=== PATIENT | male | born 1960 | race Caucasian/White ===

== ENCOUNTER 2016-12-07 22:29 | Emergency (ER) | payer SELFPAY ==
[~2016-12-07 22:29] MED LIST: LIPI20TA PO; PLAV75TA29 PO
[2016-12-07 22:31] VITALS: BP 139/82; PULSE 80; RESP 16; TEMP 97.6; O2SAT 96
[2016-12-08 04:45] VITALS: BP 121/81; PULSE 71; RESP 18; O2SAT 98
[2016-12-08 05:05] VITALS: O2SAT 99
--- NOTE | 2016-12-08 05:11 | PD ---
HPI Chief Complaint: GI Complaint Time Seen by Provider: 04:42 Travel History International Travel<30 days: No Contact w/Intl Traveler<30days: No Traveled to known affect area: No History of Present Illness HPI The patient is a 56 year old male who presents to the [facility] emergency department with a history of reportedly feeling tired all of the time recently and last week developing explosive diarrhea. The patient reports that the diarrhea briefly resolved and then recurred a few days ago. He reports that he is having dark liquidy stools 2-3 times per day. He denies having any nausea or vomiting. He reports that he has left sided abdominal discomfort associated with this. He reports that it is an aching sensation. The patient denies drinking any alcohol. He reports that he quit drinking 50 days ago. The patient denies any known recent fevers, however he has had chills. He denies any new cough, congestion, neck pain, chest pain, shortness of breath, urinary symptoms, or neurologic symptoms. PFS Past Medical History Narrative Medical The patient's past medical history is significant for alcohol abuse in the past , history of COPD, history of CVA, history of depression, anxiety disorder, hypertension, tobacco abuse. Asthma: Yes Autoimmune Disease: No Blood Disorders: No Anxiety: Yes Depression: Yes Heart Rhythm Problems: No Cancer: No Cardiovascular Problems: No High Cholesterol: No Chemotherapy: No Chest Pain: No Congestive Heart Failure: No COPD: Yes Cerebrovascular Accident: Yes Diabetes: No Diminished Hearing: No Endocrine: No Gastrointestinal Disorders: Yes GERD: Yes Genitourinary: No Hypertension: No Immune Disorder: No Inguinal Hernia: Yes Implanted Vascular Access Dvce: No Musculoskeletal: No Neurologic: No Psychiatric: No Reproductive: No Respiratory: Yes Immunizations Current: Yes Myocardial Infarction: No Radiation Therapy: No Renal Failure: No Schizophrenia: No Sleep Apnea: No Thyroid Disease: No Past Surgical History Narrative Surgical The patient's past surgical history is significant for a carpal tunnel release, history of a hernia repair, history of cardiac surgery. Abdominal Surgery: Yes (R HERNIA 30 YEARS AGO) AICD: No Arteriovenous Shunt: No Insulin Pump: No Joint Replacement: No Neurologic Surgery: Yes (carpal tunnel surgery, early ) Pacemaker: No Social History Alcohol Use: No Tobacco Use: Yes (2 ppd) Substance Use: No Allergies-Medications (Allergen,Severity, Reaction): Coded Allergies: Penicillin (Verified Allergy, Severe, UNKNOWN CHILDHOOD, 12/07/16) Reported Meds & Prescriptions Reported Meds & Active Scripts Active Lipitor (Atorvastatin Calcium) 20 Mg Tab 20 Mg PO HS Plavix (Clopidogrel Bisulfate) 75 Mg Tab 75 Mg PO DAILY Review of Systems General / Constitutional: No: Fever Eyes: No: Visual changes HENT: No: Headaches Cardiovascular: No: Chest Pain or Discomfort Respiratory: No: Shortness of Breath Gastrointestinal: Positive: Diarrhea, Abdominal Pain, Changes in Bowel Habits, No: Nausea, Vomiting, Hematemesis, Hematochezia, Constipation, Indigestion, Loss of Appetite Genitourinary: No: Dysuria Musculoskeletal: No: Pain Skin: No Rash Neurologic: Positive: Weakness (generalized weakness), No: Focal Abnormalities , Change in Mentation, Sensory Disturbance Psychiatric: No: Depression Endocrine: No: Polydipsia Hematologic/Lymphatic: No: Easy Bruising Physical Exam Narrative General: The patient is a well-developed well-nourished male in no acute distress. Head and Neck exam: Head is normocephalic atraumatic. Eyes: People are equal round and reactive to light. Nose: Midline septum with pink mucous membranes Mouth: Dentition unremarkable. Moist mucus membranes. Posterior oropharynx is not erythematous. No tonsillar hypertrophy. Uvula midline. Airway patent. Neck: No palpable lymphadenopathy. No nuchal rigidity. No thyromegaly. Cardiovascular: Regular rate and rhythm without murmurs, gallops, or rubs. Lungs: Clear to auscultation bilaterally. No wheezes, rhonchi, or rales. Abdomen: Soft, with tenderness on palpation in the left upper and left lower quadrant of the abdomen, no other tenderness on palpation elicited on the right side or suprapubic area. No tenderness over the midepigastric area. No guarding, rebound, or rigidity. Negative [place] sign. No tenderness on palpation of McBurney's point. Normal bowel sounds are audible. Extremities: No clubbing, cyanosis, or edema. 2+ pulses in all 4 extremities. No calf tenderness on palpation. Back: No spinous process tenderness to palpation. No costovertebral angle tenderness to palpation. Neurologic Exam: Grossly nonfocal. Data Data Last Documented VS Vital Signs Date Time Temp Pulse Resp B/P Pulse Ox O2 Delivery O2 Flow Rate FiO2 1/25/17 06:07 68 18 110/76 97 Room Air 12/07/16 22:31 97.6 Orders Electrocardiogram (12/08/16 05:01) Complete Blood Count With Diff (12/08/16 05:01) Comprehensive Metabolic Panel (12/08/16 05:01) Prothrombin Time / Inr (Pt) (12/08/16 05:01) Act Partial Throm Time (Ptt) (12/08/16 05:01) Lipase (12/08/16 05:01) Urinalysis - C+S If Indicated (12/08/16 05:01) Magnesium (Mg) (12/08/16 05:01) C Diff Toxin Pcr (12/08/16 05:01) Ct Abd/Pel W Iv Contrast(Rout) (12/08/16 05:01) Iv Access Insert/Monitor (12/08/16 05:01) Ecg Monitoring (12/08/16 05:01) Oximetry (12/08/16 05:01) Stool Wbc (Leukocytes) (12/08/16 05:01) Enteric Path (Stool) (12/08/16 05:01) Sodium Chlor 0.9% 1000 Ml Inj (Ns 1000 M (12/08/16 05:15) Iohexol 350 Inj (Omnipaque 350 Inj) (12/08/16 07:11) Labs Laboratory Tests Test 12/08/16 05:15 White Blood Count 5.4 TH/MM3 Red Blood Count 4.18 MIL/MM3 Hemoglobin 13.5 GM/DL Hematocrit 39.2 % Mean Corpuscular Volume 93.9 FL Mean Corpuscular Hemoglobin 32.4 PG Mean Corpuscular Hemoglobin 34.5 % Concent Red Cell Distribution Width 12.4 % Platelet Count 219 TH/MM3 Mean Platelet Volume 8.0 FL Neutrophils (%) (Auto) 40.3 % Lymphocytes (%) (Auto) 39.6 % Monocytes (%) (Auto) 14.1 % Eosinophils (%) (Auto) 5.0 % Basophils (%) (Auto) 1.0 % Neutrophils # (Auto) 2.2 TH/MM3 Lymphocytes # (Auto) 2.2 TH/MM3 Monocytes # (Auto) 0.8 TH/MM3 Eosinophils # (Auto) 0.3 TH/MM3 Basophils # (Auto) 0.1 TH/MM3 CBC Comment DIFF FINAL Differential Comment Prothrombin Time 10.7 SEC Prothromb Time International 1.0 RATIO Ratio Activated Partial 29.0 SEC Thromboplast Time Sodium Level 141 MEQ/L Potassium Level 3.8 MEQ/L Chloride Level 106 MEQ/L Carbon Dioxide Level 24.8 MEQ/L Anion Gap 10 MEQ/L Blood Urea Nitrogen 6 MG/DL Creatinine 0.68 MG/DL Estimat Glomerular Filtration 121 ML/MIN Rate Random Glucose 85 MG/DL Calcium Level 8.5 MG/DL Magnesium Level 2.5 MG/DL Total Bilirubin 0.9 MG/DL Aspartate Amino Transf 11 U/L (AST/SGOT) Alanine Aminotransferase 17 U/L (ALT/SGPT) Alkaline Phosphatase 50 U/L Total Protein 7.0 GM/DL Albumin 3.6 GM/DL Lipase 113 U/L MDM Medical Decision Making Medical Screen Exam Complete: Yes Emergency Medical Condition: Yes Medical Record Reviewed: Yes Differential Diagnosis GI bleed, versus diverticulitis, versus colitis, versus gastroenteritis Narrative Course During the course of the patients emergency department visit, the patients history, examination, and differential diagnosis were reviewed with the patient. The patient had IV access obtained and blood work sent for analysis. The patient was placed on a cardiac/vascular sonographer with oximetry and blood pressure monitoring. An EKG was done on arrival. The patient's EKG shows a sinus rhythm heart rate of 70, no QRS widening. No ST segment elevation, T waves inverted in V1. A CT scan of the abdomen and pelvis has been ordered. The patient was provided normal saline 1 L IV fluid bolus. The patients laboratory studies were reviewed and remarkable for a CBC that is unremarkable except for a monocytosis of 14.1, CMP is unremarkable, PT PTT within normal limits. Radiology studies were reviewed and remarkable for a CT scan of the abdomen and pelvis that shows a parenchymal density abutting the lateral pleural and the left lower lobe that is nonspecific, some non-distention versus some wall thickening within the descending colon, no perforation or abscess, no diverticulitis. Fluid filled small bowel loops in the lower abdomen without obstruction, left renal cysts, borderline wall thickening within the right aspect of the urinary bladder. Multiple small lymph nodes throughout the retroperitoneum but none of which appear pathologically enlarged. The patient appears to have accommodation of mesenteric lymphadenitis and a possible mild colitis with the mild wall thickening versus nondistention of the descending colon. This is the side of the patient's discomfort, therefore the patient will be treated with antibiotic. The patient was given a prescription for Cipro and Flagyl. The patient was given a copy of the CT scan findings that were incidentally mentioned. He is instructed to follow-up with his primary care physician for L reexamination in the next 3 days. The patient is resting comfortably and feels better, is alert and in no distress. The patients results and examination findings were discussed with the patient. The repeat examination is unremarkable and benign. The history, exam, diagnostic testing, and current condition do not suggest any significant pathology to warrant further testing, continued ED treatment, admission, or surgical evaluation at this point. The vital signs have been stable. The patient does not have uncontrollable pain, intractable vomiting, or other significant symptoms. The patient's condition is stable and appropriate for discharge. The patient will pursue further outpatient evaluation with a primary care physician or other designated or consulting physician as indicated in the discharge instructions. The patient expressed understanding and was agreeable with this plan. Diagnosis Primary Impression: Abdominal pain Qualified Code: R10.9 - Abdominal pain, unspecified location Additional Impressions: Diarrhea Qualified Code: R19.7 - Diarrhea, unspecified type Colitis Mesenteric adenitis Referrals: [facility] 3 days [facility] Patient Assistance Program Patient Instructions: Colitis (ED), General Instructions Med/Other Pt SpecificInfo: Prescription(s) given Scripts Metronidazole (Flagyl)500 Mg [id number] Mg PO TID 7 Days Ref 0 Prov:Love Vazquez MD 12/08/16 Ciprofloxacin (Cipro)500 Mg [id number] Mg PO BID 7 Days Ref 0 Prov:Love Vazquez MD 12/08/16 Disposition: DISCHARGE HOME Condition: Stable Love Vazquez MD Dec 08, 2016 05:11
[2016-12-08] MEDS ORDERED: SODIUM CHLOR 0.9% 1000 ML INJ 1,000 ML IV ONE (05:15)
[2016-12-08 05:31] LABS: AUTOMATED NEUTROPHIL # 2.2 TH/MM3 (1.8-7.7); BASOPHIL # 0.1 TH/MM3 (0-0.2); EOSINOPHIL # 0.3 TH/MM3 (0-0.4); HEMATOCRIT 39.2 % (39.0-51.0); HEMO FLAGS DIFF FINAL; LYMPH % 39.6 % (9.0-44.0); LYMPHOCYTE # 2.2 TH/MM3 (1.0-4.8); MEAN CELL VOLUME 93.9 FL (80.0-100.0); MEAN CORPUSCULAR HEMOGLOBIN 32.4 PG (27.0-34.0); MEAN CORPUSCULAR HGB CONC 34.5 % (32.0-36.0); MONO % 14.1 % (0.0-8.0); NEUT % 40.3 % (16.0-70.0); PLATELET COUNT 219 TH/MM3 (150-450); RED BLOOD COUNT 4.18 MIL/MM3 (4.50-5.90); RED CELL DISTRIBUTION WIDTH 12.4 % (11.6-17.2); WHITE BLOOD COUNT 5.4 TH/MM3 (4.0-11.0)
[2016-12-08 05:37] LABS: PROTHROMBIN TIME - PATIENT 10.7 SEC (9.8-11.6)
[2016-12-08 05:58] LABS: ANION GAP 10 MEQ/L (5-15); AST (GOT) 11 U/L (15-37); BICARBONATE 24.8 MEQ/L (21.0-32.0); BLOOD UREA NITROGEN 6 MG/DL (7-18); CHLORIDE 106 MEQ/L (98-107); GLOMERULAR FILTRATION RATE 121 ML/MIN (>89); MAGNESIUM 2.5 MG/DL (1.5-2.5); POTASSIUM 3.8 MEQ/L (3.5-5.1); SODIUM (NA) 141 MEQ/L (136-145)
[2016-12-08 06:01] LABS: ALKALINE PHOSPHATASE 50 U/L (45-117); ALT (GPT) 17 U/L (12-78); TOTAL BILIRUBIN ADULT 0.9 MG/DL (0.2-1.0)
[2016-12-08 06:07] VITALS: BP 110/76; PULSE 68; RESP 18; O2SAT 97
[2016-12-08] MEDS ORDERED: IOHEXOL 350 MG/ML 10 ML VIAL (for RAD DIAG) IV ONE (07:11)
--- NOTE | 2016-12-08 07:28 | RADRPT ---
EXAM DATE/TIME: 12/08/2016 06:58 [facility] COMPARISON: No previous studies available for comparison. INDICATIONS : Abdomen pain with diarrhea, evaluate for diverticulitis. IV CONTRAST: 96 cc Omnipaque 350 (iohexol) IV ORAL CONTRAST: No oral contrast ingested. RADIATION DOSE: 4.99 CTDIvol (mGy) MEDICAL HISTORY : Cerebrovascular disease. Chronic obstructive pulmonary disease. SURGICAL HISTORY : Inguinal hernia repair. ENCOUNTER: Initial ACUITY: 2 days PAIN SCALE: 3/10 LOCATION: abdomen TECHNIQUE: Volumetric scanning of the abdomen and pelvis was performed. Using automated exposure control and ad justment of the mA and/or kV according to patient size, radiation dose was kept as low as reasonably achievable to obtain optimal diagnostic quality images. FINDINGS: LOWER LUNGS: Parenchymal density abutting the lateral pleura in the left lower lobe LIVER: Homogeneous density without lesion. There is no dilation of the biliary tree. No calcified gallston es. SPLEEN: Normal size without lesion. PANCREAS: Within normal limits. KIDNEYS: Normal in size and shape. There is no mass, stone or hydronephrosis. ADRENAL GLANDS: Within normal limits. VASCULAR: There is no aortic aneurysm. BOWEL/MESENTERY: No diverticulitis. Nondistention versus wall thickening within the descending colon. No perforation. No paracolic fluid collections. There are some fluid-filled small bowel loops without obstruction in the lower abdomen.. ABDOMINAL WALL: Within normal limits. RETROPERITONEUM: There are multiple small lymph nodes seen. BLADDER: Borderline right-sided wall thickening. The wall measures between 3 and 4 mm. No evidence of mass. REPRODUCTIVE: Within normal limits. INGUINAL: There is no lymphadenopathy or hernia. MUSCULOSKELETAL: Within normal limits for patient age. CONCLUSION: 1. Parenchymal density abutting the lateral pleural and the left lower lobe is nonspecific. 2. Nondistention versus some wall thickening within the descending colon. No perforation or abscess. No diverticulitis. 3. Fluid filled small bowel loops in the lower abdomen without obstruction. 4. Left renal cyst. 5. Borderline wall thickening within the right aspect of the urinary bladder. 6. Multiple small lymph nodes throughout the retroperitoneum but none of which appear pathologically enlarged. Kelton Pryor MD on December 08, 2016 at 7:21 Board Certified Radiologist. This report was verified electronically.
[2016-12-08] MEDS ORDERED: METR-1 PO (07:57)
[2016-12-08] MEDS ORDERED: CIPR-9 PO (07:57)
--- NOTE | 2016-12-08 08:10 | EKG ---
Date Performed: 12/08/2016 Time Performed: 04:45:45 PTAGE: 56 years EKG: Sinus rhythm NORMAL ECG NO SIGNIFICANT CHANGE FROM PRIOR ELECTROCARDIOGRAM. PREVIOUS TRACING : 10/17/2016 22.20 DOCTOR: John Monte Interpretating Date/Time 12/08/2016 08:08:31
[2016-12-08 08:32] VITALS: BP 132/80
== END 2016-12-08 08:35 | disposition home or self-care (01) ==
LOC: NEPE 22:29
DX: I88.0 Nonspecific mesenteric lymphadenitis (principal); K52.9 Noninfective gastroenteritis and colitis, unspecified; R10.9 Unspecified abdominal pain; I10 Essential (primary) hypertension; F17.200 Nicotine dependence, unspecified, uncomplicated; Z87.09 Personal history of other diseases of the respiratory system; Z86.73 Personal history of transient ischemic attack (TIA), and cerebral infarction without residual deficits; Z86.59 Personal history of other mental and behavioral disorders; Z87.19 Personal history of other diseases of the digestive system
CPT/HCPCS: 74177; 80053; 83690; 83735; 85025; 85610; 85730; 93005; 99284; J7030; Q9967

== ENCOUNTER 2016-12-13 10:37 | Emergency (ER) | payer SELFPAY ==
[~2016-12-13] VITALS: Ht 185.4 cm; Wt 66.0 kg
[~2016-12-13 10:37] MED LIST changes: +CIPR-9 PO; +METR-1 PO
[2016-12-13 10:39] VITALS: BP 111/70; PULSE 89; RESP 17; TEMP 98.1; O2SAT 96
--- NOTE | 2016-12-13 11:29 | PD ---
HPI Chief Complaint: GI Complaint Time Seen by Provider: 11:29 Travel History International Travel<30 days: No Contact w/Intl Traveler<30days: No Traveled to known affect area: No History of Present Illness HPI 56-year-old male presents to emergency department for evaluation of persistent diarrhea. Patient states that his diarrhea is likely with with brown specks in it. He was seen and evaluated by Dr. Vazquez on the of this month. Patient was started on Cipro and Flagyl due to nonspecific lymphadenopathy of the retroperitoneum/mesenteric adenitis. Patient states he does have some epigastric pain. He has had no fever or chills. He has been mildly nauseous and decreased appetite but no vomiting. No cough or chest congestion. No chest pain or tightness. No difficulty breathing. No other symptoms to report. PFSH Past Medical History Asthma: Yes Autoimmune Disease: No Blood Disorders: No Anxiety: Yes Depression: Yes Heart Rhythm Problems: No Cancer: No Cardiovascular Problems: No High Cholesterol: No Chemotherapy: No Chest Pain: No Congestive Heart Failure: No COPD: Yes Cerebrovascular Accident: Yes Diabetes: No Diminished Hearing: No Endocrine: No Gastrointestinal Disorders: Yes GERD: Yes Genitourinary: No Hypertension: No Immune Disorder: No Inguinal Hernia: Yes Implanted Vascular Access Dvce: No Musculoskeletal: No Neurologic: No Psychiatric: No Reproductive: No Respiratory: Yes Immunizations Current: Yes Myocardial Infarction: No Radiation Therapy: No Renal Failure: No Schizophrenia: No Sleep Apnea: No Thyroid Disease: No Past Surgical History Abdominal Surgery: Yes (R HERNIA 30 YEARS AGO) AICD: No Arteriovenous Shunt: No Insulin Pump: No Joint Replacement: No Neurologic Surgery: Yes (carpal tunnel surgery, early ) Pacemaker: No Social History Alcohol Use: No Tobacco Use: Yes (2 ppd) Substance Use: No Allergies-Medications (Allergen,Severity, Reaction): Coded Allergies: Penicillin (Verified Allergy, Severe, UNKNOWN CHILDHOOD, 12/13/16) Reported Meds & Prescriptions Reported Meds & Active Scripts Active Probiotic (Lactobacillus Acidophilus) 1 Cap Cap 2 Cap PO TIDAC Imodium A-D (Loperamide HCl) 2 Mg Cap 2 Mg PO Q6H PRN Flagyl (Metronidazole) 500 Mg Tab 500 Mg PO TID 7 Days Cipro (Ciprofloxacin HCl) 500 Mg Tab 500 Mg PO BID 7 Days Lipitor (Atorvastatin Calcium) 20 Mg Tab 20 Mg PO HS Plavix (Clopidogrel Bisulfate) 75 Mg Tab 75 Mg PO DAILY Review of Systems Except as stated in HPI: all other systems reviewed are Neg Physical Exam Narrative GENERAL: Well-nourished male patient, ambulatory no acute distress SKIN: Warm and dry. HEAD: Atraumatic. Normocephalic. EYES: Pupils equal and round. No scleral icterus. No injection or drainage. ENT: No nasal bleeding or discharge. Mucous membranes pink and moist. NECK: Trachea midline. No JVD. CARDIOVASCULAR: Regular rate and rhythm. No murmur appreciated. RESPIRATORY: No accessory muscle use. Diminished to auscultation. Breath sounds equal bilaterally. GASTROINTESTINAL: Abdomen soft, nondistended. Epigastric tenderness to palpation. No guarding. No rebound tenderness.. MUSCULOSKELETAL: No obvious deformities. No clubbing. No cyanosis. No edema. NEUROLOGICAL: Awake and alert. No obvious cranial nerve deficits. Motor grossly within normal limits. Normal speech. Data Data Last Documented VS Vital Signs Date Time Temp Pulse Resp B/P Pulse Ox O2 Delivery O2 Flow Rate FiO2 12/13/16 13:51 87 15 148/78 100 12/13/16 12:10 Room Air 12/13/16 10:39 98.1 Orders Complete Blood Count With Diff (12/13/16 11:18) Comprehensive Metabolic Panel (12/13/16 11:18) Prothrombin Time / Inr (Pt) (12/13/16 11:18) Act Partial Throm Time (Ptt) (12/13/16 11:18) Urinalysis - C+S If Indicated (12/13/16 11:18) Abdomen, Flat & Upright (12/13/16 ) Electrocardiogram (12/13/16 11:18) C Diff Toxin Pcr (12/13/16 12:49) Stool Ova And Parasite Screen (12/13/16 13:17) Enteric Path (Stool) (12/13/16 13:17) Labs Laboratory Tests Test 12/13/16 11:41 White Blood Count 4.7 TH/MM3 Red Blood Count 4.36 MIL/MM3 Hemoglobin 14.2 GM/DL Hematocrit 40.7 % Mean Corpuscular Volume 93.4 FL Mean Corpuscular Hemoglobin 32.5 PG Mean Corpuscular Hemoglobin 34.8 % Concent Red Cell Distribution Width 12.3 % Platelet Count 242 TH/MM3 Mean Platelet Volume 7.6 FL Neutrophils (%) (Auto) 41.2 % Lymphocytes (%) (Auto) 38.8 % Monocytes (%) (Auto) 14.4 % Eosinophils (%) (Auto) 4.6 % Basophils (%) (Auto) 1.0 % Neutrophils # (Auto) 1.9 TH/MM3 Lymphocytes # (Auto) 1.8 TH/MM3 Monocytes # (Auto) 0.7 TH/MM3 Eosinophils # (Auto) 0.2 TH/MM3 Basophils # (Auto) 0.0 TH/MM3 CBC Comment DIFF FINAL Differential Comment Prothrombin Time 11.4 SEC Prothromb Time International 1.0 RATIO Ratio Activated Partial 28.9 SEC Thromboplast Time Urine Color DARK-YELLOW Urine Turbidity CLEAR Urine pH 6.0 Urine Specific [place] 1.026 Urine Protein TRACE mg/dL Urine Glucose (UA) NEG mg/dL Urine Ketones NEG mg/dL Urine Occult Blood NEG Urine Nitrite NEG Urine Bilirubin NEG Urine Urobilinogen 2.0 MG/DL Urine Leukocyte Esterase SMALL Urine RBC 1 /hpf Urine WBC 2 /hpf Urine Squamous Epithelial <1 /hpf Cells Urine Hyaline Casts 4 /lpf Urine Mucus MOD /lpf Microscopic Urinalysis Comment CULT NOT INDICATED Sodium Level 139 MEQ/L Potassium Level 4.3 MEQ/L Chloride Level 105 MEQ/L Carbon Dioxide Level 27.4 MEQ/L Anion Gap 7 MEQ/L Blood Urea Nitrogen 6 MG/DL Creatinine 0.83 MG/DL Estimat Glomerular Filtration 96 ML/MIN Rate Random Glucose 108 MG/DL Calcium Level 8.7 MG/DL Total Bilirubin 0.6 MG/DL Aspartate Amino Transf 22 U/L (AST/SGOT) Alanine Aminotransferase 25 U/L (ALT/SGPT) Alkaline Phosphatase 48 U/L Total Protein 7.1 GM/DL Albumin 3.7 GM/DL [facility] Medical Decision Making Medical Screen Exam Complete: Yes Emergency Medical Condition: Yes Medical Record Reviewed: Yes Differential Diagnosis Ingestion versus gastritis versus diverticulitis versus colitis versus neoplasm Narrative Course 56-year-old male presents to emergency department for evaluation of persistent diarrhea. Patient appears without distress. Work up was initiated and triaged for reevaluation and no indication of worsening infection. Once a medical bed becomes available, patient will be transferred and care seen by that provider. Scripts Lactobacillus Acidophilus (Probiotic)1 Cap Cap2 Cap PO TIDAC #180 CAP Ref 0 Prov:Janna Dejesus MD 12/13/16 Loperamide (Imodium A-D)2 Mg Cap2 Mg PO Q6H PRN (DIARRHEA) #30 CAP Ref 0 Prov:Janna Dejesus MD 12/13/16 Belkis Dimas Dec 13, 2016 11:29
[2016-12-13 11:55] LABS: AUTOMATED NEUTROPHIL # 1.9 TH/MM3 (1.8-7.7); EOSINOPHIL # 0.2 TH/MM3 (0-0.4); EOSINOPHIL % 4.6 % (0.0-4.0); HEMATOCRIT 40.7 % (39.0-51.0); HEMO FLAGS DIFF FINAL; LYMPH % 38.8 % (9.0-44.0); LYMPHOCYTE # 1.8 TH/MM3 (1.0-4.8); MEAN CELL VOLUME 93.4 FL (80.0-100.0); MEAN CORPUSCULAR HEMOGLOBIN 32.5 PG (27.0-34.0); MEAN CORPUSCULAR HGB CONC 34.8 % (32.0-36.0); MONO % 14.4 % (0.0-8.0); NEUT % 41.2 % (16.0-70.0); PLATELET COUNT 242 TH/MM3 (150-450); RED BLOOD COUNT 4.36 MIL/MM3 (4.50-5.90); RED CELL DISTRIBUTION WIDTH 12.3 % (11.6-17.2); WHITE BLOOD COUNT 4.7 TH/MM3 (4.0-11.0)
[2016-12-13 11:56] LABS: BLOOD, URINE NEG (NEG); GLUCOSE,URINE NEG (NEG); HYALINE CAST, URINE 4 /lpf (RARE); KETONE, URINE NEG (NEG); MUCUS URINE MOD /lpf (OCC); NITRITE,URINE NEG (NEG); SQUAMOUS EPITHELIAL CELL URINE <1 /hpf (0-5); URINE COLOR DARK-YELLOW (YELLW/STRAW)
[2016-12-13 11:57] LABS: COMMENT (UR) CULT NOT INDICATED; CULTURE IF INDICATED CULT NOT INDICATED
[2016-12-13 12:05] LABS: APTT (PATIENT) 28.9 SEC (24.3-30.1); PROTHROMBIN TIME - PATIENT 11.4 SEC (9.8-11.6)
[2016-12-13 12:10] VITALS: BP 110/65; PULSE 70; RESP 16; O2SAT 95
[2016-12-13 12:10] LABS: ANION GAP 7 MEQ/L (5-15); AST (GOT) 22 U/L (15-37); BICARBONATE 27.4 MEQ/L (21.0-32.0); BLOOD UREA NITROGEN 6 MG/DL (7-18); CHLORIDE 105 MEQ/L (98-107); GLOMERULAR FILTRATION RATE 96 ML/MIN (>89); POTASSIUM 4.3 MEQ/L (3.5-5.1); SODIUM (NA) 139 MEQ/L (136-145)
[2016-12-13 12:13] LABS: ALKALINE PHOSPHATASE 48 U/L (45-117); ALT (GPT) 25 U/L (12-78); TOTAL BILIRUBIN ADULT 0.6 MG/DL (0.2-1.0)
--- NOTE | 2016-12-13 12:44 | RADRPT ---
EXAM DATE/TIME: 12/13/2016 12:27 [facility] COMPARISON: CT ABDOMEN & PELVIS W CONTRAST, December 08, 2016, 6:58. INDICATIONS : Abdominal pain. MEDICAL HISTORY : None. SURGICAL HISTORY : None. ENCOUNTER: Initial ACUITY: 1 day PAIN SCORE: 6/10 LOCATION: Bilateral abdomen FINDINGS: Supine and upright views of the abdomen were performed. The abdominal bowel gas pattern is normal. No air fluid levels are seen. 1 mm calcification is seen overlying the right kidney, in the liver o n CT from 12/08/16. The visualized lower lungs are clear. No evidence of free intraperitoneal gas. The osseous structures are unremarkable. CONCLUSION: Negative for acute process. Greg Pope MD FACR on December 13, 2016 at 12:41 Board Certified Radiologist. This report was verified electronically.
[2016-12-13] MEDS ORDERED: LACTCAP8 PO (13:16)
[2016-12-13] MEDS ORDERED: LOPE7.5C PO (13:16)
--- NOTE | 2016-12-13 13:17 | PD ---
Data Data Last Documented VS Vital Signs Date Time Temp Pulse Resp B/P Pulse Ox O2 Delivery O2 Flow Rate FiO2 12/13/16 12:10 70 16 110/65 95 Room Air 12/13/16 10:39 98.1 Orders Complete Blood Count With Diff (12/13/16 11:18) Comprehensive Metabolic Panel (12/13/16 11:18) Prothrombin Time / Inr (Pt) (12/13/16 11:18) Act Partial Throm Time (Ptt) (12/13/16 11:18) Urinalysis - C+S If Indicated (12/13/16 11:18) Abdomen, Flat & Upright (12/13/16 ) Electrocardiogram (12/13/16 11:18) C Diff Toxin Pcr (12/13/16 12:49) Labs Laboratory Tests Test 12/13/16 11:41 White Blood Count 4.7 TH/MM3 Red Blood Count 4.36 MIL/MM3 Hemoglobin 14.2 GM/DL Hematocrit 40.7 % Mean Corpuscular Volume 93.4 FL Mean Corpuscular Hemoglobin 32.5 PG Mean Corpuscular Hemoglobin 34.8 % Concent Red Cell Distribution Width 12.3 % Platelet Count 242 TH/MM3 Mean Platelet Volume 7.6 FL Neutrophils (%) (Auto) 41.2 % Lymphocytes (%) (Auto) 38.8 % Monocytes (%) (Auto) 14.4 % Eosinophils (%) (Auto) 4.6 % Basophils (%) (Auto) 1.0 % Neutrophils # (Auto) 1.9 TH/MM3 Lymphocytes # (Auto) 1.8 TH/MM3 Monocytes # (Auto) 0.7 TH/MM3 Eosinophils # (Auto) 0.2 TH/MM3 Basophils # (Auto) 0.0 TH/MM3 CBC Comment DIFF FINAL Differential Comment Prothrombin Time 11.4 SEC Prothromb Time International 1.0 RATIO Ratio Activated Partial 28.9 SEC Thromboplast Time Urine Color DARK-YELLOW Urine Turbidity CLEAR Urine pH 6.0 Urine Specific [place] 1.026 Urine Protein TRACE mg/dL Urine Glucose (UA) NEG mg/dL Urine Ketones NEG mg/dL Urine Occult Blood NEG Urine Nitrite NEG Urine Bilirubin NEG Urine Urobilinogen 2.0 MG/DL Urine Leukocyte Esterase SMALL Urine RBC 1 /hpf Urine WBC 2 /hpf Urine Squamous Epithelial <1 /hpf Cells Urine Hyaline Casts 4 /lpf Urine Mucus MOD /lpf Microscopic Urinalysis Comment CULT NOT INDICATED Sodium Level 139 MEQ/L Potassium Level 4.3 MEQ/L Chloride Level 105 MEQ/L Carbon Dioxide Level 27.4 MEQ/L Anion Gap 7 MEQ/L Blood Urea Nitrogen 6 MG/DL Creatinine 0.83 MG/DL Estimat Glomerular Filtration 96 ML/MIN Rate Random Glucose 108 MG/DL Calcium Level 8.7 MG/DL Total Bilirubin 0.6 MG/DL Aspartate Amino Transf 22 U/L (AST/SGOT) Alanine Aminotransferase 25 U/L (ALT/SGPT) Alkaline Phosphatase 48 U/L Total Protein 7.1 GM/DL Albumin 3.7 GM/DL MDM Supervised Visit with SHEEBA: Yes Narrative Course I, Dr. Dejesus, have reviewed the advance practice practioner's documentation and am in agreement, met with the patient face to face, made the diagnosis, and the medical decision making was done by me. *My assessment and Findings: 56-year-old male here with complaint of persistent diarrhea over the course of the last several weeks. Seen here recently with negative workup, imaging and treated empirically with Cipro and Flagyl due to lymphadenopathy in the retroperitoneum and mesenteric adenitis. His symptoms have persisted. His exam is unremarkable without any reproducible tenderness. Hemoccult negative per nurse practitioner exam. Differential includes mesenteric adenitis, chronic diarrhea, infectious diarrhea. Abdominal examination is benign making peritoneal pathology unlikely. Laboratory workup, x-ray were negative. We will try to obtain stool sample for C. difficile, enteric pathogen. We'll discharge to home with Imodium and stool bulk and agents while waiting all patient GI follow-up. Diagnosis Primary Impression: Diarrhea Qualified Code: R19.7 - Diarrhea, unspecified type Referrals: Luis F Kohli MD call for appointment Assembly Adjuster call for appointment Additional Instruction: Imodium as prescribed. Med/Other Pt SpecificInfo: Prescription(s) given Scripts Lactobacillus Acidophilus (Probiotic)1 Cap Cap2 Cap PO TIDAC #180 CAP Ref 0 Prov:Janna Dejesus MD 12/13/16 Loperamide (Imodium A-D)2 Mg Cap2 Mg PO Q6H PRN (DIARRHEA) #30 CAP Ref 0 Prov:Janna Dejesus MD 12/13/16 Disposition: DISCHARGE HOME Condition: Stable Janna Dejesus MD Dec 13, 2016 13:16
--- NOTE | 2016-12-13 13:34 | PD ---
HPI Chief Complaint: GI Complaint Time Seen by Provider: 13:05 Travel History International Travel<30 days: No Contact w/Intl Traveler<30days: No Traveled to known affect area: No History of Present Illness HPI 56-year-old male presents to the emergency department reevaluation of diarrhea. Patient states he has had diarrhea for 10 days. He was seen previously in the emergency Department was treated empirically with Flagyl and Cipro due to lymphadenopathy in the retroperitoneum and mesenteric adenitis. Patient states diarrhea has persisted. Reports 2 episodes of diarrhea today. He does state that the stools are "coffee-ground". He denies any fevers or chills. No abdominal pain. Patient has not tried anything [id number] including Imodium or fiber agent. He has not followed up outpatient. He denies any new complaints. PFSH Past Medical History Asthma: Yes Autoimmune Disease: No Blood Disorders: No Anxiety: Yes Depression: Yes Heart Rhythm Problems: No Cancer: No Cardiovascular Problems: No High Cholesterol: No Chemotherapy: No Chest Pain: No Congestive Heart Failure: No COPD: Yes Cerebrovascular Accident: Yes Diabetes: No Diminished Hearing: No Endocrine: No Gastrointestinal Disorders: Yes GERD: Yes Genitourinary: No Hypertension: No Immune Disorder: No Inguinal Hernia: Yes Implanted Vascular Access Dvce: No Musculoskeletal: No Neurologic: No Psychiatric: No Reproductive: No Respiratory: Yes Immunizations Current: Yes Myocardial Infarction: No Radiation Therapy: No Renal Failure: No Schizophrenia: No Sleep Apnea: No Thyroid Disease: No Past Surgical History Abdominal Surgery: Yes (R HERNIA 30 YEARS AGO) AICD: No Arteriovenous Shunt: No Insulin Pump: No Joint Replacement: No Neurologic Surgery: Yes (carpal tunnel surgery, early ) Pacemaker: No Social History Alcohol Use: No Tobacco Use: Yes (2 ppd) Substance Use: No Allergies-Medications (Allergen,Severity, Reaction): Coded Allergies: Penicillin (Verified Allergy, Severe, UNKNOWN CHILDHOOD, 12/13/16) Reported Meds & Prescriptions Reported Meds & Active Scripts Active Probiotic (Lactobacillus Acidophilus) 1 Cap Cap 2 Cap PO TIDAC Imodium A-D (Loperamide HCl) 2 Mg Cap 2 Mg PO Q6H PRN Flagyl (Metronidazole) 500 Mg Tab 500 Mg PO TID 7 Days Cipro (Ciprofloxacin HCl) 500 Mg Tab 500 Mg PO BID 7 Days Lipitor (Atorvastatin Calcium) 20 Mg Tab 20 Mg PO HS Plavix (Clopidogrel Bisulfate) 75 Mg Tab 75 Mg PO DAILY Review of Systems Except as stated in HPI: all other systems reviewed are Neg Physical Exam Narrative GENERAL: Well-developed well-nourished male patient, ambulatory. Afebrile. SKIN: Warm and dry. HEAD: Normocephalic. Atraumatic. EYES: No scleral icterus. No injection or drainage. NECK: Supple, trachea midline. No JVD or lymphadenopathy. CARDIOVASCULAR: Regular rate and rhythm without murmurs, gallops, or rubs. RESPIRATORY: Breath sounds equal bilaterally. No accessory muscle use. Lungs sounds are clear to auscultation. GASTROINTESTINAL: Abdomen soft, non-tender, nondistended. No abdominal pain to palpation. MUSCULOSKELETAL: No cyanosis, or edema. BACK: Nontender without obvious deformity. No CVA tenderness. RECTAL EXAM: No masses or tenderness, stool is brown. Hemoccult is negative. Exam was done with nurse at bedside. Data Data Last Documented VS Vital Signs Date Time Temp Pulse Resp B/P Pulse Ox O2 Delivery O2 Flow Rate FiO2 12/13/16 12:10 70 16 110/65 95 Room Air 12/13/16 10:39 98.1 Orders Complete Blood Count With Diff (12/13/16 11:18) Comprehensive Metabolic Panel (12/13/16 11:18) Prothrombin Time / Inr (Pt) (12/13/16 11:18) Act Partial Throm Time (Ptt) (12/13/16 11:18) Urinalysis - C+S If Indicated (12/13/16 11:18) Abdomen, Flat & Upright (12/13/16 ) Electrocardiogram (12/13/16 11:18) C Diff Toxin Pcr (12/13/16 12:49) Stool Ova And Parasite Screen (12/13/16 13:17) Enteric Path (Stool) (12/13/16 13:17) Labs Laboratory Tests Test 12/13/16 11:41 White Blood Count 4.7 TH/MM3 Red Blood Count 4.36 MIL/MM3 Hemoglobin 14.2 GM/DL Hematocrit 40.7 % Mean Corpuscular Volume 93.4 FL Mean Corpuscular Hemoglobin 32.5 PG Mean Corpuscular Hemoglobin 34.8 % Concent Red Cell Distribution Width 12.3 % Platelet Count 242 TH/MM3 Mean Platelet Volume 7.6 FL Neutrophils (%) (Auto) 41.2 % Lymphocytes (%) (Auto) 38.8 % Monocytes (%) (Auto) 14.4 % Eosinophils (%) (Auto) 4.6 % Basophils (%) (Auto) 1.0 % Neutrophils # (Auto) 1.9 TH/MM3 Lymphocytes # (Auto) 1.8 TH/MM3 Monocytes # (Auto) 0.7 TH/MM3 Eosinophils # (Auto) 0.2 TH/MM3 Basophils # (Auto) 0.0 TH/MM3 CBC Comment DIFF FINAL Differential Comment Prothrombin Time 11.4 SEC Prothromb Time International 1.0 RATIO Ratio Activated Partial 28.9 SEC Thromboplast Time Urine Color DARK-YELLOW Urine Turbidity CLEAR Urine pH 6.0 Urine Specific [place] 1.026 Urine Protein TRACE mg/dL Urine Glucose (UA) NEG mg/dL Urine Ketones NEG mg/dL Urine Occult Blood NEG Urine Nitrite NEG Urine Bilirubin NEG Urine Urobilinogen 2.0 MG/DL Urine Leukocyte Esterase SMALL Urine RBC 1 /hpf Urine WBC 2 /hpf Urine Squamous Epithelial <1 /hpf Cells Urine Hyaline Casts 4 /lpf Urine Mucus MOD /lpf Microscopic Urinalysis Comment CULT NOT INDICATED Sodium Level 139 MEQ/L Potassium Level 4.3 MEQ/L Chloride Level 105 MEQ/L Carbon Dioxide Level 27.4 MEQ/L Anion Gap 7 MEQ/L Blood Urea Nitrogen 6 MG/DL Creatinine 0.83 MG/DL Estimat Glomerular Filtration 96 ML/MIN Rate Random Glucose 108 MG/DL Calcium Level 8.7 MG/DL Total Bilirubin 0.6 MG/DL Aspartate Amino Transf 22 U/L (AST/SGOT) Alanine Aminotransferase 25 U/L (ALT/SGPT) Alkaline Phosphatase 48 U/L Total Protein 7.1 GM/DL Albumin 3.7 GM/DL [facility] Medical Decision Making Medical Screen Exam Complete: Yes Emergency Medical Condition: Yes Medical Record Reviewed: Yes Differential Diagnosis Chronic diarrhea versus C. difficile versus colitis versus mesenteric adenitis Narrative Course 56-year-old male presents back to the emergency department for evaluation of diarrhea for 10 days. Patient had workup recently in the emergency department and was discharged prescription for Cipro and Flagyl. Patient has no abdominal pain to palpation and appears well. CBC shows no acute abnormalities. CMP shows no acute abnormalities. Coags are negative. Urine is negative for acute infection. C. difficile is pending. Patient is discharged with a prescription for Imodium and probiotic. He is instructed to follow-up with chancellor. Return for any acute worsening of symptoms. Diagnosis Primary Impression: Diarrhea Qualified Code: R19.7 - Diarrhea, unspecified type Referrals: Luis F Kohli MD call for appointment Digital Tech call for appointment Patient Instructions: Acute Diarrhea (ED), General Instructions Additional Instructions: Imodium as prescribed. Follow up with GI. Med/Other Pt SpecificInfo: Prescription(s) given Scripts Lactobacillus Acidophilus (Probiotic)1 Cap Cap2 Cap PO TIDAC #180 CAP Ref 0 Prov:Janna Dejesus MD 12/13/16 Loperamide (Imodium A-D)2 Mg Cap2 Mg PO Q6H PRN (DIARRHEA) #30 CAP Ref 0 Prov:Janna Dejesus MD 12/13/16 Disposition: 01 DISCHARGE HOME Condition: Stable Deisy King Dec 13, 2016 13:34
[2016-12-13 13:51] VITALS: BP 148/78
[2016-12-13 15:10] LABS: C. DIFF EPI 027 PRESUMPTIVE NEGATIVE (NEGATIVE); C. DIFF TOXIN PCR NEGATIVE (NEGATIVE)
== END 2016-12-13 14:00 | disposition home or self-care (01) ==
LOC: NEPA 10:37
DX: R19.7 Diarrhea, unspecified (principal); R10.13 Epigastric pain; J44.9 Chronic obstructive pulmonary disease, unspecified; J45.909 Unspecified asthma, uncomplicated; F17.200 Nicotine dependence, unspecified, uncomplicated
CPT/HCPCS: 74020; 80053; 81001; 85025; 85610; 85730; 87493; 99284

== ENCOUNTER 2017-01-13 18:49 | Emergency (ER) | payer OTHER ==
[~2017-01-13] VITALS: Ht 180.3 cm; Wt 75.0 kg
[~2017-01-13 18:49] MED LIST changes: +LACTCAP8 PO; +LOPE7.5C PO
[2017-01-13 19:08] VITALS: BP 116/99; PULSE 92; RESP 18; TEMP 97.1
[2017-01-13 19:35] LABS: AUTOMATED NEUTROPHIL # 1.4 TH/MM3 (1.8-7.7); BASOPHIL % 0.9 % (0.0-2.0); EOSINOPHIL # 0.2 TH/MM3 (0-0.4); EOSINOPHIL % 3.3 % (0.0-4.0); HEMATOCRIT 43.7 % (39.0-51.0); HEMO FLAGS DIFF FINAL; LYMPH % 60.1 % (9.0-44.0); LYMPHOCYTE # 3.2 TH/MM3 (1.0-4.8); MEAN CELL VOLUME 94.4 FL (80.0-100.0); MEAN CORPUSCULAR HEMOGLOBIN 32.7 PG (27.0-34.0); MEAN CORPUSCULAR HGB CONC 34.6 % (32.0-36.0); MONO % 9.9 % (0.0-8.0); NEUT % 25.8 % (16.0-70.0); PLATELET COUNT 221 TH/MM3 (150-450); RED BLOOD COUNT 4.63 MIL/MM3 (4.50-5.90); RED CELL DISTRIBUTION WIDTH 15.4 % (11.6-17.2); WHITE BLOOD COUNT 5.3 TH/MM3 (4.0-11.0)
[2017-01-13 19:44] LABS: AMPHETAMINE, URINE NEG (NEG); BARBITURATES, URINE NEG (NEG); COCAINE, URINE NEG (NEG)
[2017-01-13 20:01] LABS: ANION GAP 6 MEQ/L (5-15)
[2017-01-13 20:04] LABS: ALKALINE PHOSPHATASE 58 U/L (45-117); ALT (GPT) 20 U/L (12-78); AST (GOT) 21 U/L (15-37); BLOOD UREA NITROGEN 3 MG/DL (7-18); CHLORIDE 105 MEQ/L (98-107); GLOMERULAR FILTRATION RATE 99 ML/MIN (>89); POTASSIUM 3.8 MEQ/L (3.5-5.1); SODIUM (NA) 141 MEQ/L (136-145); TOTAL BILIRUBIN ADULT 0.6 MG/DL (0.2-1.0)
[2017-01-13 20:16] VITALS: BP 136/91; PULSE 88; RESP 18; O2SAT 99
[2017-01-13] MEDS ORDERED: LORazepam 2 MG/ML VIAL IV PUSH PRN ×4 (20:45)
[2017-01-13] MEDS ORDERED: LORazepam 1 MG TAB PO PRN (20:45)
[2017-01-13] MEDS ORDERED: ACETAMINOPHEN 325 MG TAB PO PRN (20:45)
[2017-01-13] MEDS ORDERED: FLUMAZENIL 0.5 MG/5 ML VIAL IV PUSH PRN (20:45)
[2017-01-13] MEDS ORDERED: ONDANSETRON ODT 4 MG TAB PO PRN (20:45)
[2017-01-13] MEDS ORDERED: LORazepam 2 MG TAB PO PRN (20:45)
--- NOTE | 2017-01-13 21:18 | PD ---
HPI Chief Complaint: Psychiatric Symptoms Time Seen by Provider: 21:13 Travel History International Travel<30 days: No Contact w/Intl Traveler<30days: No Traveled to known affect area: No History of Present Illness HPI 56-year-old male that presents to the ED for evaluation of psych. Patient was Jaime acted by police after apparently he missed a sinus tenderness. Per patient he was to hurt himself to end his life secondary to depression. Per patient this is secondary to his son having committed suicide at age 13. Per patient is a 20-year-old depression. He takes no medications for this. Unclear as to if he follows up with anybody for this. Per patient he has no insurance and he cannot follow with anybody. He denies any medical complaints any other than some diarrhea that he's had for the past 2 months. Patient actually was workup for it about a month ago with no problems. Per patient history of congestive diarrhea. Per patient his depression is severe. Per patient he has no plan but is working on one. Patient denies any alcohol or substance abuse but does appear to be very intoxicated on exam. PFSH Past Medical History Asthma: Yes Autoimmune Disease: No Blood Disorders: No Anxiety: No Depression: Yes Heart Rhythm Problems: No Cancer: No Cardiovascular Problems: No High Cholesterol: No Chemotherapy: No Chest Pain: No Congestive Heart Failure: No COPD: Yes Cerebrovascular Accident: Yes (PT REPORTS "6 STROKES") Diabetes: No Patient Takes Glucophage: No Diminished Hearing: No Endocrine: No Gastrointestinal Disorders: Yes GERD: Yes Genitourinary: No Hypertension: No Immune Disorder: No Inguinal Hernia: Yes Implanted Vascular Access Dvce: No Musculoskeletal: No Neurologic: No Psychiatric: No Reproductive: No Respiratory: Yes Immunizations Current: Yes Myocardial Infarction: No Radiation Therapy: No Renal Failure: No Schizophrenia: No Seizures: No Sleep Apnea: No Thyroid Disease: No ?: Not Past Surgical History Abdominal Surgery: Yes (R HERNIA 30 YEARS AGO) AICD: No Arteriovenous Shunt: No Insulin Pump: No Joint Replacement: No Neurologic Surgery: Yes (carpal tunnel surgery, early ) Pacemaker: No Social History Alcohol Use: No Tobacco Use: Yes (2 ppd) Substance Use: No Allergies-Medications (Allergen,Severity, Reaction): Coded Allergies: Penicillin (Verified Allergy, Severe, UNKNOWN CHILDHOOD, 01/13/17) Reported Meds & Prescriptions Reported Meds & Active Scripts Active Probiotic (Lactobacillus Acidophilus) 1 Cap Cap 2 Cap PO TIDAC Imodium A-D (Loperamide HCl) 2 Mg Cap 2 Mg PO Q6H PRN Flagyl (Metronidazole) 500 Mg Tab 500 Mg PO TID 7 Days Cipro (Ciprofloxacin HCl) 500 Mg Tab 500 Mg PO BID 7 Days Lipitor (Atorvastatin Calcium) 20 Mg Tab 20 Mg PO HS Plavix (Clopidogrel Bisulfate) 75 Mg Tab 75 Mg PO DAILY Review of Systems ROS Limitations: Intoxication General / Constitutional: No: Fever, Chills, Weight Gain, Weight Loss, Other Eyes: No: Diploplia, Blurred Vision, Photophobia, Drainage, Redness, Foreign Body Sensation, Pain, Tearing, Blind Spots, Visual changes, Blindness, Other HENT: No: Headaches, Vertigo, Lightheadedness, Sore Throat, Rhinitis, Rhinorrhea, Congestion, Nosebleed, Neck Stiffness, Neck Pain, Masses, Gingival Bleeding, Dental Difficulties, Ear Discharge, Earache, Other Cardiovascular: No: Chest Pain or Discomfort, Palpitations, Irregular Rhythm, Tachycardia, Diaphoresis, Syncope, Dyspnea on exertion, Varicosities, Edema, Cyanosis, Varicosities, Phlebitis, Claudication, Other Respiratory: No: Cough, Shortness of Breath, Wheezing, Sneezing, Orthopnea, Hemoptysis, Stridor, Night Sweats, Pleuritic Pain, Other Gastrointestinal: Positive: Diarrhea, No: Nausea, Vomiting, Abdominal Pain, Hematemesis, Hematochezia, Constipation, Changes in Bowel Habits, Indigestion, Dysphagia, Loss of Appetite, Other Genitourinary: No: Urgency, Frequency, Dysuria, Nocturia, Hematuria, Decreased Urinary Output, Oliguria, Hesitancy, Dribbling, Incontinence, Pelvic Pain, Flank Pain, Dyspareunia, Discharge, Dysmenorrhea, Menorrhagia, Metorrhagia, Vaginal Bleeding, Other Musculoskeletal: No: Myalgias, Arthralgias, Limited ROM, Weakness, Cramping, Edema, Pain, Atrophy, Other Skin: No Rash, No Itching, No Dryness, No Lumps, No Hives, No Change in Pigmentation, No Change in nails, No Alopecia, No Lesions, No Breast Lumps, No Breast Tenderness, No Breast Swelling, No Other Neurologic: No: Weakness, Dizziness, Syncope, Focal Abnormalities, Coordination Problem, Tremor, Ataxia, Headache, Change in Mentation, Slurred Speech, Paresthesia, Incontinence, Seizures, Sensory Disturbance, Other Psychiatric: No: Anxiety, Depression, Suicidal Ideations, Disorder of Thought, Mood Disorder, Substance Abuse, Homicidal Ideation, Other Endocrine: No: Heat Intolerance, Cold Intolerance, Polyuria, Polydipsia, Other Hematologic/Lymphatic: No: Easy Bruising, Lymph Node Enlargement, Other Physical Exam Exam Limitations: Intoxication Narrative GENERAL: SKIN: Warm and dry. HEAD: Atraumatic. Normocephalic. EYES: Pupils equal and round. No scleral icterus. No injection or drainage. ENT: No nasal bleeding or discharge. Mucous membranes pink and moist. Tongue is midline. No uvula deviation. NECK: Trachea midline. No JVD. CARDIOVASCULAR: Regular rate and rhythm. No murmurs, S3, S4. RESPIRATORY: No accessory muscle use. Clear to auscultation. Breath sounds equal bilaterally. GASTROINTESTINAL: Abdomen soft, non-tender, nondistended. Hepatic and splenic margins not palpable. MUSCULOSKELETAL: Extremities without clubbing, cyanosis, or edema. No obvious deformities. NEUROLOGICAL: Awake and alert. No obvious cranial nerve deficits. Motor grossly within normal limits. Five out of 5 muscle strength in the arms and legs. Normal speech. PSYCHIATRIC: Intoxicated mood and affect; insight and judgment questionable. Data Data Last Documented VS Vital Signs Date Time Temp Pulse Resp B/P Pulse Ox O2 Delivery O2 Flow Rate FiO2 01/13/17 20:16 88 18 136/91 99 Room Air 01/13/17 19:08 97.1 Orders Complete Blood Count With Diff (01/13/17 19:10) Comprehensive Metabolic Panel (01/13/17 19:10) Psych Screen (01/13/17 19:10) Drug Screen, Random Urine (01/13/17 19:10) Alcohol (Ethanol) (01/13/17 19:10) Alcohol Withdrawal Asmt-Ciwa ONCE (01/13/17 20:35) Ondansetron Odt (Zofran Odt) (01/13/17 20:45) Acetaminophen (Tylenol) (01/13/17 20:45) Flumazenil Inj (Romazicon Inj) (01/13/17 20:45) Lorazepam (Ativan) (01/13/17 20:45) Lorazepam Inj (Ativan Inj) (3/2/17 20:45) Lorazepam (Ativan) (01/13/17 20:45) Lorazepam Inj (Ativan Inj) (01/13/17 20:45) Lorazepam Inj (Ativan Inj) (01/13/17 20:45) Lorazepam Inj (Ativan Inj) (01/13/17 20:45) Labs Laboratory Tests Test 01/13/17 19:17 White Blood Count 5.3 TH/MM3 Red Blood Count 4.63 MIL/MM3 Hemoglobin 15.1 GM/DL Hematocrit 43.7 % Mean Corpuscular Volume 94.4 FL Mean Corpuscular Hemoglobin 32.7 PG Mean Corpuscular Hemoglobin 34.6 % Concent Red Cell Distribution Width 15.4 % Platelet Count 221 TH/MM3 Mean Platelet Volume 8.2 FL Neutrophils (%) (Auto) 25.8 % Lymphocytes (%) (Auto) 60.1 % Monocytes (%) (Auto) 9.9 % Eosinophils (%) (Auto) 3.3 % Basophils (%) (Auto) 0.9 % Neutrophils # (Auto) 1.4 TH/MM3 Lymphocytes # (Auto) 3.2 TH/MM3 Monocytes # (Auto) 0.5 TH/MM3 Eosinophils # (Auto) 0.2 TH/MM3 Basophils # (Auto) 0.0 TH/MM3 CBC Comment DIFF FINAL Differential Comment Sodium Level 141 MEQ/L Potassium Level 3.8 MEQ/L Chloride Level 105 MEQ/L Carbon Dioxide Level 30.0 MEQ/L Anion Gap 6 MEQ/L Blood Urea Nitrogen 3 MG/DL Creatinine 0.81 MG/DL Estimat Glomerular Filtration 99 ML/MIN Rate Random Glucose 83 MG/DL Calcium Level 8.4 MG/DL Total Bilirubin 0.6 MG/DL Aspartate Amino Transf 21 U/L (AST/SGOT) Alanine Aminotransferase 20 U/L (ALT/SGPT) Alkaline Phosphatase 58 U/L Total Protein 8.0 GM/DL Albumin 4.1 GM/DL Urine Opiates Screen NEG Urine Barbiturates Screen NEG Urine Amphetamines Screen NEG Urine Benzodiazepines Screen NEG Urine Cocaine Screen NEG Urine Cannabinoids Screen NEG Ethyl Alcohol Level 292 MG/DL MDM Medical Decision Making Medical Screen Exam Complete: Yes Emergency Medical Condition: Yes Medical Record Reviewed: Yes Interpretation(s) CBC & BMP Diagram 01/13/17 19:17 Alcohol in the 292s LFTs within normal limits. Tox screen otherwise negative. Differential Diagnosis Depression versus suicidal ideation versus anxiety versus adjustment disorder versus mood disorder versus bipolar disorder versus schizophrenia versus paranoid disorder versus psychosis versus substance abuse versus alcohol abuse versus alcohol induced psychosis versus homicidality addition versus cutting versus personality disorder Narrative Course 56-year-old male that presents to the ED for evaluation of psych. Patient was properly sedated this withhis CT scan consistent with appears to be psychiatric illness. Patient complains of only diarrhea. Patient actually was seen here just a month ago and was given antibiotics per patient he is not better. At this time I'll recommend ordering some stool studies to see this patient has a parasite causing his symptoms. Labs will be ordered. Patient was medically cleared. Okay to be seen by psych. Mental health screening was discussed with the patient. 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
[2017-01-13 22:15] VITALS: BP 98/55; PULSE 87; RESP 20; O2SAT 97
[2017-01-14] MEDS ORDERED: PLAV75TA29 PO (00:41)
== END 2017-01-14 01:56 ==
LOC: NEPJ 18:49
DX: F10.129 Alcohol abuse with intoxication, unspecified (principal); F33.1 Major depressive disorder, recurrent, moderate; Y90.8 Blood alcohol level of 240 mg/100 ml or more
CPT/HCPCS: 80053; 80307; 80320; 85025; 87015; 99285

== ENCOUNTER 2017-02-22 12:37 | Emergency (ER) | payer SELFPAY ==
[~2017-02-22 12:37] MED LIST changes: -CIPR-9 PO; -LACTCAP8 PO; -LOPE7.5C PO; -METR-1 PO
[2017-02-22 12:40] VITALS: BP 137/80; PULSE 80; RESP 20; TEMP 98.3; O2SAT 95
[2017-02-22] MEDS ORDERED: SODIUM CHLORIDE 0.9% FLUSH 10 ML FLUSH IVF PRN (12:45)
[2017-02-22 13:19] LABS: AUTOMATED NEUTROPHIL # 1.9 TH/MM3 (1.8-7.7); BASOPHIL # 0.1 TH/MM3 (0-0.2); BASOPHIL % 1.7 % (0.0-2.0); EOSINOPHIL # 0.5 TH/MM3 (0-0.4); EOSINOPHIL % 7.4 % (0.0-4.0); HEMATOCRIT 45.8 % (39.0-51.0); HEMO FLAGS DIFF FINAL; LYMPH % 48.7 % (9.0-44.0); MEAN CORPUSCULAR HEMOGLOBIN 33.4 PG (27.0-34.0); MEAN CORPUSCULAR HGB CONC 34.4 % (32.0-36.0); MONO % 10.4 % (0.0-8.0); NEUT % 31.8 % (16.0-70.0); PLATELET COUNT 169 TH/MM3 (150-450); RED BLOOD COUNT 4.72 MIL/MM3 (4.50-5.90); RED CELL DISTRIBUTION WIDTH 16.2 % (11.6-17.2); WHITE BLOOD COUNT 6.1 TH/MM3 (4.0-11.0)
--- NOTE | 2017-02-22 13:25 | PD ---
HPI Chief Complaint: Alcohol/Drug Intoxication Time Seen by Provider: 12:43 Travel History International Travel<30 days: No Contact w/Intl Traveler<30days: No Traveled to known affect area: No History of Present Illness HPI Patient is a 56-year-old male who presents the emergency department with intoxication. Patient reportedly homeless and sleeping in a tent in the [facility]. A friend went to check on him and stated that he was less responsive than normal. Called EMS. When EMS arrived patient stated that he couldn't walk and wouldn't get out of the tent. He was removed from the tent per EMS and then was able ambulate independently for stretcher. Smells heavily of alcohol. Patient states that he has a history of previous CVA with left-sided deficit. Patient does not have any new deficit but is concerned that he may be having a stroke because he feels weak, generally. PFSH Past Medical History Asthma: Yes Autoimmune Disease: No Blood Disorders: No Anxiety: No Depression: Yes Heart Rhythm Problems: No Cancer: Yes (ORAL ) Cardiovascular Problems: No High Cholesterol: No Chemotherapy: No Chest Pain: No Congestive Heart Failure: No COPD: Yes Cerebrovascular Accident: Yes (PT REPORTS "6 STROKES") Diabetes: No Diminished Hearing: No Endocrine: No Gastrointestinal Disorders: Yes GERD: Yes Genitourinary: No Hypertension: No Immune Disorder: No Inguinal Hernia: Yes Implanted Vascular Access Dvce: No Musculoskeletal: No Neurologic: No Psychiatric: No Reproductive: No Respiratory: Yes Immunizations Current: Yes Myocardial Infarction: No Radiation Therapy: No Renal Failure: No Schizophrenia: No Seizures: No Sleep Apnea: No Thyroid Disease: No Tetanus Vaccination: > 5 Years Influenza Vaccination: No Past Surgical History Abdominal Surgery: Yes (R HERNIA 30 YEARS AGO) AICD: No Arteriovenous Shunt: No Insulin Pump: No Joint Replacement: No Neurologic Surgery: Yes (carpal tunnel surgery, early ) Oral Surgery: Yes (ALL TEETH REMOVED) Pacemaker: No Other Surgery: Yes (HERNIA REPAIR) Social History Alcohol Use: Yes (3-4 16OZ BEERS DAILY) Tobacco Use: Yes (2 ppd) Substance Use: Yes (ALCOHOL ABUSE) Allergies-Medications (Allergen,Severity, Reaction): Coded Allergies: Penicillin (Verified Allergy, Severe, UNKNOWN CHILDHOOD, 02/22/17) Reported Meds & Prescriptions Reported Meds & Active Scripts Active Lipitor (Atorvastatin Calcium) 20 Mg Tab 20 Mg PO HS Plavix (Clopidogrel Bisulfate) 75 Mg Tab 75 Mg PO DAILY Review of Systems ROS Limitations: Poor Historian Except as stated in HPI: all other systems reviewed are Neg Physical Exam Exam Limitations: Poor Historian Narrative GENERAL: Well-appearing male in no acute distress SKIN: Focused skin assessment warm/dry. HEAD: Atraumatic. Normocephalic. EYES: Pupils equal and round. No scleral icterus. No injection or drainage. ENT: No nasal bleeding or discharge. Mucous membranes pink and moist. NECK: Supple CARDIOVASCULAR: Regular rate and rhythm. No murmur appreciated. RESPIRATORY: No accessory muscle use. Clear to auscultation. Breath sounds equal bilaterally. GASTROINTESTINAL: Abdomen soft, non-tender, nondistended. MUSCULOSKELETAL: No obvious deformities. No edema. NEUROLOGICAL: Awake and alert. No obvious cranial nerve deficits. Left upper extremity and left lower extremity weakness compared to right, baseline per patient. No new focal deficit. Normal speech. PSYCHIATRIC: Appropriate mood and affect; insight and judgment normal. Data Data Last Documented VS Vital Signs Date Time Temp Pulse Resp B/P Pulse Ox O2 Delivery O2 Flow Rate FiO2 02/22/17 12:40 98.3 80 20 137/80 95 Orders Electrocardiogram (02/22/17 12:43) Complete Blood Count With Diff (02/22/17 12:43) Basic Metabolic Panel (Bmp) (02/22/17 12:43) Ct Brain W/O Iv Contrast(Rout) (02/22/17 12:43) Ecg Monitoring (02/22/17 12:43) Iv Access Insert/Monitor (02/22/17 12:43) Oximetry (02/22/17 12:43) Sodium Chloride 0.9% Flush (Ns Flush) (02/22/17 12:45) Alcohol (Ethanol) (02/22/17 12:43) Labs Laboratory Tests Test 02/22/17 12:48 White Blood Count 6.1 TH/MM3 Red Blood Count 4.72 MIL/MM3 Hemoglobin 15.8 GM/DL Hematocrit 45.8 % Mean Corpuscular Volume 97.0 FL Mean Corpuscular Hemoglobin 33.4 PG Mean Corpuscular Hemoglobin 34.4 % Concent Red Cell Distribution Width 16.2 % Platelet Count 169 TH/MM3 Mean Platelet Volume 8.1 FL Neutrophils (%) (Auto) 31.8 % Lymphocytes (%) (Auto) 48.7 % Monocytes (%) (Auto) 10.4 % Eosinophils (%) (Auto) 7.4 % Basophils (%) (Auto) 1.7 % Neutrophils # (Auto) 1.9 TH/MM3 Lymphocytes # (Auto) 3.0 TH/MM3 Monocytes # (Auto) 0.6 TH/MM3 Eosinophils # (Auto) 0.5 TH/MM3 Basophils # (Auto) 0.1 TH/MM3 CBC Comment DIFF FINAL Differential Comment Sodium Level 141 MEQ/L Potassium Level 4.1 MEQ/L Chloride Level 105 MEQ/L Carbon Dioxide Level 27.7 MEQ/L Anion Gap 8 MEQ/L Blood Urea Nitrogen 3 MG/DL Creatinine 0.66 MG/DL Estimat Glomerular Filtration 125 ML/MIN Rate Random Glucose 91 MG/DL Calcium Level 8.4 MG/DL Ethyl Alcohol Level 343 MG/DL MDM Medical Decision Making Medical Screen Exam Complete: Yes Emergency Medical Condition: Yes Medical Record Reviewed: Yes Differential Diagnosis 56-year-old homeless alcoholic male with previous history of CVA here with generalized weakness, malaise. Differential includes dehydration, electrolyte abnormality, symptomatic anemia, alcohol intoxication. Patient does not have any acute deficit, at baseline deficit per patient, but because he is a poor historian Will obtain head CT to evaluate for any new ischemic changes. Narrative Course Patient placed on monitor, IV established and blood obtained. Twelve-lead EKG shows sinus rhythm without notable ST or T-wave abnormalities and normal intervals. CBC, BMP, blood alcohol level notable for blood alcohol level 343. CT of the brain showed no acute abnormalities. Patient reassured and encouraged us stop drinking alcohol heavily and discharged home Diagnosis Primary Impression: Alcohol intoxication Qualified Code: F10.120 - Alcohol intoxication, uncomplicated Additional Impression: Generalized weakness Referrals: [facility] for appointment Additional Instructions: Seek outpatient management for your alcoholism Med/Other Pt SpecificInfo: No Change to Meds Disposition: 01 DISCHARGE HOME Condition: Stable Janna Dejesus MD Feb 22, 2017 13:25
[2017-02-22 13:43] LABS: BICARBONATE 27.7 MEQ/L (21.0-32.0); POTASSIUM 4.1 MEQ/L (3.5-5.1)
--- NOTE | 2017-02-22 13:52 | RADRPT ---
EXAM DATE/TIME: 02/22/2017 13:23 [facility] COMPARISON: No previous studies available for comparison. INDICATIONS : Found unresponsive today with left arm weakness; possible ETOH. RADIATION DOSE: 56.35 CTDIvol (mGy) MEDICAL HISTORY : Cerebrovascular disease. Carcinoma, oral cavity. SURGICAL HISTORY : None. ENCOUNTER: Initial ACUITY: 1 day PAIN SCALE: 4/10 LOCATION: cranial TECHNIQUE: Multiple contiguous axial images were obtained of the head. Using automated exposure control and adj ustment of the mA and/or kV according to patient size, radiation dose was kept as low as reasonably a chievable to obtain optimal diagnostic quality images. FINDINGS: Remote right MCA infarct with encephalomalacia noted. No signs of acute infarct, hemorrhage, or mass. No fractures are seen. CONCLUSION: No acute disease. Arnav Crabtree MD on February 22, 2017 at 13:49 Board Certified Radiologist. This report was verified electronically.
--- NOTE | 2017-02-23 11:58 | EKG ---
Date Performed: 02/22/2017 Time Performed: 12:50:31 PTAGE: 56 years EKG: Sinus rhythm NORMAL ECG PREVIOUS TRACING : 12/08/2016 04.45 DOCTOR: Goran Cheatham Interpretating Date/Time 02/23/2017 11:53:30
== END 2017-02-22 16:56 | disposition home or self-care (01) ==
LOC: NEPC 12:37 → NEDAMB 16:56
DX: F10.120 Alcohol abuse with intoxication, uncomplicated (principal); R53.1 Weakness; J45.909 Unspecified asthma, uncomplicated; F17.210 Nicotine dependence, cigarettes, uncomplicated; Z59.0 Homelessness
CPT/HCPCS: 70450; 80048; 80307; 85025; 93005

== ENCOUNTER 2017-04-07 16:52 | Emergency (ER) | payer SELFPAY ==
[2017-04-07 16:54] VITALS: BP 128/83; PULSE 106; RESP 20; TEMP 98.7; O2SAT 94
[2017-04-07 18:51] LABS: AUTOMATED NEUTROPHIL # 1.7 TH/MM3 (1.8-7.7); BASOPHIL # 0.1 TH/MM3 (0-0.2); BASOPHIL % 1.1 % (0.0-2.0); EOSINOPHIL # 0.2 TH/MM3 (0-0.4); EOSINOPHIL % 3.7 % (0.0-4.0); HEMATOCRIT 41.8 % (39.0-51.0); HEMO FLAGS DIFF FINAL; LYMPH % 54.7 % (9.0-44.0); MEAN CELL VOLUME 96.1 FL (80.0-100.0); MEAN CORPUSCULAR HEMOGLOBIN 32.2 PG (27.0-34.0); MEAN CORPUSCULAR HGB CONC 33.5 % (32.0-36.0); MONO % 10.5 % (0.0-8.0); PLATELET COUNT 142 TH/MM3 (150-450); RED BLOOD COUNT 4.34 MIL/MM3 (4.50-5.90); RED CELL DISTRIBUTION WIDTH 15.5 % (11.6-17.2); WHITE BLOOD COUNT 5.5 TH/MM3 (4.0-11.0)
[2017-04-07 19:16] LABS: ANION GAP 8 MEQ/L (5-15)
[2017-04-07 19:21] LABS: ALKALINE PHOSPHATASE 61 U/L (45-117); ALT (GPT) 56 U/L (12-78); AST (GOT) 75 U/L (15-37); BICARBONATE 26.4 MEQ/L (21.0-32.0); BLOOD UREA NITROGEN 4 MG/DL (7-18); CHLORIDE 106 MEQ/L (98-107); GLOMERULAR FILTRATION RATE 132 ML/MIN (>89); POTASSIUM 4.1 MEQ/L (3.5-5.1); SODIUM (NA) 140 MEQ/L (136-145); TOTAL BILIRUBIN ADULT 1.1 MG/DL (0.2-1.0)
[2017-04-07 19:24] LABS: BLOOD, URINE NEG (NEG); COMMENT (UR) CULT NOT INDICATED; CULTURE IF INDICATED CULT NOT INDICATED; GLUCOSE,URINE NEG (NEG); KETONE, URINE NEG (NEG); NITRITE,URINE NEG (NEG); PH, URINE 5.5 (5.0-8.5); SQUAMOUS EPITHELIAL CELL URINE <1 /hpf (0-5); URINE COLOR YELLOW (YELLW/STRAW)
[2017-04-07 19:57] VITALS: BP 99/65; PULSE 75; RESP 19; O2SAT 95
--- NOTE | 2017-04-07 22:41 | PD ---
HPI Chief Complaint: Psychiatric Symptoms Time Seen by Provider: 22:31 Travel History International Travel<30 days: No Contact w/Intl Traveler<30days: No Traveled to known affect area: No History of Present Illness HPI Patient's 56-year-old male sent into the emergency department for evaluation of suicidal ideations and depression. Patient reports taking 4-8 beers daily, he denies any previous suicide attempts. He states he has been depressed for the last several days, he denies any new life stressors. He reports that he is homeless and this does not bother him. He currently smokes daily tobacco but denies any illicit drug use. PFSH Past Medical History Asthma: Yes Autoimmune Disease: No Blood Disorders: No Anxiety: No Depression: Yes Heart Rhythm Problems: No Cancer: Yes (ORAL ) Cardiovascular Problems: No High Cholesterol: No Chemotherapy: No Chest Pain: No Congestive Heart Failure: No COPD: Yes Cerebrovascular Accident: Yes (PT REPORTS "6 STROKES") Diabetes: No Diminished Hearing: No Endocrine: No Gastrointestinal Disorders: Yes GERD: Yes Genitourinary: No Hypertension: No Immune Disorder: No Inguinal Hernia: Yes Implanted Vascular Access Dvce: No Musculoskeletal: No Neurologic: No Psychiatric: No Reproductive: No Respiratory: Yes Immunizations Current: Yes Myocardial Infarction: No Radiation Therapy: No Renal Failure: No Schizophrenia: No Seizures: No Sleep Apnea: No Thyroid Disease: No Past Surgical History Abdominal Surgery: Yes (R HERNIA 30 YEARS AGO) AICD: No Arteriovenous Shunt: No Insulin Pump: No Joint Replacement: No Neurologic Surgery: Yes (carpal tunnel surgery, early ) Oral Surgery: Yes (ALL TEETH REMOVED) Pacemaker: No Other Surgery: Yes (HERNIA REPAIR) Social History Alcohol Use: Yes (3-4 16OZ BEERS DAILY) Tobacco Use: Yes (2 ppd) Substance Use: Yes (ALCOHOL ABUSE) Allergies-Medications (Allergen,Severity, Reaction): Coded Allergies: Penicillin (Verified Allergy, Severe, UNKNOWN CHILDHOOD, 02/22/17) Reported Meds & Prescriptions Reported Meds & Active Scripts Active Lipitor (Atorvastatin Calcium) 20 Mg Tab 20 Mg PO HS Plavix (Clopidogrel Bisulfate) 75 Mg Tab 75 Mg PO DAILY Review of Systems ROS Limitations: Intoxication Except as stated in HPI: all other systems reviewed are Neg Psychiatric: Positive: Depression, Suicidal Ideations Physical Exam Narrative GENERAL: Thin, well-developed, alert male. Initially observed sleeping in no acute distress. Patient is easily arousable. SKIN: Focused skin assessment warm/dry. HEAD: Atraumatic. Normocephalic. EYES: Pupils equal and round. No scleral icterus. No injection or drainage. ENT: No nasal bleeding or discharge. Mucous membranes pink and moist. NECK: Trachea midline. No JVD. CARDIOVASCULAR: Regular rate and rhythm. No murmur appreciated. RESPIRATORY: No accessory muscle use. Clear to auscultation. Breath sounds equal bilaterally. GASTROINTESTINAL: Abdomen soft, non-tender, nondistended. Hepatic and splenic margins not palpable. MUSCULOSKELETAL: No obvious deformities. No clubbing. No cyanosis. No edema. NEUROLOGICAL: Awake and alert. No obvious cranial nerve deficits. Motor grossly within normal limits. Normal speech. PSYCHIATRIC: Appropriate mood and affect; insight and judgment normal. Data Data Last Documented VS Vital Signs Date Time Temp Pulse Resp B/P Pulse Ox O2 Delivery O2 Flow Rate FiO2 04/07/17 19:57 75 19 99/65 95 Room Air 04/07/17 16:54 98.7 Orders Complete Blood Count With Diff (04/07/17 18:32) Comprehensive Metabolic Panel (04/07/17 18:32) Psych Screen (04/07/17 18:32) Alcohol (Ethanol) (04/07/17 18:32) Urinalysis - C+S If Indicated (04/07/17 18:56) Labs Laboratory Tests Test 04/07/17 04/07/17 18:40 18:50 White Blood Count 5.5 TH/MM3 Red Blood Count 4.34 MIL/MM3 Hemoglobin 14.0 GM/DL Hematocrit 41.8 % Mean Corpuscular Volume 96.1 FL Mean Corpuscular Hemoglobin 32.2 PG Mean Corpuscular Hemoglobin 33.5 % Concent Red Cell Distribution Width 15.5 % Platelet Count 142 TH/MM3 Mean Platelet Volume 7.9 FL Neutrophils (%) (Auto) 30.0 % Lymphocytes (%) (Auto) 54.7 % Monocytes (%) (Auto) 10.5 % Eosinophils (%) (Auto) 3.7 % Basophils (%) (Auto) 1.1 % Neutrophils # (Auto) 1.7 TH/MM3 Lymphocytes # (Auto) 3.0 TH/MM3 Monocytes # (Auto) 0.6 TH/MM3 Eosinophils # (Auto) 0.2 TH/MM3 Basophils # (Auto) 0.1 TH/MM3 CBC Comment DIFF FINAL Differential Comment Sodium Level 140 MEQ/L Potassium Level 4.1 MEQ/L Chloride Level 106 MEQ/L Carbon Dioxide Level 26.4 MEQ/L Anion Gap 8 MEQ/L Blood Urea Nitrogen 4 MG/DL Creatinine 0.63 MG/DL Estimat Glomerular Filtration 132 ML/MIN Rate Random Glucose 70 MG/DL Calcium Level 8.1 MG/DL Total Bilirubin 1.1 MG/DL Aspartate Amino Transf 75 U/L (AST/SGOT) Alanine Aminotransferase 56 U/L (ALT/SGPT) Alkaline Phosphatase 61 U/L Total Protein 6.9 GM/DL Albumin 3.6 GM/DL Ethyl Alcohol Level 300 MG/DL Urine Color YELLOW Urine Turbidity CLEAR Urine pH 5.5 Urine Specific Brick 1.005 Urine Protein NEG mg/dL Urine Glucose (UA) NEG mg/dL Urine Ketones NEG mg/dL Urine Occult Blood NEG Urine Nitrite NEG Urine Bilirubin NEG Urine Urobilinogen 2.0 MG/DL Urine Leukocyte Esterase NEG Urine WBC 1 /hpf Urine Squamous Epithelial <1 /hpf Cells Microscopic Urinalysis Comment CULT NOT INDICATED MDM Medical Decision Making Medical Screen Exam Complete: Yes Emergency Medical Condition: Yes Interpretation(s) Laboratory Tests Test 04/07/17 04/07/17 18:40 18:50 White Blood Count 5.5 TH/MM3 Red Blood Count 4.34 MIL/MM3 Hemoglobin 14.0 GM/DL Hematocrit 41.8 % Mean Corpuscular Volume 96.1 FL Mean Corpuscular Hemoglobin 32.2 PG Mean Corpuscular Hemoglobin 33.5 % Concent Red Cell Distribution Width 15.5 % Platelet Count 142 TH/MM3 Mean Platelet Volume 7.9 FL Neutrophils (%) (Auto) 30.0 % Lymphocytes (%) (Auto) 54.7 % Monocytes (%) (Auto) 10.5 % Eosinophils (%) (Auto) 3.7 % Basophils (%) (Auto) 1.1 % Neutrophils # (Auto) 1.7 TH/MM3 Lymphocytes # (Auto) 3.0 TH/MM3 Monocytes # (Auto) 0.6 TH/MM3 Eosinophils # (Auto) 0.2 TH/MM3 Basophils # (Auto) 0.1 TH/MM3 CBC Comment DIFF FINAL Differential Comment Sodium Level 140 MEQ/L Potassium Level 4.1 MEQ/L Chloride Level 106 MEQ/L Carbon Dioxide Level 26.4 MEQ/L Anion Gap 8 MEQ/L Blood Urea Nitrogen 4 MG/DL Creatinine 0.63 MG/DL Estimat Glomerular Filtration 132 ML/MIN Rate Random Glucose 70 MG/DL Calcium Level 8.1 MG/DL Total Bilirubin 1.1 MG/DL Aspartate Amino Transf 75 U/L (AST/SGOT) Alanine Aminotransferase 56 U/L (ALT/SGPT) Alkaline Phosphatase 61 U/L Total Protein 6.9 GM/DL Albumin 3.6 GM/DL Ethyl Alcohol Level 300 MG/DL Urine Color YELLOW Urine Turbidity CLEAR Urine pH 5.5 Urine Specific Brick 1.005 Urine Protein NEG mg/dL Urine Glucose (UA) NEG mg/dL Urine Ketones NEG mg/dL Urine Occult Blood NEG Urine Nitrite NEG Urine Bilirubin NEG Urine Urobilinogen 2.0 MG/DL Urine Leukocyte Esterase NEG Urine WBC 1 /hpf Urine Squamous Epithelial <1 /hpf Cells Microscopic Urinalysis Comment CULT NOT INDICATED Vital Signs Date Time Temp Pulse Resp B/P Pulse Ox O2 Delivery O2 Flow Rate FiO2 04/07/17 19:57 75 19 99/65 95 Room Air 04/07/17 16:54 98.7 106 20 128/83 94 Room Air Differential Diagnosis Depression versus suicidal ideations versus intoxication versus mood disorder versus other Narrative Course Patient is a 56-year-old male presenting voluntarily to the emergency department due to depression and suicidal ideations. Labs ordered and pending. Patient evaluated in the psychiatric unit. He is cooperative, answering questions appropriately. Patient is resting comfortably in no acute distress. His vital signs are stable. CBC is unremarkable Chemistries unremarkable Alcohol level is 300 Urinalysis is unremarkable Patient is medically cleared for psychiatric evaluation at this time. Process was discussed with patient. Diagnosis Primary Impression: Medical clearance for psychiatric admission Additional Impressions: Alcohol intoxication Qualified Code: F10.920 - Alcohol intoxication, uncomplicated Depression Qualified Code: F32.9 - Depression, unspecified depression type Condition: Stable Yoanna Burnham April 07, 2017 22:41
[2017-04-07 22:42] VITALS: BP 103/65; PULSE 74; RESP 18; O2SAT 97
[2017-04-08 02:20] VITALS: BP 106/68; PULSE 68; RESP 18; O2SAT 99
[2017-04-08 06:16] VITALS: BP_SYST 106; BP_SYST 116; BP_DIAS 52; BP_DIAS 62; PULSE 68; PULSE 81; RESP 18; TEMP 98.4; O2SAT 98; O2SAT 99
[2017-04-08] MEDS ORDERED: VENTAER INH (06:28)
[2017-04-08 13:44] VITALS: BP 122/68; TEMP 98
== END 2017-04-08 13:47 ==
LOC: NEPJ 16:52
DX: Z02.89 Encounter for other administrative examinations (principal); F10.920 Alcohol use, unspecified with intoxication, uncomplicated; F32.9 Major depressive disorder, single episode, unspecified; R45.851 Suicidal ideations; F17.200 Nicotine dependence, unspecified, uncomplicated; Z59.0 Homelessness; Z87.09 Personal history of other diseases of the respiratory system; Z86.59 Personal history of other mental and behavioral disorders; Z86.79 Personal history of other diseases of the circulatory system; Z87.19 Personal history of other diseases of the digestive system
CPT/HCPCS: 80053; 80307; 81001; 85025; 99285

== ENCOUNTER 2017-07-18 20:37 | Emergency (ER) | payer OTHER ==
[~2017-07-18] VITALS: Ht 185.4 cm; Wt 64.0 kg
[~2017-07-18 20:37] MED LIST changes: +VENTAER INH
[2017-07-18 20:46] VITALS: BP 130/78; PULSE 87; RESP 16; TEMP 98.1; O2SAT 95
[2017-07-18] MEDS ORDERED: TRAZ1TAB45 PO (20:48)
[2017-07-18 21:36] LABS: AUTOMATED NEUTROPHIL # 4.3 TH/MM3 (1.8-7.7); BASOPHIL # 0.1 TH/MM3 (0-0.2); BASOPHIL % 1.2 % (0.0-2.0); EOSINOPHIL # 0.1 TH/MM3 (0-0.4); EOSINOPHIL % 1.5 % (0.0-4.0); HEMATOCRIT 42.7 % (39.0-51.0); HEMO FLAGS DIFF FINAL; LYMPHOCYTE # 2.9 TH/MM3 (1.0-4.8); MEAN CELL VOLUME 98.4 FL (80.0-100.0); MEAN CORPUSCULAR HEMOGLOBIN 34.3 PG (27.0-34.0); MEAN CORPUSCULAR HGB CONC 34.8 % (32.0-36.0); MONO % 12.6 % (0.0-8.0); NEUT % 50.7 % (16.0-70.0); PLATELET COUNT 282 TH/MM3 (150-450); RED BLOOD COUNT 4.34 MIL/MM3 (4.50-5.90); RED CELL DISTRIBUTION WIDTH 14.7 % (11.6-17.2); WHITE BLOOD COUNT 8.4 TH/MM3 (4.0-11.0)
--- NOTE | 2017-07-18 21:49 | PD ---
HPI Chief Complaint: Psychiatric Symptoms Time Seen by Provider: 21:03 Travel History International Travel<30 days: No Contact w/Intl Traveler<30days: No Traveled to known affect area: No History of Present Illness HPI This is a 56 year old male who has a history of homelessness and alcoholism who presents to the emergency department with alcohol intoxication and suicidal ideation. The patient reports that he has thought about putting a gun to his head. His symptoms are constant, moderate severity. He reports that he has a history of depression and has been out of his psychiatric medications for one week. He is supposed to be on trazodone and neurontin. PFSH Past Medical History Asthma: Yes Autoimmune Disease: No Blood Disorders: No Anxiety: No Depression: Yes Heart Rhythm Problems: No Cancer: Yes (ORAL ) Cardiovascular Problems: No High Cholesterol: No Chemotherapy: No Chest Pain: No Congestive Heart Failure: No COPD: Yes Cerebrovascular Accident: Yes (PT REPORTS "6 STROKES") Diabetes: No Diminished Hearing: No Endocrine: No Gastrointestinal Disorders: Yes GERD: Yes Genitourinary: No Hypertension: No Immune Disorder: No Inguinal Hernia: Yes Implanted Vascular Access Dvce: No Musculoskeletal: No Neurologic: No Psychiatric: No Reproductive: No Respiratory: Yes Immunizations Current: Yes Myocardial Infarction: No Radiation Therapy: No Renal Failure: No Schizophrenia: No Seizures: No Sleep Apnea: No Thyroid Disease: No ?: Not Past Surgical History Abdominal Surgery: Yes (R HERNIA 30 YEARS AGO) AICD: No Arteriovenous Shunt: No Insulin Pump: No Joint Replacement: No Neurologic Surgery: Yes (carpal tunnel surgery, early ) Oral Surgery: Yes (ALL TEETH REMOVED) Pacemaker: No Other Surgery: Yes (HERNIA REPAIR) Social History Alcohol Use: Yes (Daily) Tobacco Use: Yes (1 - 2 PPD) Substance Use: Yes (Hx. polysubstance abuse) Allergies-Medications (Allergen,Severity, Reaction): Coded Allergies: penicillin G (Verified Allergy, Severe, UNKNOWN CHILDHOOD, 07/18/17) Reported Meds & Prescriptions Reported Meds & Active Scripts Active Lipitor (Atorvastatin Calcium) 20 Mg Tab 20 Mg PO HS Plavix (Clopidogrel Bisulfate) 75 Mg Tab 75 Mg PO DAILY Reported Trazodone (Trazodone HCl) 150 Mg Tablet 150 Mg PO HS Ventolin Hfa 18 GM Inh (Albuterol Sulfate) 90 Mcg/Act Aer 1 Puff INH Q4H PRN Review of Systems Except as stated in HPI: all other systems reviewed are Neg Physical Exam Narrative GENERAL:Disheveled, smells of alcohol SKIN: Focused skin assessment warm and dry. HEAD: Atraumatic. Normocephalic. EYES: Pupils equal and round. No injection or drainage. ENT: Moist mucous membranes NECK: Trachea midline. CARDIOVASCULAR: Regular rate and rhythm. No murmur appreciated. RESPIRATORY: Diffuse wheezing, no accessory muscle use or increased work of breathing GASTROINTESTINAL: Abdomen soft, non-tender, nondistended. MUSCULOSKELETAL: No obvious deformities. NEUROLOGICAL: Awake and alert. No obvious cranial nerve deficits. Moving all extremities. PSYCHIATRIC: Appropriate mood and affect; insight and judgment normal. Data Data Last Documented VS Vital Signs Date Time Temp Pulse Resp B/P (MAP) Pulse Ox O2 Delivery O2 Flow Rate FiO2 07/18/17 20:46 98.1 87 16 130/78 (95) 95 Orders Orders Complete Blood Count With Diff (07/18/17 21:03) Comprehensive Metabolic Panel (07/18/17 21:03) Alcohol (Ethanol) (07/18/17 21:03) Drug Screen, Random Urine (07/18/17 21:03) Ct Brain W/O Iv Contrast(Rout) (07/18/17 ) Psych Screen (07/18/17 23:51) Labs Laboratory Tests Test 07/18/17 20:45 07/18/17 21:15 Urine Opiates Screen NEG Urine Barbiturates Screen NEG Urine Amphetamines Screen NEG Urine Benzodiazepines Screen NEG Urine Cocaine Screen NEG Urine Cannabinoids Screen NEG White Blood Count 8.4 TH/MM3 Red Blood Count 4.34 MIL/MM3 Hemoglobin 14.9 GM/DL Hematocrit 42.7 % Mean Corpuscular Volume 98.4 FL Mean Corpuscular Hemoglobin 34.3 PG Mean Corpuscular Hemoglobin Concent 34.8 % Red Cell Distribution Width 14.7 % Platelet Count 282 TH/MM3 Mean Platelet Volume 7.5 FL Neutrophils (%) (Auto) 50.7 % Lymphocytes (%) (Auto) 34.0 % Monocytes (%) (Auto) 12.6 % Eosinophils (%) (Auto) 1.5 % Basophils (%) (Auto) 1.2 % Neutrophils # (Auto) 4.3 TH/MM3 Lymphocytes # (Auto) 2.9 TH/MM3 Monocytes # (Auto) 1.1 TH/MM3 Eosinophils # (Auto) 0.1 TH/MM3 Basophils # (Auto) 0.1 TH/MM3 CBC Comment DIFF FINAL Differential Comment Blood Urea Nitrogen 8 MG/DL Creatinine 0.49 MG/DL Random Glucose 83 MG/DL Total Protein 7.5 GM/DL Albumin 3.4 GM/DL Calcium Level 8.7 MG/DL Alkaline Phosphatase 70 U/L Aspartate Amino Transf (AST/SGOT) 12 U/L Alanine Aminotransferase (ALT/SGPT) 16 U/L Total Bilirubin 0.6 MG/DL Sodium Level 139 MEQ/L Potassium Level 3.5 MEQ/L Chloride Level 104 MEQ/L Carbon Dioxide Level 24.3 MEQ/L Anion Gap 11 MEQ/L Estimat Glomerular Filtration Rate 176 ML/MIN Ethyl Alcohol Level 186 MG/DL [facility] Medical Decision Making Medical Screen Exam Complete: Yes Emergency Medical Condition: Yes Interpretation(s) afebrile, no tachycardia, normotensive No leukocytosis Electrolytes are reassuring Alcohol is 186 Last [address] 07/18/17 0000 Signed Impressions: Service Date/Time: Tuesday, July 18, 2017 23:29 - CONCLUSION: 1. Stable old right MCA territory infarct. 2. No acute intracranial abnormality. Timur Cummins MD Differential Diagnosis Alcohol intoxication, alcohol-induced mood disorder, depression, bipolar disorder Narrative Course This is a 56-year-old male who presents to the emergency department with alcohol intoxication reporting depression and suicidal ideation. He says he's been hospitalized multiple times in the past for depression. On exam he appears intoxicated. He also reported a head injury and is on Plavix. His CT of the head was reassuring. Labs are all unremarkable. Patient will be medically cleared for psychiatric evaluation. Elise Forde MD Jul 18, 2017 21:49
[2017-07-18 21:51] LABS: ANION GAP 11 MEQ/L (5-15); AST (GOT) 12 U/L (15-37); BICARBONATE 24.3 MEQ/L (21.0-32.0); BLOOD UREA NITROGEN 8 MG/DL (7-18); CHLORIDE 104 MEQ/L (98-107); GLOMERULAR FILTRATION RATE 176 ML/MIN (>89); POTASSIUM 3.5 MEQ/L (3.5-5.1); SODIUM (NA) 139 MEQ/L (136-145)
[2017-07-18 21:52] LABS: ALT (GPT) 16 U/L (12-78)
[2017-07-18 21:54] LABS: ALKALINE PHOSPHATASE 70 U/L (45-117); TOTAL BILIRUBIN ADULT 0.6 MG/DL (0.2-1.0)
[2017-07-18 22:08] LABS: ALCOHOL 186 MG/DL (0-5)
--- NOTE | 2017-07-19 00:30 | RADRPT ---
EXAM DATE/TIME: 07/18/2017 23:29 [facility] COMPARISON: CT BRAIN W/O CONTRAST, February 22, 2017, 13:23. INDICATIONS : Cephalgia. RADIATION DOSE: 49.48 CTDIvol (mGy) MEDICAL HISTORY : Carcinoma, oral cavity. SURGICAL HISTORY : None. ENCOUNTER: Initial ACUITY: 1 day PAIN SCALE: 5/10 LOCATION: cranial TECHNIQUE: Multiple contiguous axial images were obtained of the head. Using automated exposure control and adj ustment of the mA and/or kV according to patient size, radiation dose was kept as low as reasonably a chievable to obtain optimal diagnostic quality images. DICOM format image data is available electro nically for review and comparison. FINDINGS: CEREBRUM: Stable mild and subtle malacia defect in the right parietotemporal mid convexities. Mild diffuse cere bral atrophy. The ventricles are normal for degree of atrophy.. No evidence of midline shift, mass l esion, hemorrhage or acute infarction. No extra-axial fluid collections are seen. POSTERIOR FOSSA: The cerebellum and brainstem are intact. The 4th ventricle is midline. The cerebellopontine angle i s unremarkable. EXTRACRANIAL: The visualized portion of the orbits is intact. SKULL: The calvaria is intact. No evidence of skull fracture. CONCLUSION: 1. Stable old right MCA territory infarct. 2. No acute intracranial abnormality. Timur Cummins MD on July 19, 2017 at 0:27 Board Certified Radiologist. This report was verified electronically.
[2017-07-19 05:00] VITALS: BP 134/70; PULSE 87; RESP 14; O2SAT 96
--- NOTE | 2017-07-19 12:38 | PD ---
History of Present Illness Chief Complaint: Psychiatric Symptoms Time Seen by Provider: 12:30 Travel History International Travel<30 Days: No Contact w/Intl Traveler<30days: No Known affected area: No Legal Status Legal Status: Jaime Act Jaime Act Signed By: Nathan Tijerina Jaime Act Comment: 2016 @ 2022 History of Present Illness: 56-year-old male who is known to the psychiatric staff here in the emergency department, presents under a Jaime act for suicidal ideation while consuming alcohol. Patient is a multiyear alcoholic and has had frequent suicidal representations in the past. At the present time, the patient denies suicidal or homicidal ideation, plan or intent. He wants to go to [facility] for detox and rehabilitation. He recognizes his main problem is alcoholism. He has no psychotic symptoms. His cognition is intact he is deemed to be competent to make decisions on his own behalf. PFSH Past Medical History Asthma: Yes Autoimmune Disease: No Blood Disorders: No Anxiety: No Depression: Yes Heart Rhythm Problems: No Cancer: Yes (ORAL ) Cardiovascular Problems: No High Cholesterol: No Chemotherapy: No Chest Pain: No Congestive Heart Failure: No COPD: Yes Cerebrovascular Accident: Yes (PT REPORTS "6 STROKES") Diabetes: No Diminished Hearing: No Endocrine: No Gastrointestinal Disorders: Yes GERD: Yes Genitourinary: No Hypertension: No Immune Disorder: No Inguinal Hernia: Yes Implanted Vascular Access Dvce: No Musculoskeletal: No Neurologic: No Psychiatric: No Reproductive: No Respiratory: Yes Immunizations Current: Yes Myocardial Infarction: No Radiation Therapy: No Renal Failure: No Schizophrenia: No Seizures: No Sleep Apnea: No Thyroid Disease: No ?: Not Past Surgical History Abdominal Surgery: Yes (R HERNIA 30 YEARS AGO) AICD: No Arteriovenous Shunt: No Insulin Pump: No Joint Replacement: No Neurologic Surgery: Yes (carpal tunnel surgery, early ) Oral Surgery: Yes (ALL TEETH REMOVED) Pacemaker: No Other Surgery: Yes (HERNIA REPAIR) Psychiatric History Psychiatric History Hx Psychiatric Treatment: HX ALCOHOL ABUSE HX DEPRESSION WITH SUICIDAL IDEATIONS. History of Inpatient Treatment: Yes Guns or firearms in home: No Social History Hx Alcohol Use: Yes (Daily) Hx Tobacco Use: Yes (1 - 2 PPD) Hx Substance Use: Yes (Hx. polysubstance abuse) Substance Use Type: Alcohol Other Substances Used: 3-4 16OZ BEERS DAILY Hx of Substance Use Treatment: Yes Allergies-Medications (Allergen,Severity, Reaction): Coded Allergies: penicillin G (Verified Allergy, Severe, UNKNOWN CHILDHOOD, 07/18/17) Reported Meds & Prescriptions Reported Meds & Active Scripts Active Lipitor (Atorvastatin Calcium) 20 Mg Tab 20 Mg PO HS Plavix (Clopidogrel Bisulfate) 75 Mg Tab 75 Mg PO DAILY Reported Trazodone (Trazodone HCl) 150 Mg Tablet 150 Mg PO HS Ventolin Hfa 18 GM Inh (Albuterol Sulfate) 90 Mcg/Act Aer 1 Puff INH Q4H PRN Review of Systems Except as stated in HPI: all other systems reviewed are Neg Exam Alert: Yes F[place]: Place, Date, Situation Mood: Calm Affect: Appropriate Speech: Clear, Logical Eye Contact: Normal Memory Intact: Immediate, Recent, Remote Insight/Judgement Adequate MDM Medical Decision Making Medical Record Reviewed: Yes Assessment/Plan Patient interviewed at bedside and case discussed with nurseTrini. Patient's medical record was reviewed. Patient has a long history of alcohol abuse and this continues to be is paramount issue. As this facility is not license for detox and rehabilitation and the patient wants to go to [facility], he does not qualify for Jaime act. He also does not qualify for inpatient psychiatric hospitalization. He is being referred to [facility] for further treatment. Orders Orders Complete Blood Count With Diff (07/18/17 21:03) Comprehensive Metabolic Panel (07/18/17 21:03) Alcohol (Ethanol) (07/18/17 21:03) Drug Screen, Random Urine (07/18/17 21:03) Ct Brain W/O Iv Contrast(Rout) (07/18/17 ) Psych Screen (07/18/17 23:51) Results Vital Signs Date Time Temp Pulse Resp B/P (MAP) Pulse Ox O2 Delivery O2 Flow Rate FiO2 07/19/17 05:00 87 14 134/70 (91) 96 Room Air 07/18/17 20:46 98.1 87 16 130/78 (95) 95 Laboratory Tests Test 07/18/17 20:45 07/18/17 21:15 Urine Opiates Screen NEG Urine Barbiturates Screen NEG Urine Amphetamines Screen NEG Urine Benzodiazepines Screen NEG Urine Cocaine Screen NEG Urine Cannabinoids Screen NEG White Blood Count 8.4 Red Blood Count 4.34 Hemoglobin 14.9 Hematocrit 42.7 Mean Corpuscular Volume 98.4 Mean Corpuscular Hemoglobin 34.3 Mean Corpuscular Hemoglobin Concent 34.8 Red Cell Distribution Width 14.7 Platelet Count 282 Mean Platelet Volume 7.5 Neutrophils (%) (Auto) 50.7 Lymphocytes (%) (Auto) 34.0 Monocytes (%) (Auto) 12.6 Eosinophils (%) (Auto) 1.5 Basophils (%) (Auto) 1.2 Neutrophils # (Auto) 4.3 Lymphocytes # (Auto) 2.9 Monocytes # (Auto) 1.1 Eosinophils # (Auto) 0.1 Basophils # (Auto) 0.1 CBC Comment DIFF FINAL Differential Comment Blood Urea Nitrogen 8 Creatinine 0.49 Random Glucose 83 Total Protein 7.5 Albumin 3.4 Calcium Level 8.7 Alkaline Phosphatase 70 Aspartate Amino Transf (AST/SGOT) 12 Alanine Aminotransferase (ALT/SGPT) 16 Total Bilirubin 0.6 Sodium Level 139 Potassium Level 3.5 Chloride Level 104 Carbon Dioxide Level 24.3 Anion Gap 11 Estimat Glomerular Filtration Rate 176 Ethyl Alcohol Level 186 Diagnosis Primary Impression: Alcohol abuse Justo Souza MD Jul 19, 2017 12:38
[2017-07-19 12:46] VITALS: BP 133/89; PULSE 79; RESP 18; O2SAT 98
--- NOTE | 2017-07-19 13:47 | PD ---
Physical Exam Time Seen by Provider: 13:[address] Souza has evaluated this patient and lifted the Jaime act and the patient will be discharged. Data Data Last Documented VS Vital Signs Date Time Temp Pulse Resp B/P (MAP) Pulse Ox O2 Delivery O2 Flow Rate FiO2 07/19/17 12:46 79 18 133/89 (104) 98 Room Air 07/18/17 20:46 98.1 Orders Orders Complete Blood Count With Diff (07/18/17 21:03) Comprehensive Metabolic Panel (07/18/17 21:03) Alcohol (Ethanol) (07/18/17 21:03) Drug Screen, Random Urine (07/18/17 21:03) Ct Brain W/O Iv Contrast(Rout) (07/18/17 ) Psych Screen (07/18/17 23:51) Diet Regular Basic (07/19/17 Dinner) Labs Laboratory Tests Test 07/18/17 20:45 07/18/17 21:15 Urine Opiates Screen NEG Urine Barbiturates Screen NEG Urine Amphetamines Screen NEG Urine Benzodiazepines Screen NEG Urine Cocaine Screen NEG Urine Cannabinoids Screen NEG White Blood Count 8.4 TH/MM3 Red Blood Count 4.34 MIL/MM3 Hemoglobin 14.9 GM/DL Hematocrit 42.7 % Mean Corpuscular Volume 98.4 FL Mean Corpuscular Hemoglobin 34.3 PG Mean Corpuscular Hemoglobin Concent 34.8 % Red Cell Distribution Width 14.7 % Platelet Count 282 TH/MM3 Mean Platelet Volume 7.5 FL Neutrophils (%) (Auto) 50.7 % Lymphocytes (%) (Auto) 34.0 % Monocytes (%) (Auto) 12.6 % Eosinophils (%) (Auto) 1.5 % Basophils (%) (Auto) 1.2 % Neutrophils # (Auto) 4.3 TH/MM3 Lymphocytes # (Auto) 2.9 TH/MM3 Monocytes # (Auto) 1.1 TH/MM3 Eosinophils # (Auto) 0.1 TH/MM3 Basophils # (Auto) 0.1 TH/MM3 CBC Comment DIFF FINAL Differential Comment Blood Urea Nitrogen 8 MG/DL Creatinine 0.49 MG/DL Random Glucose 83 MG/DL Total Protein 7.5 GM/DL Albumin 3.4 GM/DL Calcium Level 8.7 MG/DL Alkaline Phosphatase 70 U/L Aspartate Amino Transf (AST/SGOT) 12 U/L Alanine Aminotransferase (ALT/SGPT) 16 U/L Total Bilirubin 0.6 MG/DL Sodium Level 139 MEQ/L Potassium Level 3.5 MEQ/L Chloride Level 104 MEQ/L Carbon Dioxide Level 24.3 MEQ/L Anion Gap 11 MEQ/L Estimat Glomerular Filtration Rate 176 ML/MIN Ethyl Alcohol Level 186 MG/DL MDM Supervised Visit with SHEEBA: No Narrative Course Dr. Souza has evaluated this patient and lifted the Jaime act and the patient will be discharged. Patient is well-known to the ER and psych department. He is homeless and when he becomes stressed she reports suicidal ideations. The nurse reports that the patient is now sober and denies suicidal or homicidal ideations. He is being provided bus passes to [facility] for follow-up. The patient contracts safety to Dr. Souza and the nurse. He says he will follow -up with [facility]. Patient is medically stable for discharge. Diagnosis Primary Impression: Alcohol abuse Ref[facility] Patient Instructions: Abuse of Alcohol (ED), Alcohol Dependence (ED), Alcohol Intoxication (ED), General Instructions, Mood Disorders (ED) Additional Instruction: Contract safety to your self and others Follow-up with psychiatry Follow-up with primary care provider Follow-up with [facility] Return to the emergency department immediately with worsening of symptoms Med/Other Pt SpecificInfo: No Change to Meds, No Meds Exist/No RX given Disposition: 01 DISCHARGE HOME Condition: Stable Niyah Michel Jul 19, 2017 13:46
[2017-07-19 13:53] VITALS: BP 133/89; TEMP 98
== END 2017-07-19 13:57 | disposition home or self-care (01) ==
LOC: NEPD 20:37 → NEPJ 07-19 13:57
DX: F10.20 Alcohol dependence, uncomplicated (principal); R51 Headache; Y90.6 Blood alcohol level of 120-199 mg/100 ml; Z59.0 Homelessness
CPT/HCPCS: 70450; 80053; 80307; 85025; 99284

== ENCOUNTER 2017-09-03 01:47 | Emergency (ER) | payer SELFPAY ==
[~2017-09-03] VITALS: Ht 185.4 cm; Wt 60.0 kg
[~2017-09-03 01:47] MED LIST changes: +TRAZ1TAB45 PO
[2017-09-03 01:50] VITALS: BP 98/68; PULSE 77; RESP 16; TEMP 98.1; O2SAT 98
[2017-09-03] MEDS ORDERED: ERYTHROMYCIN 0.5% OPTH OINT 3.5 GM TUBO RIGHT EYE ONE (03:15)
[2017-09-03] MEDS ORDERED: ERYTOIN10 RIGHT EYE (03:30)
--- NOTE | 2017-09-03 03:30 | PD ---
HPI Chief Complaint: Eye Problems/Injury Time Seen by Provider: 03:06 Travel History International Travel<30 days: No Contact w/Intl Traveler<30days: No Traveled to known affect area: No History of Present Illness HPI Patient is a 56-year-old male that presents emergency Department for evaluation of a foreign body sensation in his right eye. Patient states that he feels as if there is sand in there. He reports that it's irritating, he denies any significant pain. He states it's hard to open his eyelid. There are no alleviating factors, pain is exacerbated with movement of his eye due to irritation. PFSH Past Medical History Asthma: Yes Autoimmune Disease: No Blood Disorders: No Anxiety: No Depression: Yes Heart Rhythm Problems: No Cancer: Yes (ORAL ) Cardiovascular Problems: No High Cholesterol: No Chemotherapy: No Chest Pain: No Congestive Heart Failure: No COPD: Yes Cerebrovascular Accident: Yes (PT REPORTS "6 STROKES") Diabetes: No Diminished Hearing: No Endocrine: No Gastrointestinal Disorders: Yes GERD: Yes Genitourinary: No Hypertension: No Immune Disorder: No Inguinal Hernia: Yes Implanted Vascular Access Dvce: No Musculoskeletal: No Neurologic: No Psychiatric: No Reproductive: No Respiratory: Yes Immunizations Current: Yes Myocardial Infarction: No Radiation Therapy: No Renal Failure: No Schizophrenia: No Seizures: No Sleep Apnea: No Thyroid Disease: No Past Surgical History Abdominal Surgery: Yes (R HERNIA 30 YEARS AGO) AICD: No Arteriovenous Shunt: No Insulin Pump: No Joint Replacement: No Neurologic Surgery: Yes (carpal tunnel surgery, early ) Oral Surgery: Yes (ALL TEETH REMOVED) Pacemaker: No Other Surgery: Yes (HERNIA REPAIR) Social History Alcohol Use: Yes (Daily) Tobacco Use: Yes (1 - 2 PPD) Substance Use: Yes (Hx. polysubstance abuse) Allergies-Medications (Allergen,Severity, Reaction): Coded Allergies: penicillin G (Verified Allergy, Severe, UNKNOWN CHILDHOOD, 09/03/17) Reported Meds & Prescriptions Reported Meds & Active Scripts Active Erythromycin Opth Oint 5 Mg/Gm Oint 1 Applic RIGHT EYE QID Lipitor (Atorvastatin Calcium) 20 Mg Tab 20 Mg PO HS Plavix (Clopidogrel Bisulfate) 75 Mg Tab 75 Mg PO DAILY Reported Trazodone (Trazodone HCl) 150 Mg Tablet 150 Mg PO HS Ventolin Hfa 18 GM Inh (Albuterol Sulfate) 90 Mcg/Act Aer 1 Puff INH Q4H PRN Review of Systems Except as stated in HPI: all other systems reviewed are Neg Eyes: Positive: Foreign Body Sensation Physical Exam Narrative GENERAL: Alert, disheveled, male. Resting in no acute distress. SKIN: Warm and dry. HEAD: Normocephalic. EYES: No scleral icterus. No injection or drainage. Fluorescein eye exam revealed a corneal abrasion at the 2 o'clock position. Extraocular movements are intact. NECK: Supple, trachea midline. No JVD or lymphadenopathy. CARDIOVASCULAR: Regular rate and rhythm without murmurs, gallops, or rubs. RESPIRATORY: Breath sounds equal bilaterally. No accessory muscle use. GASTROINTESTINAL: Abdomen soft, non-tender, nondistended. MUSCULOSKELETAL: No cyanosis, or edema. BACK: Nontender without obvious deformity. No CVA tenderness. Data Data Last Documented VS Vital Signs Date Time Temp Pulse Resp B/P (MAP) Pulse Ox O2 Delivery O2 Flow Rate FiO2 09/03/17 03:45 09/03/17 01:50 98.1 77 16 98 Room Air Orders Orders Eye Irrigation (09/03/17 01:56) Erythromycin 0.5% Opth Oint (Ilotycin 0. (09/03/17 03:15) Ed Discharge Order (09/03/17 03:31) MDM Medical Decision Making Medical Screen Exam Complete: Yes Emergency Medical Condition: Yes Interpretation(s) Vital Signs Date Time Temp Pulse Resp B/P (MAP) Pulse Ox O2 Delivery O2 Flow Rate FiO2 09/03/17 03:45 09/03/17 01:50 98.1 77 16 98/68 (78) 98 Room Air Differential Diagnosis Corneal abrasion versus retained foreign body versus iritis versus episcleritis versus blepharitis versus other Narrative Course Patient presented complaining of a foreign body sensation in his right eye. Eye irrigation was performed with a Narayan lens. Fluorescein eye exam revealed a corneal abrasion, patient was given erythromycin for lubrication and comfort. First dose was given the emergency Department. Patient was encouraged to return to emergency department follow-up with an industrial truck mechanic for any new or worsening symptoms. He verbalized understanding of instructions. Patient is stable for discharge. Diagnosis Primary Impression: Corneal abrasion Qualified Codes: S05.01XA - Injury of conjunctiva and corneal abrasion without foreign body, right eye, initial encounter Referrals: Medical Records Specialist Primary Care Physician Patient Instructions: Corneal Abrasion (ED), General Instructions Additional Instructions: Use medication as directed Apply warm compress to affected eye as needed Return to emergency department new or worsening symptoms Follow-up with industrial truck mechanic Med/Other Pt SpecificInfo: Prescription(s) given Scripts Erythromycin Opth Oint (Erythromycin Opth Oint) 5 Mg/Gm Oint 1 APPLIC RIGHT EYE QID for Infection, #1 TUBE 0 Refills Prov: Yoanna Burnham 09/03/17 Disposition: 01 DISCHARGE HOME Condition: Stable Yoanna Burnham Sep 03, 2017 03:30
== END 2017-09-03 04:04 | disposition home or self-care (01) ==
LOC: NEPD 01:47
DX: S05.01XA Injury of conjunctiva and corneal abrasion without foreign body, right eye, initial encounter (principal); X58.XXXA Exposure to other specified factors, initial encounter
CPT/HCPCS: 99283

== ENCOUNTER 2018-01-18 19:37 | Emergency (ER) | payer OTHER ==
[~2018-01-18] VITALS: Ht 182.9 cm; Wt 68.2 kg
[~2018-01-18 19:37] MED LIST changes: +ERYTOIN10 RIGHT EYE; +TRAZ1TAB14 PO; -TRAZ1TAB45 PO
[2018-01-18 19:59] VITALS: BP 104/72; PULSE 78; RESP 18; TEMP 98.7; O2SAT 97
[2018-01-18 22:10] LABS: AUTOMATED NEUTROPHIL # 1.5 TH/MM3 (1.8-7.7); BASOPHIL # 0.1 TH/MM3 (0-0.2); BASOPHIL % 1.3 % (0.0-2.0); EOSINOPHIL # 0.2 TH/MM3 (0-0.4); EOSINOPHIL % 4.8 % (0.0-4.0); HEMATOCRIT 43.3 % (39.0-51.0); HEMOGLOBIN 14.9 GM/DL (13.0-17.0); LYMPH % 50.3 % (9.0-44.0); LYMPHOCYTE # 2.2 TH/MM3 (1.0-4.8); MEAN CORPUSCULAR HEMOGLOBIN 34.1 PG (27.0-34.0); MEAN CORPUSCULAR HGB CONC 34.4 % (32.0-36.0); MEAN PLATELET VOLUME 8.1 FL (7.0-11.0); MONO % 9.5 % (0.0-8.0); MONOCYTE # 0.4 TH/MM3 (0-0.9); NEUT % 34.1 % (16.0-70.0); PLATELET COUNT 151 TH/MM3 (150-450); RED BLOOD COUNT 4.37 MIL/MM3 (4.50-5.90); RED CELL DISTRIBUTION WIDTH 15.6 % (11.6-17.2); WHITE BLOOD COUNT 4.4 TH/MM3 (4.0-11.0)
[2018-01-18 22:42] LABS: ALBUMIN 3.9 GM/DL (3.4-5.0); ALT (GPT) 149 U/L (12-78); AST (GOT) 195 U/L (15-37); BICARBONATE 29.1 MEQ/L (21.0-32.0); BLOOD UREA NITROGEN 5 MG/DL (7-18); CALCIUM 8.1 MG/DL (8.5-10.1); CHLORIDE 104 MEQ/L (98-107); CREATININE 0.78 MG/DL (0.60-1.30); GLOMERULAR FILTRATION RATE 103 ML/MIN (>89); GLUCOSE,RANDOM 86 MG/DL (74-106); SODIUM (NA) 141 MEQ/L (136-145)
[2018-01-18 22:51] LABS: ALKALINE PHOSPHATASE 68 U/L (45-117); TOTAL BILIRUBIN ADULT 0.8 MG/DL (0.2-1.0)
--- NOTE | 2018-01-18 23:16 | PD ---
HPI Chief Complaint: Psychiatric Symptoms Time Seen by Provider: 23:09 Travel History International Travel<30 days: No Contact w/Intl Traveler<30days: No Traveled to known affect area: No History of Present Illness HPI 57-year-old male presents under Jaime act initiated by the Police Department. According to his paperwork, "Emerita advise law enforcement that he has suicidal thoughts of walking into traffic to commit suicide. Emerita was in possession of a pocketknife, which was taken by law enforcement an tag for safe keeping." The patient reports that he has had depression for most of his life and today he was feeling suicidal. He endorses heavy alcohol use today and on a regular basis. He has a bleeding abrasion on his nose. He is uncertain how that happened. He denies any pain. He denies any homicidal ideation, illicit drug use. He has no other complaints at this time. PFSH Past Medical History Asthma: Yes Autoimmune Disease: No Blood Disorders: No Anxiety: No Depression: Yes Heart Rhythm Problems: No Cancer: Yes (ORAL ) Cardiovascular Problems: No High Cholesterol: No Chemotherapy: No Chest Pain: No Congestive Heart Failure: No COPD: Yes Cerebrovascular Accident: Yes (PT REPORTS "6 STROKES") Diabetes: No Patient Takes Glucophage: No Diminished Hearing: No Endocrine: No Gastrointestinal Disorders: Yes GERD: Yes Genitourinary: No Hypertension: No Immune Disorder: No Inguinal Hernia: Yes Implanted Vascular Access Dvce: No Musculoskeletal: No Neurologic: No Psychiatric: No Reproductive: No Respiratory: Yes Immunizations Current: Yes Myocardial Infarction: No Radiation Therapy: No Renal Failure: No Schizophrenia: No Seizures: No Sleep Apnea: No Thyroid Disease: No Past Surgical History Abdominal Surgery: Yes (R HERNIA 30 YEARS AGO) AICD: No Arteriovenous Shunt: No Insulin Pump: No Joint Replacement: No Neurologic Surgery: Yes (carpal tunnel surgery, early ) Oral Surgery: Yes (ALL TEETH REMOVED) Pacemaker: No Other Surgery: Yes (HERNIA REPAIR) Social History Alcohol Use: Yes (Daily) Tobacco Use: Yes (1 - 2 PPD) Substance Use: Yes (HX: PSA, ALCOHOL ABUSE) Allergies-Medications (Allergen,Severity, Reaction): Coded Allergies: penicillin G (Verified Allergy, Severe, UNKNOWN CHILDHOOD, 09/03/17) Reported Meds & Prescriptions Reported Meds & Active Scripts Active Review of Systems Except as stated in HPI: all other systems reviewed are Neg Physical Exam Narrative GENERAL: Disheveled male in no acute distress SKIN: Warm and dry. Abrasion noted to the nose. HEAD: Atraumatic. Normocephalic. EYES: Pupils equal and round. No scleral icterus. No injection or drainage. ENT: No nasal bleeding or discharge. Mucous membranes pink and moist. NECK: Trachea midline. No JVD. CARDIOVASCULAR: Regular rate and rhythm. No murmur appreciated. RESPIRATORY: No accessory muscle use. Clear to auscultation. Breath sounds equal bilaterally. GASTROINTESTINAL: Abdomen soft, non-tender, nondistended. Hepatic and splenic margins not palpable. MUSCULOSKELETAL: No obvious deformities. No tenderness to palpation along the neck or back. NEUROLOGICAL: Awake and alert. No obvious cranial nerve deficits. Motor grossly within normal limits. Mildly slurred speech. PSYCHIATRIC: Appropriate mood and affect; insight and judgment normal. Data Data Last Documented VS Vital Signs Date Time Temp Pulse Resp B/P (MAP) Pulse Ox O2 Delivery O2 Flow Rate FiO2 01/18/18 19:59 98.7 78 18 104/72 (83) 97 Orders Orders Complete Blood Count With Diff (01/18/18 21:45) Comprehensive Metabolic Panel (01/18/18 21:45) Thyroid Stimulating Hormone (01/18/18 21:45) Psych Screen (01/18/18 21:45) Drug Screen, Random Urine (01/18/18 21:45) Alcohol (Ethanol) (01/18/18 21:45) Ct Brain W/O Iv Contrast(Rout) (01/18/18 ) Diet Regular Basic (01/19/18 Breakfast) Labs Laboratory Tests Test 01/18/18 22:00 White Blood Count 4.4 TH/MM3 Red Blood Count 4.37 MIL/MM3 Hemoglobin 14.9 GM/DL Hematocrit 43.3 % Mean Corpuscular Volume 99.0 FL Mean Corpuscular Hemoglobin 34.1 PG Mean Corpuscular Hemoglobin Concent 34.4 % Red Cell Distribution Width 15.6 % Platelet Count 151 TH/MM3 Mean Platelet Volume 8.1 FL Neutrophils (%) (Auto) 34.1 % Lymphocytes (%) (Auto) 50.3 % Monocytes (%) (Auto) 9.5 % Eosinophils (%) (Auto) 4.8 % Basophils (%) (Auto) 1.3 % Neutrophils # (Auto) 1.5 TH/MM3 Lymphocytes # (Auto) 2.2 TH/MM3 Monocytes # (Auto) 0.4 TH/MM3 Eosinophils # (Auto) 0.2 TH/MM3 Basophils # (Auto) 0.1 TH/MM3 CBC Comment DIFF FINAL Differential Comment Blood Urea Nitrogen 5 MG/DL Creatinine 0.78 MG/DL Random Glucose 86 MG/DL Total Protein 8.0 GM/DL Albumin 3.9 GM/DL Calcium Level 8.1 MG/DL Alkaline Phosphatase 68 U/L Aspartate Amino Transf (AST/SGOT) 195 U/L Alanine Aminotransferase (ALT/SGPT) 149 U/L Total Bilirubin 0.8 MG/DL Sodium Level 141 MEQ/L Potassium Level 3.9 MEQ/L Chloride Level 104 MEQ/L Carbon Dioxide Level 29.1 MEQ/L Anion Gap 8 MEQ/L Estimat Glomerular Filtration Rate 103 ML/MIN Thyroid Stimulating Hormone 3rd Gen 1.320 uIU/ML Urine Opiates Screen NEG Urine Barbiturates Screen NEG Urine Amphetamines Screen NEG Urine Benzodiazepines Screen NEG Urine Cocaine Screen NEG Urine Cannabinoids Screen NEG Ethyl Alcohol Level 307 MG/DL [facility] Medical Decision Making Medical Screen Exam Complete: Yes Emergency Medical Condition: Yes Medical Record Reviewed: Yes Differential Diagnosis Major depressive disorder, acute psychosis, substance induced mood disorder, adjustment reaction Narrative Course Mental health screening discussed with the patient. Psychiatric screen ordered. AST 195, ALT 149, alcohol level 307. The patient is medically cleared for psychiatric disposition. Diagnosis Primary Impression: Alcohol abuse Antelmo Alonzo Jan 18, 2018 23:16
--- NOTE | 2018-01-18 23:43 | RADRPT ---
EXAM DATE/TIME: 01/18/2018 23:24 [facility] COMPARISON: CT BRAIN W/O CONTRAST, July 18, 2017, 23:29. INDICATIONS : Cephalgia. RADIATION DOSE: 66.34 CTDIvol (mGy) MEDICAL HISTORY : Cardiovascular disease. Stroke SURGICAL HISTORY : None. ENCOUNTER: Initial ACUITY: 1 day PAIN SCALE: 5/10 LOCATION: cranial TECHNIQUE: Multiple contiguous axial images were obtained of the head. Using automated exposure control and adj ustment of the mA and/or kV according to patient size, radiation dose was kept as low as reasonably a chievable to obtain optimal diagnostic quality images. DICOM format image data is available electro nically for review and comparison. FINDINGS: CEREBRUM: There is mild generalized atrophy. Ventricles are normal. There is stable low density consistent with encephalomalacia in the right temporal region. No evidence of midline shift, mass lesion, hemorrhag e or acute infarction. No extra-axial fluid collections are seen. POSTERIOR FOSSA: The cerebellum and brainstem demonstrate no acute finding. The 4th ventricle is midline. The cerebe llopontine angle is unremarkable. EXTRACRANIAL: Visualized sinuses are clear. SKULL: The calvaria is intact. No evidence of skull fracture. CONCLUSION: 1. Stable noncontrast head CT. No acute intracranial abnormality is identified. 2. There is stable encephalomalacia in the region of the right temporal lobe. Guido Urena MD on January 18, 2018 at 23:39 Board Certified Radiologist. This report was verified electronically.
[2018-01-19 02:47] VITALS: BP 97/59; PULSE 71; RESP 20; TEMP 98.8; O2SAT 94
[2018-01-19 06:37] VITALS: BP 92/51; PULSE 85; RESP 18; TEMP 99.1; O2SAT 93
[2018-01-19] MEDS ORDERED: FLUMAZENIL 0.5 MG/5 ML VIAL IV PUSH PRN (08:00)
[2018-01-19] MEDS ORDERED: LORazepam 2 MG TAB PO PRN (08:00)
[2018-01-19] MEDS ORDERED: LORazepam 2 MG/ML VIAL IV PUSH PRN ×4 (08:00)
[2018-01-19] MEDS ORDERED: LORazepam 1 MG TAB PO PRN (08:00)
--- NOTE | 2018-01-19 12:47 | PD ---
History of Present Illness Chief Complaint: Psychiatric Symptoms Time Seen by Provider: 12:35 Travel History International Travel<30 Days: No Contact w/Intl Traveler<30days: No Known affected area: No Legal Status Legal Status: Jaime Act Jaime Act Signed By: Nathan Tijerina History of Present Illness: History of Present Illness HPI 57-year-old , , homeless male with history of alcohol dependence who presents under Jaime act initiated by the Police Department. According to report , "Emerita advise law enforcement that he has suicidal thoughts of walking into traffic to commit suicide. Emerita was in possession of a pocketknife, which was taken by law enforcement an tag for safe keeping." The patient was intoxicated at the time that he was placed under the Jaime act and upon presentation to [facility] emergency Department his blood alcohol level was 307. The patient did not make any attempt to harm himself. He was monitored in secure environment and presented no behavioral concerns and no suicidality. Electronic medical record is reviewed. Patient has had multiple visits to the ED for alcohol related issues. His last visit to the ED was in September 2017. In the past he has been referred to [facility] for substance abuse treatment. The patient was monitored until he was clinically sober. He is alert, oriented , calm and cooperative. Speech is clear, logical and coherent. There is no evidence of any psychosis or rajan. He states that he feels "so-so". He also reports that he's been drinking every day and that he was last detox 1-1/2 year ago. His longest period of sobriety was 4 months. The patient at this time is not suicidal or homicidal and he is wanting treatment for his alcohol dependence. PFSH Past Medical History Asthma: Yes Autoimmune Disease: No Blood Disorders: No Anxiety: No Depression: Yes Heart Rhythm Problems: No Cancer: Yes (ORAL ) Cardiovascular Problems: No High Cholesterol: No Chemotherapy: No Chest Pain: No Congestive Heart Failure: No COPD: Yes Cerebrovascular Accident: Yes (PT REPORTS "6 STROKES") Diabetes: No Patient Takes Glucophage: No Diminished Hearing: No Endocrine: No Gastrointestinal Disorders: Yes GERD: Yes Genitourinary: No Hypertension: No Immune Disorder: No Inguinal Hernia: Yes Implanted Vascular Access Dvce: No Musculoskeletal: No Neurologic: No Psychiatric: No Reproductive: No Respiratory: Yes Immunizations Current: Yes Myocardial Infarction: No Radiation Therapy: No Renal Failure: No Schizophrenia: No Seizures: No Sleep Apnea: No Thyroid Disease: No Past Surgical History Abdominal Surgery: Yes (R HERNIA 30 YEARS AGO) AICD: No Arteriovenous Shunt: No Insulin Pump: No Joint Replacement: No Neurologic Surgery: Yes (carpal tunnel surgery, early ) Oral Surgery: Yes (ALL TEETH REMOVED) Pacemaker: No Other Surgery: Yes (HERNIA REPAIR) Psychiatric History Psychiatric History Hx Psychiatric Treatment: HX ALCOHOL ABUSE HX DEPRESSION WITH SUICIDAL THOUGHTS. Patient not currently in any treatment. History of Inpatient Treatment: Yes Guns or firearms in home: No Social History Patient was born in [place] and has been in [place] for 19 years. He is . Has 1 daughter who lives in [place] and he maintains telephone contact with her. He works doing odd jobs. He is homeless. Hx Alcohol Use: Yes (Daily) Hx Tobacco Use: Yes (1 - 2 PPD) Hx Substance Use: Yes (HX: PSA, ALCOHOL ABUSE) Substance Use Type: Alcohol Other Substances Used: 3-4 16OZ BEERS DAILY Hx of Substance Use Treatment: Yes Family Psychiatric History Negative Allergies-Medications (Allergen,Severity, Reaction): Coded Allergies: penicillin G (Verified Allergy, Severe, UNKNOWN CHILDHOOD, 09/03/17) Reported Meds & Prescriptions Reported Meds & Active Scripts Active Review of Systems Psychiatric: DENIES: Anxiety, Confusion, Mood changes, Depression, Hallucinations, Agitation, Suicidal Ideation, Homicidal Ideation, Delusions Except as stated in HPI: all other systems reviewed are Neg Mental Status Examination Appearance: Disheveled (in hospital attire) Consciousness: Alert Orientation: x4 Motor Activity: Normal gait Speech: Unremarkable Language: Adequate Fund of Knowledge: Adequate Attention and Concentration: Adequate Memory: Unremarkable Mood: Appropriate Affect: Appropriate Thought Process & Associations: Intact, Logical, Goal directed Thought Content: Appropriate Hallucination Type: None Delusion Type: None Suicidal Ideation: No Suicidal Plan: No Suicidal Intention: No Homicidal Ideation: No Homicidal Plan: No Homicidal Intention: No Insight: Poor Judgment: Adequate MDM Medical Decision Making Medical Record Reviewed: Yes Assessment/Plan 57-year-old , , homeless male with history of alcohol dependence who presents under Jaime act initiated by the Police Department. According to report , "Emerita advise law enforcement that he has suicidal thoughts of walking into traffic to commit suicide. Emerita was in possession of a pocketknife, which was taken by law enforcement an tag for safe keeping." The patient was intoxicated at the time that he was placed under the Jaime act and upon presentation to [facility] emergency Department his blood alcohol level was 307. The patient did not make any attempt to harm himself. He was monitored in secure environment and presented no behavioral concerns and no suicidality. Patient was evaluated once he was clinically sober. At the time of this evaluation he presents no psychosis, no rajan, no suicidal or homicidal ideation, intent or plan. He struggles with alcohol dependence and agrees to seek treatment at [facility] for detox. His level of motivation is questionable at this time but nevertheless he will be provided with bus transportation there and is strongly encouraged to follow up with them. The patient does not meet Jaime act criteria at this time. The Jaime act is lifted Psychiatrically clear for discharge from ED. Orders Orders Complete Blood Count With Diff (01/18/18 21:45) Comprehensive Metabolic Panel (01/18/18 21:45) Thyroid Stimulating Hormone (01/18/18 21:45) Psych Screen (01/18/18 21:45) Drug Screen, Random Urine (01/18/18 21:45) Alcohol (Ethanol) (01/18/18 21:45) Ct Brain W/O Iv Contrast(Rout) (01/18/18 ) Diet Regular Basic (01/19/18 Breakfast) Alcohol Withdrawal Asmt-Ciwa Q4HX18 (01/19/18 07:48) Flumazenil Inj (Romazicon Inj) (01/19/18 08:00) Lorazepam (Ativan) (01/19/18 08:00) Lorazepam Inj (Ativan Inj) (01/19/18 08:00) Lorazepam (Ativan) (01/19/18 08:00) Lorazepam Inj (Ativan Inj) (01/19/18 08:00) Lorazepam Inj (Ativan Inj) (01/19/18 08:00) Lorazepam Inj (Ativan Inj) (01/19/18 08:00) Diet Regular Basic (01/19/18 Lunch) Results Vital Signs Date Time Temp Pulse Resp B/P (MAP) Pulse Ox O2 Delivery O2 Flow Rate FiO2 01/19/18 06:37 99.1 85 18 92/51 (65) 93 Room Air 01/19/18 02:47 98.8 71 20 97/59 (72) 94 Room Air 01/18/18 19:59 98.7 78 18 104/72 (83) 97 Laboratory Tests Test 01/18/18 22:00 White Blood Count 4.4 Red Blood Count 4.37 Hemoglobin 14.9 Hematocrit 43.3 Mean Corpuscular Volume 99.0 Mean Corpuscular Hemoglobin 34.1 Mean Corpuscular Hemoglobin Concent 34.4 Red Cell Distribution Width 15.6 Platelet Count 151 Mean Platelet Volume 8.1 Neutrophils (%) (Auto) 34.1 Lymphocytes (%) (Auto) 50.3 Monocytes (%) (Auto) 9.5 Eosinophils (%) (Auto) 4.8 Basophils (%) (Auto) 1.3 Neutrophils # (Auto) 1.5 Lymphocytes # (Auto) 2.2 Monocytes # (Auto) 0.4 Eosinophils # (Auto) 0.2 Basophils # (Auto) 0.1 CBC Comment DIFF FINAL Differential Comment Blood Urea Nitrogen 5 Creatinine 0.78 Random Glucose 86 Total Protein 8.0 Albumin 3.9 Calcium Level 8.1 Alkaline Phosphatase 68 Aspartate Amino Transf (AST/SGOT) 195 Alanine Aminotransferase (ALT/SGPT) 149 Total Bilirubin 0.8 Sodium Level 141 Potassium Level 3.9 Chloride Level 104 Carbon Dioxide Level 29.1 Anion Gap 8 Estimat Glomerular Filtration Rate 103 Thyroid Stimulating Hormone 3rd Gen 1.320 Urine Opiates Screen NEG Urine Barbiturates Screen NEG Urine Amphetamines Screen NEG Urine Benzodiazepines Screen NEG Urine Cocaine Screen NEG Urine Cannabinoids Screen NEG Ethyl Alcohol Level 307 Diagnosis Primary Impression: Alcohol dependence Psychiatrically Cleared: Yes Med/ Other Pt Specific Info: No Meds Exist/No RX given Disposition: 01 DISCHARGE HOME Condition: Stable Problem Qualifiers Primary Impression: Alcohol dependence Qualified Codes: F10.220 - Alcohol dependence with intoxication, uncomplicated Crandall,Dominique Taylor [facility] Jan 19, 2018 12:47
--- NOTE | 2018-01-19 13:24 | PD ---
Physical Exam Date Seen by Provider: Jan 19, 2018 Time Seen by Provider: 13:23 Narrative 57-year-old male previously medically cleared for psychiatric evaluation, has been seen by psychiatric staff and deemed psychiatrically stable for discharge with follow-up with [facility]. Patient remains medically stable at this time. Data Data Last Documented VS Vital Signs Date Time Temp Pulse Resp B/P (MAP) Pulse Ox O2 Delivery O2 Flow Rate FiO2 01/19/18 06:37 99.1 85 18 92/51 (65) 93 Room Air Orders Orders Complete Blood Count With Diff (01/18/18 21:45) Comprehensive Metabolic Panel (01/18/18 21:45) Thyroid Stimulating Hormone (01/18/18 21:45) Psych Screen (01/18/18 21:45) Drug Screen, Random Urine (01/18/18 21:45) Alcohol (Ethanol) (01/18/18 21:45) Ct Brain W/O Iv Contrast(Rout) (01/18/18 ) Diet Regular Basic (01/19/18 Breakfast) Alcohol Withdrawal Asmt-Ciwa Q4HX18 (01/19/18 07:48) Flumazenil Inj (Romazicon Inj) (01/19/18 08:00) Lorazepam (Ativan) (01/19/18 08:00) Lorazepam Inj (Ativan Inj) (01/19/18 08:00) Lorazepam (Ativan) (01/19/18 08:00) Lorazepam Inj (Ativan Inj) (01/19/18 08:00) Lorazepam Inj (Ativan Inj) (01/19/18 08:00) Lorazepam Inj (Ativan Inj) (01/19/18 08:00) Diet Regular Basic (01/19/18 Lunch) Labs Laboratory Tests Test 01/18/18 22:00 White Blood Count 4.4 TH/MM3 Red Blood Count 4.37 MIL/MM3 Hemoglobin 14.9 GM/DL Hematocrit 43.3 % Mean Corpuscular Volume 99.0 FL Mean Corpuscular Hemoglobin 34.1 PG Mean Corpuscular Hemoglobin Concent 34.4 % Red Cell Distribution Width 15.6 % Platelet Count 151 TH/MM3 Mean Platelet Volume 8.1 FL Neutrophils (%) (Auto) 34.1 % Lymphocytes (%) (Auto) 50.3 % Monocytes (%) (Auto) 9.5 % Eosinophils (%) (Auto) 4.8 % Basophils (%) (Auto) 1.3 % Neutrophils # (Auto) 1.5 TH/MM3 Lymphocytes # (Auto) 2.2 TH/MM3 Monocytes # (Auto) 0.4 TH/MM3 Eosinophils # (Auto) 0.2 TH/MM3 Basophils # (Auto) 0.1 TH/MM3 CBC Comment DIFF FINAL Differential Comment Blood Urea Nitrogen 5 MG/DL Creatinine 0.78 MG/DL Random Glucose 86 MG/DL Total Protein 8.0 GM/DL Albumin 3.9 GM/DL Calcium Level 8.1 MG/DL Alkaline Phosphatase 68 U/L Aspartate Amino Transf (AST/SGOT) 195 U/L Alanine Aminotransferase (ALT/SGPT) 149 U/L Total Bilirubin 0.8 MG/DL Sodium Level 141 MEQ/L Potassium Level 3.9 MEQ/L Chloride Level 104 MEQ/L Carbon Dioxide Level 29.1 MEQ/L Anion Gap 8 MEQ/L Estimat Glomerular Filtration Rate 103 ML/MIN Thyroid Stimulating Hormone 3rd Gen 1.320 uIU/ML Urine Opiates Screen NEG Urine Barbiturates Screen NEG Urine Amphetamines Screen NEG Urine Benzodiazepines Screen NEG Urine Cocaine Screen NEG Urine Cannabinoids Screen NEG Ethyl Alcohol Level 307 MG/DL [facility] Medical Record Reviewed: Yes Supervised Visit with SHEEBA: Yes Narrative Course 57-year-old male previously medically cleared for psychiatric evaluation, has been seen by psychiatric staff and deemed psychiatrically stable for discharge with follow-up with [facility] planned. Patient remains medically stable at this time. Diagnosis Primary Impression: Alcohol abuse Additional Impression: Medical clearance for psychiatric admission Patient Instructions: General Instructions Departure Forms: Tests/Procedures Additional Instruction: Follow up with [facility] for treatment lf alcoholism. Disposition: 01 DISCHARGE HOME Condition: Stable Jamison Julian Jan 19, 2018 13:24
== END 2018-01-19 14:05 | disposition home or self-care (01) ==
LOC: NEDAMB 19:37 → NEPJ 01-19 14:05
DX: F10.220 Alcohol dependence with intoxication, uncomplicated (principal); Y90.8 Blood alcohol level of 240 mg/100 ml or more; F32.9 Major depressive disorder, single episode, unspecified; J45.909 Unspecified asthma, uncomplicated; J44.9 Chronic obstructive pulmonary disease, unspecified; K21.9 Gastro-esophageal reflux disease without esophagitis; F17.210 Nicotine dependence, cigarettes, uncomplicated; Z86.73 Personal history of transient ischemic attack (TIA), and cerebral infarction without residual deficits
CPT/HCPCS: 70450; 80053; 80307; 84443; 85025; 99284

== ENCOUNTER 2018-09-26 10:31 | Inpatient (IN) ==
--- NOTE | 2018-09-26 10:45 | ED ---
HPI General Chief Complaint: Stroke Alert Stated Complaint: Poss Stroke Alert Time Seen by Provider: 09/26/18 10:35 Source: patient Mode of arrival: EMS Limitations: no limitations History of Present Illness HPI Narrative: Please note that the patient was placed in the room at 1030, at that time he was not registered but he was seen by me...nihss timing is also 1030.... According to patient he complained of a headache along with left-sided deficits left lower and left upper extremity. This is all new, approximately 30 minutes prior to arrival Per patient is supposed to be on a blood thinner, but he states that he cannot afford it, has a history of blood clots, has a history of previous stroke and COPD. He also has a history of alcohol abuse as well as psychiatric diagnosis. he had a previous stroke before but that affected his right side of his body. Related Data Home Medications Medication Instructions Recorded Confirmed No Known Home Medications 09/26/18 09/26/18 Allergies Allergy/AdvReac Type Severity Reaction Status Date / Time penicillin G Allergy Severe Hives Verified 09/26/18 10:42 Review of Systems ROS: all other systems reviewed are negative PMFSH History History Provided By: Family Member Medical History Medical History Alcohol abuse (Acute) Smoker (Acute) COPD (chronic obstructive pulmonary disease) (Acute) H/O blood clots (Acute) Psychiatric diagnosis (Acute) Stroke (Acute) Surgical History Surgical History Hx of carpal tunnel repair (Acute) Hx of hernia repair (Acute) Hx of oral surgery (Acute) Social History Social History Substance History: No History of Abuse Second Hand Smoke Exposure: Yes Smoking Status: Current every day smoker Tobacco Type: Cigarettes How Often Do You Have a Drink Containing Alcohol: 4 or more times a week Recent Travel in [facility] within the Last 8 Weeks: No Recent Out of Country Travel within the Last 8 Weeks: No Exam Narrative Exam Narrative: GENERAL: thin male in no apparent distress. SKIN: Warm and dry. HEAD: Atraumatic. Normocephalic. EYES: Pupils equal and round. No scleral icterus. No injection or drainage. ENT: No nasal bleeding or discharge. Mucous membranes pink and moist. NECK: Trachea midline. No JVD. CARDIOVASCULAR: Regular rate and rhythm. no rubs or gallops RESPIRATORY: No accessory muscle use. Clear to auscultation. Breath sounds equal bilaterally. GASTROINTESTINAL: Abdomen soft, non-tender, nondistended. No rebound or guarding MUSCULOSKELETAL: Extremities without clubbing, cyanosis, or edema. No obvious deformities. NEUROLOGICAL: Awake and alert. no facial droop, lue/lle no effort against gravity.... Motor grossly within normal limits. Five out of 5 muscle strength in the rue/arms and rle/legs. mild slurred speech. PSYCHIATRIC: Appropriate mood and affect; insight and judgment normal. Course Initial Documented Vital Signs Temperature 98 F 09/26/18 10:32 Pulse Rate 86 09/26/18 10:32 Respiratory Rate 16 09/26/18 10:32 Blood Pressure 117/85 09/26/18 10:32 Pulse Oximetry 97 09/26/18 10:32 Last Documented Vital Signs Temperature 98.1 F 09/26/18 11:32 Pulse Rate 69 09/26/18 11:32 Respiratory Rate 19 09/26/18 11:32 Blood Pressure 104/65 09/26/18 11:32 Pulse Oximetry 100 09/26/18 11:32 Critical Care Time Critical Care Time: Yes Total Critical Care Time: 45 Attestation: Aggregate critical care time was 45 minutes. Time to perform other separately billable procedures was not included in the critical care time. My time did not include minutes spent treating any other patients simultaneously or on activities that did not directly contribute to the patient's treatment. The services I provided to this patient were to treat and/or prevent clinically significant deterioration I provided critical care services requiring my management, as noted below: Chart data review, documentation time, medication orders and management, vital sign assessments/reviewing monitor data, ordering and reviewing lab tests, ordering and interpreting/reviewing x-rays and diagnostic studies, care of the patient and discussion of the patient with the admitting physicians. NIH Stroke Scale NIH Stroke Scale Level of Consciousness: 0-Alert Orientation Questions: 0-Answers both correct Responds to Commands: 0-Both tasks correct Gaze Eye Movement: 0-Horizontal movement WNL Visual Gray: 0-No visual field defect Motor Functions Arm LEFT: 3-No effort against gravity Motor Functions Arm RIGHT: 0-No drift Motor Functions Leg LEFT: 3-No effort against gravity Motor Functions Leg RIGHT: 0-No drift Limb Ataxia: 0-No ataxia Sensory Loss: 0-No sensory loss Best Language: 1-Mild aphasia Articulation: 1-Mild dysarthia Extinction or Inattention Sensory: 0-Absent Total: 8 Medical Decision Making MDM Narrative Medical decision making narrative: after discussing with dr severino, slight delay in offerring tpa due to chronic alcoholism history and awaiting platelet count. patient was provided with risk and benefit information and patient decided to have tpa provided. at 1135. Medical Screen Exam Complete: Yes Emergency Medical Condition: Yes Lab Data Lab results reviewed: Yes I reviewed the patient's lab results. Result diagrams: 09/26/18 10:37 09/26/18 10:37 Lab Results 09/26/18 09/26/18 09/26/18 Range/Units 10:34 10:37 10:37 WBC 4.6 (4.0-11.0) th/mm3 RBC 3.88 L (4.50-5.90) mil/mm3 Hgb 13.7 (13.0-17.0) gm/dL Hct 39.4 (39.0-51.0) % MCV 101.4 H (80.0-100.0) fL MCH 35.2 H (27.0-34.0) pg MCHC 34.7 (32.0-36.0) % RDW 20.2 H (11.6-17.2) % Plt Count 120 L (150-450) th/mm3 MPV 8.1 (7.0-11.0) fL Neut % (Auto) 47.9 (16.0-70.0) % Lymph % (Auto) 37.1 (9.0-44.0) % [place] % (Auto) 12.3 H (0.0-8.0) % Eos % (Auto) 1.5 (0.0-4.0) % Baso % (Auto) 1.2 (0.0-2.0) % Neut # (Auto) 2.2 (1.8-7.7) th/mm3 Lymph # (Auto) 1.7 (1.0-4.8) th/mm3 [place] # (Auto) 0.6 (0.0-0.9) th/mm3 Eos # (Auto) 0.1 (0.0-0.4) th/mm3 Baso # (Auto) 0.1 (0.0-0.2) th/mm3 WBC Differential . Differential Comment Auto diff final PT 9.5 L (9.8-11.6) sec INR 0.9 Ratio APTT 28.0 (23.4-31.7) sec Sodium (136-145) meq/L Potassium (3.5-5.1) meq/L Chloride (98-107) meq/L Carbon Dioxide (21.0-32.0) meq/L Anion Gap (5-15) meq/L BUN (7-18) mg/dL Creatinine (0.60-1.30) mg/dL Estimated GFR (>89) mL/min POC Glucose 88 (68-110) mg/dl Random Glucose (74-106) mg/dL Calcium (8.5-10.1) mg/dL Total Bilirubin (0.2-1.0) mg/dL AST (15-37) U/L ALT (12-78) U/L Alkaline Phosphatase (45-117) U/L Total Creatine Kinase (39-308) U/L Troponin I (0.02-0.05) ng/mL Total Protein (6.4-8.2) g/dL Albumin (3.4-5.0) g/dL Urine Color (Yellw/Straw) Urine Clarity (Clear) Urine pH (5.0-8.5) Ur Specific [place] (1.002-1.035) Urine Protein (Neg-Trace) mg/dL Urine Glucose (UA) (Negative) mg/dL Urine Ketones (Negative) mg/dL Urine Occult Blood (Negative) Urine Nitrate (Negative) Urine Bilirubin (Negative) Urine Urobilinogen (Less than 2) mg/dL Ur Leukocyte Esterase (Negative) Ur Squamous Epith Cells (0-5) /hpf Micro UA Comment Ur Microscopic Review Urine Culture Comments Urine Opiates Screen (Neg) Ur Barbiturates Screen (Neg) Ur Amphetamines Screen (Neg) U Benzodiazepines Scrn (Neg) Urine Cocaine Screen (Neg) U Cannabinoids Screen (Neg) Serum Alcohol (0-5) mg/dL 09/26/18 09/26/18 09/26/18 Range/Units 10:37 10:37 11:09 WBC (4.0-11.0) th/mm3 RBC (4.50-5.90) mil/mm3 Hgb (13.0-17.0) gm/dL Hct (39.0-51.0) % MCV (80.0-100.0) fL MCH (27.0-34.0) pg MCHC (32.0-36.0) % RDW (11.6-17.2) % Plt Count (150-450) th/mm3 MPV (7.0-11.0) fL Neut % (Auto) (16.0-70.0) % Lymph % (Auto) (9.0-44.0) % [place] % (Auto) (0.0-8.0) % Eos % (Auto) (0.0-4.0) % Baso % (Auto) (0.0-2.0) % Neut # (Auto) (1.8-7.7) th/mm3 Lymph # (Auto) (1.0-4.8) th/mm3 [place] # (Auto) (0.0-0.9) th/mm3 Eos # (Auto) (0.0-0.4) th/mm3 Baso # (Auto) (0.0-0.2) th/mm3 WBC Differential Differential Comment PT (9.8-11.6) sec INR Ratio APTT (23.4-31.7) sec Sodium 140 (136-145) meq/L Potassium 4.0 (3.5-5.1) meq/L Chloride 107 (98-107) meq/L Carbon Dioxide 21.6 (21.0-32.0) meq/L Anion Gap 11 (5-15) meq/L BUN 4 L (7-18) mg/dL Creatinine 0.62 (0.60-1.30) mg/dL Estimated GFR Greater than 89 (>89) mL/min POC Glucose (68-110) mg/dl Random Glucose 78 (74-106) mg/dL Calcium 7.9 L (8.5-10.1) mg/dL Total Bilirubin 0.8 (0.2-1.0) mg/dL AST 128 H (15-37) U/L ALT 74 (12-78) U/L Alkaline Phosphatase 59 (45-117) U/L Total Creatine Kinase 92 (39-308) U/L Troponin I Less than 0.02 L (0.02-0.05) ng/mL Total Protein 7.1 (6.4-8.2) g/dL Albumin 3.6 (3.4-5.0) g/dL Urine Color (Yellw/Straw) Urine Clarity (Clear) Urine pH (5.0-8.5) Ur Specific [place] (1.002-1.035) Urine Protein (Neg-Trace) mg/dL Urine Glucose (UA) (Negative) mg/dL Urine Ketones (Negative) mg/dL Urine Occult Blood (Negative) Urine Nitrate (Negative) Urine Bilirubin (Negative) Urine Urobilinogen (Less than 2) mg/dL Ur Leukocyte Esterase (Negative) Ur Squamous Epith Cells (0-5) /hpf Micro UA Comment Ur Microscopic Review Urine Culture Comments Urine Opiates Screen Neg (Neg) Ur Barbiturates Screen Neg (Neg) Ur Amphetamines Screen Neg (Neg) U Benzodiazepines Scrn Neg (Neg) Urine Cocaine Screen Neg (Neg) U Cannabinoids Screen Neg (Neg) Serum Alcohol 344 H (0-5) mg/dL 09/26/18 Range/Units 11:09 WBC (4.0-11.0) th/mm3 RBC (4.50-5.90) mil/mm3 Hgb (13.0-17.0) gm/dL Hct (39.0-51.0) % MCV (80.0-100.0) fL MCH (27.0-34.0) pg MCHC (32.0-36.0) % RDW (11.6-17.2) % Plt Count (150-450) th/mm3 MPV (7.0-11.0) fL Neut % (Auto) (16.0-70.0) % Lymph % (Auto) (9.0-44.0) % [place] % (Auto) (0.0-8.0) % Eos % (Auto) (0.0-4.0) % Baso % (Auto) (0.0-2.0) % Neut # (Auto) (1.8-7.7) th/mm3 Lymph # (Auto) (1.0-4.8) th/mm3 [place] # (Auto) (0.0-0.9) th/mm3 Eos # (Auto) (0.0-0.4) th/mm3 Baso # (Auto) (0.0-0.2) th/mm3 WBC Differential Differential Comment PT (9.8-11.6) sec INR Ratio APTT (23.4-31.7) sec Sodium (136-145) meq/L Potassium (3.5-5.1) meq/L Chloride (98-107) meq/L Carbon Dioxide (21.0-32.0) meq/L Anion Gap (5-15) meq/L BUN (7-18) mg/dL Creatinine (0.60-1.30) mg/dL Estimated GFR (>89) mL/min POC Glucose (68-110) mg/dl Random Glucose (74-106) mg/dL Calcium (8.5-10.1) mg/dL Total Bilirubin (0.2-1.0) mg/dL AST (15-37) U/L ALT (12-78) U/L Alkaline Phosphatase (45-117) U/L Total Creatine Kinase (39-308) U/L Troponin I (0.02-0.05) ng/mL Total Protein (6.4-8.2) g/dL Albumin (3.4-5.0) g/dL Urine Color Straw (Yellw/Straw) Urine Clarity Clear (Clear) Urine pH 6.0 (5.0-8.5) Ur Specific [place] 1.006 (1.002-1.035) Urine Protein Negative (Neg-Trace) mg/dL Urine Glucose (UA) Negative (Negative) mg/dL Urine Ketones Negative (Negative) mg/dL Urine Occult Blood Negative (Negative) Urine Nitrate Negative (Negative) Urine Bilirubin Negative (Negative) Urine Urobilinogen Less than 2 (Less than 2) mg/dL Ur Leukocyte Esterase Negative (Negative) Ur Squamous Epith Cells <1 (0-5) /hpf Micro UA Comment Culture not ind Ur Microscopic Review Not Reportable Urine Culture Comments Culture not ind Urine Opiates Screen (Neg) Ur Barbiturates Screen (Neg) Ur Amphetamines Screen (Neg) U Benzodiazepines Scrn (Neg) Urine Cocaine Screen (Neg) U Cannabinoids Screen (Neg) Serum Alcohol (0-5) mg/dL Imaging Data Radiologist's impression: Head CT 09/26/18 10:35 CONCLUSION: 1. Stable area of cortical infarct involving the right MCA distribution. This was seen on previous scan of 09/22/2018. 2. No acute intracranial hemorrhage. Report was called by [Dr. Michelet Pope to Dr. Hunter at 10:50 AM ] Head CTA 09/26/18 10:35 CONCLUSION: 1. Negative CTA Head. Report was called by Dr. Rodriguez to at 11:14 AM on 09/26/2018.] Neck CTA 09/26/18 10:35 CONCLUSION: 1. No evidence of carotid or vertebral stenosis or occlusion. 2. Scattered emphysematous changes are noted within the visualized upper lung gray. Chest X-Ray 09/26/18 10:36 CONCLUSION: COPD changes. Discharge Plan Discharge Disposition Patient Disposition: 30 Still Patient Discharge Condition Condition: Stable Discharge Details Diagnosis: Acute ischemic stroke Physicians Team ED Provider: Ronald Hunter Primary Care Provider: REBECCA, Other Providers: Madi Severino Rxs /Orders / Referrals /Forms Prescriptions: No Action No Known Home Medications RF: 0 Status ED Status: With Doctor
--- NOTE | 2018-09-26 10:56 | CT ---
EXAM DATE: 09/26/2018 10:50 AM EST AGE/SEX: 57 years / Male INDICATIONS: Stroke alert, left side weakness, history stroke. CLINICAL DATA: This is the patient's initial encounter. Patient reports that signs and symptoms have been present for 1 day and indicates a pain score of Nonresponsive. MEDICAL/SURGICAL HISTORY: Non-responsive. Non-responsive. RADIATION DOSE: 38.57 CTDI (mGy) COMPARISON: [facility] [place], 09/22/2018. . TECHNIQUE: CT of the head without contrast. Using automated exposure control and adjustment of the mA and/or kV according to patient size, radiation dose was kept as low as reasonably achievable to ob tain optimal diagnostic quality images. DICOM format image data is available electronically for revi ew and comparison. FINDINGS: The examination demonstrates an old area of encephalomalacic infarct involving the right MCA distribu tion. There is no acute intracranial hemorrhage. The ventricles are normal in size and configuration. No mass lesion is identified. The appearance of the posterior fossa is unremarkable. The visualized portion of sinus and orbit are intact. CONCLUSION: 1. Stable area of cortical infarct involving the right MCA distribution. This was seen on previous s can of 09/22/2018. 2. No acute intracranial hemorrhage. Report was called by [Dr. Michelet Pope to Dr. Hunter at 10:50 AM ] Electronically signed by: Des Pope MD 09/26/2018 10:54 AM EST
[2018-09-26 11:14] LABS: Baso # (Auto) 0.1 th/mm3 (0.0-0.2); Baso % (Auto) 1.2 % (0.0-2.0); Eos # (Auto) 0.1 th/mm3 (0.0-0.4); Eos % (Auto) 1.5 % (0.0-4.0); Hematocrit 39.4 % (39.0-51.0); Hemoglobin 13.7 gm/dL (13.0-17.0); Lymph # (Auto) 1.7 th/mm3 (1.0-4.8); Lymph % (Auto) 37.1 % (9.0-44.0); Mean Corpuscular HGB Conc 34.7 % (32.0-36.0); Mean Corpuscular Hemoglobin 35.2 pg (27.0-34.0); Mean Corpuscular Volume 101.4 fL (80.0-100.0); Mean Platelet Volume 8.1 fL (7.0-11.0); Mono # (Auto) 0.6 th/mm3 (0.0-0.9); Mono % (Auto) 12.3 % (0.0-8.0); Neut # (Auto) 2.2 th/mm3 (1.8-7.7); Neut % (Auto) 47.9 % (16.0-70.0); Platelet Count 120 th/mm3 (150-450); Red Blood Count 3.88 mil/mm3 (4.50-5.90); Red Cell Distribution Width 20.2 % (11.6-17.2); White Blood Count 4.6 th/mm3 (4.0-11.0)
--- NOTE | 2018-09-26 11:17 | CT ---
EXAM DATE: 09/26/2018 11:06 AM EST AGE/SEX: 57 years / Male INDICATIONS: Stroke alert, left side weakness, history stroke CLINICAL DATA: This is the patient's initial encounter. Patient reports that signs and symptoms have been present for 1 day and indicates a pain score of Nonresponsive. MEDICAL/SURGICAL HISTORY: Cerebrovascular disease. Non-responsive. RADIATION DOSE: 25.22 CTDI (mGy) ; Combined studies COMPARISON: [facility] [place] HEAD W/O CONTRAST, 09/26/2018. . TECHNIQUE: Volumetric scanning was performed using a multi-row detector CT scanner during bolus infu jairo of 100 ml Visipaque 320 (iodixanol) nonionic water-soluble contrast as a cumulative dose for mu ltiple exams. The data was post processed with a variety of visualization algorithms including full volume maximum intensity projection, multi-planar sliding thin slab reformation, curved planar refor mation, and surface rendering techniques. Using automated exposure control and adjustment of the mA and/or kV according to patient size, radiation dose was kept as low as reasonably achievable to obtai n optimal diagnostic quality images. DICOM format image data is available electronically for review and comparison. FINDINGS: There is excellent visualization of the major intracranial arteries out to the second-order branch ve ssels. There is no evidence for aneurysm, vessel truncation or stenosis, and no evidence for vascula r malformation. CONCLUSION: 1. Negative CTA Head. Report was called by Dr. Rodriguez to at 11:14 AM on 09/26/2018.] Electronically signed by: Chuck Rodriguez MD 09/26/2018 11:15 AM EST
--- NOTE | 2018-09-26 11:19 | CT ---
EXAM DATE: 09/26/2018 11:12 AM EST AGE/SEX: 57 years / Male INDICATIONS: Stroke alert, left side weakness, history stroke. CLINICAL DATA: This is the patient's initial encounter. Patient reports that signs and symptoms have been present for 1 day and indicates a pain score of Nonresponsive. MEDICAL/SURGICAL HISTORY: Non-responsive. Non-responsive. RADIATION DOSE: 25.22 CTDI (mGy) ; Combined studies COMPARISON: [facility] – [place], MRI CERVICAL SPINE W/O CONTRAST, 04/18/2016. [facility] – [place], [place] CAROTID ARTERIES, 04/17/2016. . TECHNIQUE: Volumetric scanning was performed using a multirow detector CT scanner during bolus infus ion of 100 ml Visipaque 320 (iodixanol) nonionic water-soluble contrast as a cumulative dose for mul tiple exams. The data was postprocessed with a variety of visualization algorithms including full-v olume maximum intensity projection, multiplanar sliding thin-slab reformation, curved-planar reformat ion, and surface-rendering techniques. Using automated exposure control and adjustment of the mA and /or kV according to patient size, radiation dose was kept as low as reasonably achievable to obtain o ptimal diagnostic quality images. DICOM format image data is available electronically for review and comparison. FINDINGS: Aortic Arch: There is a three-vessel origin of the great vessels from the aorta. No evidence of ost ial narrowing Right Carotid: The common carotid artery is intact. The carotid bulb has a normal configuration wit hout ulceration or narrowing. The internal carotid artery lumen is smooth without stenosis. The ext ernal carotid artery is intact. Left Carotid: The common carotid artery is intact. The carotid bulb has a normal configuration with out ulceration or narrowing. The internal carotid artery lumen is smooth without stenosis. The exte rnal carotid artery is intact. Vertebrals: The vertebral arteries have a symmetric diameter. No stenotic lesions are seen. Percent stenosis is calculated using the diameter of the stenotic region over the diameter of the nor mal distal internal carotid artery. CONCLUSION: 1. No evidence of carotid or vertebral stenosis or occlusion. 2. Scattered emphysematous changes are noted within the visualized upper lung ramos. Electronically signed by: Chuck Rodriguez MD 09/26/2018 11:17 AM EST
[2018-09-26] MEDS ORDERED: Sod Chloride 0.9% Inj 1,000 ML IV.SIG ONE (11:22)
[2018-09-26 11:23] LABS: INR 0.9 Ratio; Prothrombin Time 9.5 sec (9.8-11.6)
[2018-09-26 11:30] LABS: Albumin 3.6 g/dL (3.4-5.0); Anion Gap 11 meq/L (5-15); Aspartate Aminotransferase 128 U/L (15-37); Blood Urea Nitrogen 4 mg/dL (7-18); Calcium 7.9 mg/dL (8.5-10.1); Carbon Dioxide 21.6 meq/L (21.0-32.0); Chloride 107 meq/L (98-107); Glomerular Filtration Rate Greater Than 89 mL/min (>89); Glucose,Random 78 mg/dL (74-106); Sodium 140 meq/L (136-145)
[2018-09-26 11:31] LABS: Alanine Aminotransferase 74 U/L (12-78)
[2018-09-26] MEDS ORDERED: ALTEPLASE DRIP IV.SIG ONE (11:32)
[2018-09-26] MEDS ORDERED: Alteplase Bolus 9 MG/9 ML Syringe IV.PUSH ONE (11:32)
[2018-09-26 11:34] LABS: Alkaline Phosphatase 59 U/L (45-117); Total Protein 7.1 g/dL (6.4-8.2)
--- NOTE | 2018-09-26 11:35 | XR ---
EXAM DATE: 09/26/2018 11:31 AM EST AGE/SEX: 57 years / Male INDICATIONS: Stroke alert with left side weakness. CLINICAL DATA: This is the patient's initial encounter. Patient reports that signs and symptoms have been present for 1 day and indicates a pain score of 0/10. MEDICAL/SURGICAL HISTORY: None. None. COMPARISON: [facility] – [place], CHEST SINGLE AP, 10/17/2016. . FINDINGS: The examination demonstrates COPD changes. No suspicious mass lesions are identified. The heart and m ediastinal contours are within normal limits. The osseous structures are grossly intact. The exam is stable compared to previous dated 10/17/2016. CONCLUSION: COPD changes. Electronically signed by: Des Pope MD 09/26/2018 11:34 AM EST
[2018-09-26 11:37] LABS: Bilirubin,Urine Negative (Negative); Clarity,Urine Clear (Clear); Color,Urine Straw (Yellw/Straw); Glucose,Urine (UA) Negative (Negative); Leukocyte Esterase,Urine Negative (Negative); Nitrite,Urine Negative (Negative); Specific Gravity,Urine 1.006 (1.002-1.035); Squamous Epithelial Cell,Urine <1 /hpf (0-5)
[2018-09-26 11:43] LABS: Amphetamine Screen,Urine Neg (Neg); Barbiturate Screen,Urine Neg (Neg); Cannabinoid Screen,Urine Neg (Neg); Cocaine Screen,Urine Neg (Neg); Opiate Screen,Urine Neg (Neg)
[2018-09-26 11:43] LABS: Creatine Kinase 92 U/L (39-308)
[2018-09-26 11:44] LABS: Alcohol 344 mg/dL (0-5)
--- NOTE | 2018-09-26 12:45 | P.HPFP ---
History of Present Illness Primary Care Physician: UNKNOWN <José Rome Benji Katarina 09/26/18 18:59> UNKNOWN <Javier Olivo III 09/26/18 12:45> Chief Complaint: slurred speech <Javier Olivo III 09/26/18 13:46> History of Present Illness: 57 yo with a PMHx homelessness, alcohol abuse/ dependence, orthostatic hypotension, chronic neck and back pain, prostate problems and multiple strokes in 2008, 2015, 2016 who presents with report of slurred speech yesterday and left sided weakness at around 8:30 this morning. He reports Dr. Preciado treated his first stroke. He states that his camp mate noticed he was slurring his words yesterday. Today he sat down to eat and felt "funny" and could not move his left side, so he decided to come to the hospital. In the ED Dr Hunter spoke with Dr Wyman, neurology, and tPA was started. ASA was held due to PLTs at 120. Neurochecks initiated at q15 minutes showed improvement in left sided weakness. Pt states he hates doctors because they stick him with needles and he is allergic to being stuck by needles. PMH: hypotension prostate problems chronic neck and back pain multiple CVAs PSH: Dr. Vann "plugged a hole in heart. He stuck a plug in it" (possible PFO?) Family Hx: mother: congestive heart failure father: still living at age 84 Medications: none Allergies: Penicillin Social: alcohol: drinks 4-8 beers daily tobacco: 2 packs per day illicit drugs: denies <Javier Olivo III 09/26/18 17:38> - Diagnosis (1) Acute ischemic stroke (2) HTN (hypertension) (3) Alcohol abuse with alcohol-induced disorder <CarterjaymeJosé Benji 09/26/18 18:59> (1) Acute ischemic stroke (2) HTN (hypertension) (3) Alcohol abuse with alcohol-induced disorder <Javier Olivo III 09/26/18 17:16> Inpatient Certification: I certify that the inpatient services were ordered in accordance with Medicare regulations governing the order. This includes certification that hospital inpatient services are reasonable and necessary and in the case of services not specified as inpatient-only under 42 CFR 419.22(n), that they are appropriately provided as inpatient services in accordance to with the 2-midnight benchmark under 43 CFR 412.3(e) <José Rome - 09/26/18 18:59> I certify that the inpatient services were ordered in accordance with Medicare regulations governing the order. This includes certification that hospital inpatient services are reasonable and necessary and in the case of services not specified as inpatient-only under 42 CFR 419.22(n), that they are appropriately provided as inpatient services in accordance to with the 2-midnight benchmark under 43 CFR 412.3(e) <Pallavi REINAJavier 09/26/18 12:45> Review of Systems Constitutional: Denies chills, Denies fever(s) <Pallavi REINAJavier [facility] 09/26/18 17:38> Eyes: Denies change in vision [facility] 09/26/18 17:38> Cardiovascular: Denies chest pain <[facility] 09/26/18 17:38> Respiratory: Denies cough, Denies shortness of breath <[facility] 17:38> Gastrointestinal: Denies bright, red blood in stools, Denies change in bowel habits, Denies loose stools, Denies nausea, Denies vomiting <[facility] 09/26/18 17:38> Genitourinary: Denies painful urination, Denies penile discharge <Pallavi REINA [facility] 09/26/18 17:38> Musculoskeletal: Reports back pain, Reports neck pain <Pallavi REINAJavier [facility] 17:38> Neurologic: Reports abnormal speech, Reports localized weakness (left sided) < Pallavi [facility] 09/26/18 17:38> PMFSH - History History Provided By: Family Member <Roxyyanni REINAJavier [facility] 09/26/18 12:45> - Medical History Medical History: Medical History (Last Updated 09/26/18 @ 10:45 by Rosa Aguilar) Alcohol abuse Smoker COPD (chronic obstructive pulmonary disease) H/O blood clots Psychiatric diagnosis Stroke <José Rome - 09/26/18 18:59> Medical History (Last Updated 09/26/18 @ 10:45 by Rosa Aguilar) Alcohol abuse Smoker COPD (chronic obstructive pulmonary disease) H/O blood clots Psychiatric diagnosis Stroke <Javier Olivo III 09/26/18 12:45> - Surgical History Surgical History: Surgical History (Last Updated 09/22/18 @ 20:12 by Luis Felipe Sheehan) Hx of carpal tunnel repair Hx of hernia repair Hx of oral surgery <José Rome 09/26/18 18:59> Surgical History (Last Updated 09/22/18 @ 20:12 by Luis Felipe Sheehan) Hx of carpal tunnel repair Hx of hernia repair Hx of oral surgery <Javier Olivo III 09/26/18 12:45> - Tobacco History Second Hand Smoke Exposure: Yes <Javier Olivo III 09/26/18 12:45> Tobacco Use In Past 30 Days: Yes <Javier Olivo III 09/26/18 12:45> Smoking Status: Current every day smoker <Javier Olivo III 09/26/18 12:45> Tobacco Type: Cigarettes <Javier Olivo III 09/26/18 12:45> - Alcohol History How Often Do You Have a Drink Containing Alcohol: 4 or more times a week < Javier Olivo III 09/26/18 12:45> - Substance Use History Substance History: No History of Abuse <Javier Olivo III 09/26/18 12:45> - Travel History Recent Travel in the [facility] Within the Last 8 Weeks: No <Javier Olivo III 12:45> Recent Travel Out of the Country Within the Last 8 Weeks: No <Javier Olivo III 09/26/18 12:45> - Immunization History Tetanus Immunization: >5 Years <Javier Olivo III 09/26/18 12:45> Medications and Allergies Allergies Allergy/AdvReac Type Severity Reaction Status Date / Time penicillin G Allergy Severe Hives Verified 09/26/18 10:42 <José Rome 09/26/18 18:59> Home Medications Medication Instructions Recorded Confirmed Type No Known Home Medications 09/26/18 09/26/18 History <José Rome 09/26/18 18:59> Active Medications: Active Medications Acetaminophen (Tylenol) 650 mg PO Q4H PRN PRN Reason: Temp > 100.4 Atorvastatin Calcium (Lipitor) 20 mg PO HS PERLITA Flumazenil (Romazecon Inj) 0.2 mg IV.PUSH Q1M PRN PRN Reason: OVERSEDATION Haloperidol Lactate (Haldol Inj) 1 mg IV.PUSH Q15M PRN PRN Reason: for severe agitation Sodium Chloride (Ns Inj) 1,000 mls @ 70 mls/hr IV.CONT .[id number] [facility] Last Admin: 09/26/18 13:51 Dose: 100 mls/hr Lorazepam (Ativan) 1 mg PO Q4H PRN PRN Reason: for CIWA 8-10 Lorazepam (Ativan) 2 mg PO Q2H PRN PRN Reason: for CIWA 11-14 Lorazepam (Ativan Inj) 2 mg IV.PUSH Q2H PRN PRN Reason: for CIWA 11-14 Lorazepam (Ativan Inj) 2 mg IV.PUSH Q1H PRN PRN Reason: for CIWA 15-20 Lorazepam (Ativan Inj) 2 mg IV.PUSH Q15M PRN PRN Reason: for CIWA > 20 Lorazepam (Ativan Inj) 1 mg IV.PUSH Q4H PRN PRN Reason: for CIWA 8-10 Ondansetron HCl (Zofran Inj) 4 mg IV.PUSH Q6H PRN PRN Reason: NAUSEA OR VOMITING Pantoprazole Sodium (Protonix) 40 mg PO DAILY [facility] Sennosides (Senokot) 17.2 mg PO Q12H PRN PRN Reason: Moderate Constipation Sodium Chloride (Ns Flush) 2 ml IV.FLUSH PRN PRN PRN Reason: FLUSH AFTER USING IV ACCESS Last Admin: 09/26/18 10:56 Dose: 2 ml <José Rome - 09/26/18 18:59> Active Medications Sodium Chloride (Ns Flush) 2 ml IV.FLUSH PRN PRN PRN Reason: FLUSH AFTER USING IV ACCESS Last Admin: 09/26/18 10:56 Dose: 2 ml <Javier Olivo III H - 09/26/18 12:45> Exam Vital signs: Vital Signs 09/26/18 10:32 09/26/18 10:35 09/26/18 10:49 Temperature 98 F 97.8 F Pulse Rate 74 77 Respiratory Rate 16 17 Blood Pressure 117/85 98/66 L Pulse Oximetry 97 96 97 09/26/18 11:32 09/26/18 12:03 09/26/18 12:45 Temperature 98.1 F 97.8 F 97.8 F Pulse Rate 69 69 78 Respiratory Rate 19 17 16 Blood Pressure 104/65 104/70 103/68 Pulse Oximetry 100 99 99 09/26/18 13:00 09/26/18 13:21 09/26/18 13:30 Temperature 97.8 F Pulse Rate 83 69 65 Respiratory Rate 16 20 18 Blood Pressure 108/77 112/72 Pulse Oximetry 91 L 93 L 09/26/18 13:45 09/26/18 14:00 09/26/18 14:02 Temperature 97.9 F Pulse Rate 64 74 66 Respiratory Rate 18 20 18 Blood Pressure 118/78 118/72 118/72 Pulse Oximetry 99 100 100 09/26/18 14:15 09/26/18 14:30 09/26/18 14:45 Temperature Pulse Rate 76 68 80 Respiratory Rate 19 17 25 H Blood Pressure 132/81 118/76 128/82 Pulse Oximetry 100 100 100 09/26/18 15:00 09/26/18 15:15 09/26/18 15:30 Temperature Pulse Rate 66 70 72 Respiratory Rate 17 15 16 Blood Pressure 114/74 106/70 109/70 Pulse Oximetry 99 99 100 09/26/18 16:00 Temperature 97.9 F Pulse Rate 77 Respiratory Rate 20 Blood Pressure 105/67 Pulse Oximetry 94 L Intake & Output 09/25/18 09/26/18 09/26/18 18:59 06:59 18:59 Intake Total 1048.6 / 1048.6 Output Total 400 / 400 Balance 648.6 / 648.6 Weight 62 kg Intake: IV 1048.6 / 1048.6 Activase Drip 48.6 MG In Bag/ 48.6 / 48.6 Syringe 1 EACH @ 48.6 mls/hr IV .SIG ONCE ONE Rx#:[id number] NS Inj 1,000 ML @ Wide Open IV. 1000 / 1000 SIG BOLUS ONE Rx#:[id number] Output: Urine 400 / 400 Other: # Voids 1 Weight On Admission 62 kg <José Rome 09/26/18 18:59> Vital Signs 09/26/18 10:32 09/26/18 10:35 09/26/18 10:49 Temperature 98 F 97.8 F Pulse Rate 74 77 Respiratory Rate 16 17 Blood Pressure 117/85 98/66 L Pulse Oximetry 97 96 97 09/26/18 11:32 09/26/18 12:03 Temperature 98.1 F 97.8 F Pulse Rate 69 69 Respiratory Rate 19 17 Blood Pressure 104/65 104/70 Pulse Oximetry 100 99 Intake & Output 09/25/18 09/26/18 09/26/18 18:59 06:59 18:59 Intake Total 1000 / 1000 Output Total 400 / 400 Balance 600 / 600 Weight 60.8 kg Intake: IV 1000 / 1000 NS Inj 1,000 ML @ Wide Open IV. 1000 / 1000 SIG BOLUS ONE Rx#:[id number] Output: Urine 400 / 400 Other: # Voids 1 <Pallavi REINAJavier - 09/26/18 12:45> Narrative: GENERAL: unkempt 57 YO male lying in bed responding slowly SKIN: Warm and dry. HEAD: Normocephalic. Atraumatic EYES: No scleral icterus. No injection or drainage. NECK: Supple, trachea midline. No JVD or lymphadenopathy. CARDIOVASCULAR: Regular rate and rhythm without murmurs, gallops, or rubs. RESPIRATORY: Breath sounds equal bilaterally. No accessory muscle use. GASTROINTESTINAL: Abdomen soft, non-tender, nondistended. MUSCULOSKELETAL: No cyanosis, or edema. No complaint of pain. BACK: Nontender without obvious deformity. No CVA tenderness. NEUROLOGICAL: Alert and oriented x3: knows name, [facility] and September, but not exact day. Left sided facial weakness with minor facial droop, cannot puff up left cheek, asymmetric smile; states light touch feels less on LUE and LLE; notable pronator drift of LUE; weakness in LLE on leg raise. Perhaps mild dysarthria. <Pallavi REINAJavier - 09/26/18 17:38> Results - Labs Result diagrams: 09/26/18 10:37 09/26/18 10:37 <José Rome Benji - 09/26/18 18:59> Abnormal lab results 09/26/18 09/26/18 09/26/18 Range/Units 10:37 10:37 10:37 RBC 3.88 L (4.50-5.90) mil/mm3 MCV 101.4 H (80.0-100.0) fL MCH 35.2 H (27.0-34.0) pg RDW 20.2 H (11.6-17.2) % Plt Count 120 L (150-450) th/mm3 Robeson % (Auto) 12.3 H (0.0-8.0) % PT 9.5 L (9.8-11.6) sec POC Chloride (102-111) mmol/L POC BUN (5-21) mg/dL BUN 4 L (7-18) mg/dL Calcium 7.9 L (8.5-10.1) mg/dL AST 128 H (15-37) U/L Troponin I Less than 0.02 L (0.02-0.05) ng/mL Serum Alcohol (0-5) mg/dL 09/26/18 Range/Units 10:37 RBC (4.50-5.90) mil/mm3 MCV (80.0-100.0) fL MCH (27.0-34.0) pg RDW (11.6-17.2) % Plt Count (150-450) th/mm3 Robeson % (Auto) (0.0-8.0) % PT (9.8-11.6) sec POC Chloride 101 L (102-111) mmol/L POC BUN Less than 3 L (5-21) mg/dL BUN (7-18) mg/dL Calcium (8.5-10.1) mg/dL AST (15-37) U/L Troponin I (0.02-0.05) ng/mL Serum Alcohol 344 H (0-5) mg/dL Short CBC 09/26/18 Range/Units 10:37 WBC 4.6 (4.0-11.0) th/mm3 Hgb 13.7 (13.0-17.0) gm/dL Hct 39.4 (39.0-51.0) % Plt Count 120 L (150-450) th/mm3 BMP 09/26/18 10:37 Sodium 140 Potassium 4.0 Chloride 107 Carbon Dioxide 21.6 BUN 4 L Creatinine 0.62 Calcium 7.9 L Cardiac Enzymes 09/26/18 Range/Units 10:37 Total Creatine Kinase 92 (39-308) U/L Troponin I Less than 0.02 L (0.02-0.05) ng/mL Liver Function 09/26/18 Range/Units 10:37 Total Bilirubin 0.8 (0.2-1.0) mg/dL AST 128 H (15-37) U/L ALT 74 (12-78) U/L Alkaline Phosphatase 59 (45-117) U/L Albumin 3.6 (3.4-5.0) g/dL Urine 09/26/18 Range/Units 11:09 Urine Color Straw (Yellw/Straw) Urine Clarity Clear (Clear) Urine pH 6.0 (5.0-8.5) Ur Specific Hancock 1.006 (1.002-1.035) Urine Protein Negative (Neg-Trace) mg/dL Urine Glucose (UA) Negative (Negative) mg/dL <José Rome - 09/26/18 18:59> Abnormal lab results 09/26/18 09/26/18 09/26/18 Range/Units 10:37 10:37 10:37 RBC 3.88 L (4.50-5.90) mil/mm3 MCV 101.4 H (80.0-100.0) fL MCH 35.2 H (27.0-34.0) pg RDW 20.2 H (11.6-17.2) % Plt Count 120 L (150-450) th/mm3 Robeson % (Auto) 12.3 H (0.0-8.0) % PT 9.5 L (9.8-11.6) sec POC Chloride (102-111) mmol/L POC BUN (5-21) mg/dL BUN 4 L (7-18) mg/dL Calcium 7.9 L (8.5-10.1) mg/dL AST 128 H (15-37) U/L Troponin I Less than 0.02 L (0.02-0.05) ng/mL Serum Alcohol (0-5) mg/dL 09/26/18 Range/Units 10:37 RBC (4.50-5.90) mil/mm3 MCV (80.0-100.0) fL MCH (27.0-34.0) pg RDW (11.6-17.2) % Plt Count (150-450) th/mm3 Robeson % (Auto) (0.0-8.0) % PT (9.8-11.6) sec POC Chloride 101 L (102-111) mmol/L POC BUN Less than 3 L (5-21) mg/dL BUN (7-18) mg/dL Calcium (8.5-10.1) mg/dL AST (15-37) U/L Troponin I (0.02-0.05) ng/mL Serum Alcohol 344 H (0-5) mg/dL Short CBC 09/26/18 Range/Units 10:37 WBC 4.6 (4.0-11.0) th/mm3 Hgb 13.7 (13.0-17.0) gm/dL Hct 39.4 (39.0-51.0) % Plt Count 120 L (150-450) th/mm3 BMP 09/26/18 10:37 Sodium 140 Potassium 4.0 Chloride 107 Carbon Dioxide 21.6 BUN 4 L Creatinine 0.62 Calcium 7.9 L Cardiac Enzymes 09/26/18 Range/Units 10:37 Total Creatine Kinase 92 (39-308) U/L Troponin I Less than 0.02 L (0.02-0.05) ng/mL Liver Function 09/26/18 Range/Units 10:37 Total Bilirubin 0.8 (0.2-1.0) mg/dL AST 128 H (15-37) U/L ALT 74 (12-78) U/L Alkaline Phosphatase 59 (45-117) U/L Albumin 3.6 (3.4-5.0) g/dL Urine 09/26/18 Range/Units 11:09 Urine Color Straw (Yellw/Straw) Urine Clarity Clear (Clear) Urine pH 6.0 (5.0-8.5) Ur Specific Hancock 1.006 (1.002-1.035) Urine Protein Negative (Neg-Trace) mg/dL Urine Glucose (UA) Negative (Negative) mg/dL <Javier Olivo III H - 09/26/18 12:45> - Imaging Impressions Head CT 09/26/18 10:35 CONCLUSION: 1. Stable area of cortical infarct involving the right MCA distribution. This was seen on previous scan of 09/22/2018. 2. No acute intracranial hemorrhage. Report was called by [Dr. Michelet Pope to Dr. Hunter at 10:50 AM ] Head CTA 09/26/18 10:35 CONCLUSION: 1. Negative CTA Head. Report was called by Dr. Rodriguez to at 11:14 AM on 09/26/2018.] Neck CTA 09/26/18 10:35 CONCLUSION: 1. No evidence of carotid or vertebral stenosis or occlusion. 2. Scattered emphysematous changes are noted within the visualized upper lung ramos. Chest X-Ray 09/26/18 10:36 CONCLUSION: COPD changes. <José Rome - 09/26/18 18:59> Impressions Head CT 09/26/18 10:35 CONCLUSION: 1. Stable area of cortical infarct involving the right MCA distribution. This was seen on previous scan of 09/22/2018. 2. No acute intracranial hemorrhage. Report was called by [Dr. Michelet Pope to Dr. Hunter at 10:50 AM ] Head CTA 09/26/18 10:35 CONCLUSION: 1. Negative CTA Head. Report was called by Dr. Rodriguez to at 11:14 AM on 09/26/2018.] Neck CTA 09/26/18 10:35 CONCLUSION: 1. No evidence of carotid or vertebral stenosis or occlusion. 2. Scattered emphysematous changes are noted within the visualized upper lung ramos. Chest X-Ray 09/26/18 10:36 CONCLUSION: COPD changes. <Javier Olivo III - 09/26/18 17:38> Caprini VTE Risk Assessment Caprini VTE Risk Assessment: Moderate/High Risk (score >= 2) <Javier Olivo III - 09/26/18 17:38> Caprini Risk Assessment Model: Point Value = 1 Point Value = 2 Point Value = 3 Point Value = 5 Age 41-60 Minor surgery BMI > 25 kg/m2 Swollen legs Varicose veins or History of unexplained or recurrent spontaneous Oral contraceptives or hormone replacement Sepsis (< 1 month) Serious lung disease, including pneumonia (< 1 month) Abnormal pulmonary function Acute myocardial infarction Congestive heart failure (< 1 month) History of inflammatory bowel disease Medical patient at bed rest Age 61-74 Arthroscopic surgery Major open surgery (> 45 min) Laparoscopic surgery (> 45 min) Malignancy Confined to bed (> 72 hours) Immobilizing plaster cast Central venous access Age >= 75 History of VTE Family history of VTE Factor V Leiden Prothrombin [id number] Lupus anticoagulant Anticardiolipin antibodies Elevated serum homocysteine Heparin-induced thrombocytopenia Other congenital or acquired thrombophilia Stroke (< 1 month) Elective arthroplasty Hip, pelvis, or leg fracture Acute spinal cord injury (< 1 month) <José Rome Benji Bray 09/26/18 18:59> Prophylaxis Regimen: Total Risk Factor Score Risk Level Prophylaxis Regimen 0-1 Low Early ambulation 2 Moderate Order ONE of the following: *Sequential Compression Device (SCD) *Heparin 5000 units SQ BID 3-4 Higher Order ONE of the following medications: *Heparin 5000 units SQ TID *Enoxaparin/Lovenox 40 mg SQ daily (WT < 150 kg, CrCl > 30 mL/min) *Enoxaparin/Lovenox 30 mg SQ daily (WT < 150 kg, CrCl > 10-29 mL/min) *Enoxaparin/Lovenox 30 mg SQ BID (WT < 150 kg, CrCl > 30 mL/min) AND/OR *Sequential Compression Device (SCD) 5 or more Highest Order ONE of the following medications: *Heparin 5000 units SQ TID (Preferred with Epidurals) *Enoxaparin/Lovenox 40 mg SQ daily (WT < 150 kg, CrCl > 30 mL/min) *Enoxaparin/Lovenox 30 mg SQ daily (WT < 150 kg, CrCl > 10-29 mL/min) *Enoxaparin/Lovenox 30 mg SQ BID (WT < 150 kg, CrCl > 30 mL/min) AND *Sequential Compression Device (SCD) <CarterjaymeJosé Leblanc 09/26/18 18:59> Assessment and Plan - Assessment (1) Acute ischemic stroke Code(s): I63.9 - Cerebral infarction, unspecified Status: Acute (2) HTN (hypertension) Code(s): I10 - Essential (primary) hypertension Status: Chronic (3) Alcohol abuse with alcohol-induced disorder Code(s): F10.19 - Alcohol abuse with unspecified alcohol-induced disorder Status: Chronic <PachecoJosé gordillo 09/26/18 18:59> (1) Acute ischemic stroke Code(s): I63.9 - Cerebral infarction, unspecified Status: Acute (2) HTN (hypertension) Code(s): I10 - Essential (primary) hypertension Status: Acute (3) Alcohol abuse with alcohol-induced disorder Code(s): F10.19 - Alcohol abuse with unspecified alcohol-induced disorder Status: Acute <Javier Olivo III - 09/26/18 17:16> - Assessment and Plan 57 YO homeless male with PMHx alcohol dependence/abuse, hypotension, chronic neck and back pain, prostate problems and Hx of multiple CVAs s/p likely PFO closure by Dr Knight presents with sxs of acute ischemic CVA without imaging showing CVA pathology and started on tPA in the ED. Dr Wyman has been consulted. Acute CVA -Neurology consult (Dr Wyman)--appreciate recs -tPA in ED per protocol -ASA held due to PLTs at 120 -Statin -NS IVF bolus in ED -NS IVF @ 100 mls/hr -ST swallow study when stable -NPO until after swallow study -EKG -ECHO -Neuro checks -A1C pending -Lipid profile HTN -Allow to be permissively hypertensive to 180/95 for first 24-48 hours -Pt has no home medications -Consider starting Lisinopril on 09/28 if required -Pt has been hypotensive Alcohol dependence/abuse with Hx of withdrawal sxs before -EtOH level 344 on admission -CIWA FEN/GI/PPx: -Fluids: IVF as above -Electrolytes: wnl; will monitor daily with BMP -Nutrition: NPO for now -GI: Protonix 40 mg daily -PPx: tPA as above; consider anticoagulation in 24-48 hours; SCDs now Zofran 4 mg q6h PRN Tylenol 650 mg q6h PO PRN CM consult Pt SDW Yoly Rome and Corazon <Javier Olivo III - 09/26/18 17:38> - Attending Attestation The exam, history, and the medical decision-making described in the above note were completed with the assistance of the resident physician. I reviewed and agree with the findings presented. I attest that I had a [id number] encounter with the patient on the same day, and personally performed and documented my assessment and findings in the medical record. 57 yo M with known hx of CVA and what sounds like PFO closure with DVTs/PEs presenting with significant stroke like deficit. s/p tpa with some improvement but persistent deficits. Patient also is homeless, known alcohol abuse disorder and presented intoxicated with EtOH level of 344. On exam he is dysarthric with LUE and LLE weakness (3+) hardly can move against gravity. Neurology was consulted (Garo) and we appreciate his recommendations. We are following them by maintaining bp control s/p tpa and follow up CT and MR/MRA head. will place on CIWA protocol and trend neuro exam as well. Transaminitis, macrocytosis, and thrombocytopenia likely 2/2 EtOH toxicity. Will get therapies and see what discharge possibilites are, imagine he needs anticoagulation again if possible. <José Rome - 09/26/18 18:59>
[2018-09-26] MEDS ORDERED: Acetaminophen 325 MG Tablet PO PRN (13:06)
[2018-09-26] MEDS ORDERED: Haloperidol Inj 5 MG/ML Ampul IV.PUSH PRN (13:47)
[2018-09-26] MEDS ORDERED: LORazepam 1 MG Tablet PO PRN (13:47)
[2018-09-26] MEDS: Sod Chloride 0.9% Inj 1,000 ML IV.CONT SCH (13:51)
--- NOTE | 2018-09-26 16:38 | P.CONNEU ---
History of Present Illness Service: Neurology Primary Care Provider: UNKNOWN Chief Complaint: slurred speech History of Present Illness: 57-year-old male admitted for stroke. Came in stroke alert activated as he had symptoms of left-sided weakness occurring approximately an hour prior to arrival. Has a history of previous stroke and has some left-sided weakness from that with very mild residual however his weakness was worse today. He also is noted to be mildly hypotensive and had odor of alcohol. CT brain scan negative for any acute lesion previous stroke noted. CTAs of the brain and carotid not show any vaso-occlusive disease. Treatment options were discussed with the patient discussed IV TPA. Risk benefits discussed including ICH, stomach bleeding. Patient want to proceed with treatment. Some delay in treatment with IV TPA as we are waiting for his platelets to come back to limit the chances for bleeding. He admits to continue to smoke 1-2 packs a day. States he lives in the [facility] does not take any blood thinners no medications no medical care. He has been seen at [facility] and treated for stroke there he states. Review of Systems All other systems reviewed negative except as stated in HPI PMFSH - History History Provided By: Family Member - Medical History Medical History: Medical History (Last Updated 09/26/18 @ 10:45 by Rosa Aguilar) Alcohol abuse Smoker COPD (chronic obstructive pulmonary disease) H/O blood clots Psychiatric diagnosis Stroke - Surgical History Surgical History: Surgical History (Last Updated 09/22/18 @ 20:12 by Luis Felipe Sheehan) Hx of carpal tunnel repair Hx of hernia repair Hx of oral surgery - Tobacco History Second Hand Smoke Exposure: Yes Tobacco Use In Past 30 Days: Yes Smoking Status: Current every day smoker Tobacco Type: Cigarettes - Alcohol History How Often Do You Have a Drink Containing Alcohol: 4 or more times a week - Substance Use History Substance History: No History of Abuse - Travel History Recent Travel in the [place] Within the Last 8 Weeks: No Recent Travel Out of the Country Within the Last 8 Weeks: No - Immunization History Tetanus Immunization: >5 Years Medications and Allergies Active Medications: Active Medications Acetaminophen (Tylenol) 650 mg PO Q4H PRN PRN Reason: Temp > 100.4 Flumazenil (Romazecon Inj) 0.2 mg IV.PUSH Q1M PRN PRN Reason: OVERSEDATION Haloperidol Lactate (Haldol Inj) 1 mg IV.PUSH Q15M PRN PRN Reason: for severe agitation Sodium Chloride (Ns Inj) 1,000 mls @ 70 mls/hr IV.CONT .[id number] PERLITA Last Admin: 09/26/18 13:51 Dose: 100 mls/hr Lorazepam (Ativan) 1 mg PO Q4H PRN PRN Reason: for CIWA 8-10 Lorazepam (Ativan) 2 mg PO Q2H PRN PRN Reason: for CIWA 11-14 Lorazepam (Ativan Inj) 2 mg IV.PUSH Q2H PRN PRN Reason: for CIWA 11-14 Lorazepam (Ativan Inj) 2 mg IV.PUSH Q1H PRN PRN Reason: for CIWA 15-20 Lorazepam (Ativan Inj) 2 mg IV.PUSH Q15M PRN PRN Reason: for CIWA > 20 Lorazepam (Ativan Inj) 1 mg IV.PUSH Q4H PRN PRN Reason: for CIWA 8-10 Ondansetron HCl (Zofran Inj) 4 mg IV.PUSH Q6H PRN PRN Reason: NAUSEA OR VOMITING Sennosides (Senokot) 17.2 mg PO Q12H PRN PRN Reason: Moderate Constipation Sodium Chloride (Ns Flush) 2 ml IV.FLUSH PRN PRN PRN Reason: FLUSH AFTER USING IV ACCESS Last Admin: 09/26/18 10:56 Dose: 2 ml Allergies Allergy/AdvReac Type Severity Reaction Status Date / Time penicillin G Allergy Severe Hives Verified 09/26/18 10:42 Home Medications Medication Instructions Recorded Confirmed Type No Known Home Medications 09/26/18 09/26/18 History Exam Vital signs: Vital Signs 09/26/18 10:32 09/26/18 10:35 09/26/18 10:49 Temperature 98 F 97.8 F Pulse Rate 74 77 Respiratory Rate 16 17 Blood Pressure 117/85 98/66 L Pulse Oximetry 97 96 97 09/26/18 11:32 09/26/18 12:03 09/26/18 12:45 Temperature 98.1 F 97.8 F 97.8 F Pulse Rate 69 69 78 Respiratory Rate 19 17 16 Blood Pressure 104/65 104/70 103/68 Pulse Oximetry 100 99 99 09/26/18 13:00 09/26/18 13:21 09/26/18 13:30 Temperature 97.8 F Pulse Rate 83 69 65 Respiratory Rate 16 20 18 Blood Pressure 108/77 112/72 Pulse Oximetry 91 L 93 L 09/26/18 13:45 09/26/18 14:00 09/26/18 14:02 Temperature 97.9 F Pulse Rate 64 74 66 Respiratory Rate 18 20 18 Blood Pressure 118/78 118/72 118/72 Pulse Oximetry 99 100 100 09/26/18 14:15 09/26/18 14:30 09/26/18 14:45 Temperature Pulse Rate 76 68 80 Respiratory Rate 19 17 25 H Blood Pressure 132/81 118/76 128/82 Pulse Oximetry 100 100 100 09/26/18 15:00 09/26/18 15:15 09/26/18 15:30 Temperature Pulse Rate 66 70 72 Respiratory Rate 17 15 16 Blood Pressure 114/74 106/70 109/70 Pulse Oximetry 99 99 100 09/26/18 16:00 Temperature 97.9 F Pulse Rate 77 Respiratory Rate 20 Blood Pressure 105/67 Pulse Oximetry 98 Intake & Output 09/25/18 09/26/18 09/26/18 18:59 06:59 18:59 Intake Total 1048.6 / 1048.6 Output Total 400 / 400 Balance 648.6 / 648.6 Weight 60.8 kg Intake: IV 1048.6 / 1048.6 Activase Drip 48.6 MG In Bag/ 48.6 / 48.6 Syringe 1 EACH @ 48.6 mls/hr IV .SIG ONCE ONE Rx#:[id number] NS Inj 1,000 ML @ Wide Open IV. 1000 / 1000 SIG BOLUS ONE Rx#:[id number] Output: Urine 400 / 400 Other: # Voids 1 Narrative: GENERAL: in NAD, SKIN: Warm and dry. HEAD: Atraumatic. Normocephalic. EYES: Pupils equal and round. No scleral icterus. ENT: No nasal bleeding or discharge. NECK: Trachea midline. No JVD. CARDIOVASCULAR: Regular rate and rhythm. RESPIRATORY: No accessory muscle use. GASTROINTESTINAL: Abdomen soft, non-tender, nondistended. MUSCULOSKELETAL: Extremities without clubbing, cyanosis, or edema. NEUROLOGICAL: Awake alert oriented x3, mildly dysarthric speech, slightly reduced left nasolabial fold, mild left hemiparesis able to raise both left upper and lower extremity gravity for at least 5 seconds mild dystaxia strength 4 out of 5 PSYCHIATRIC: Calm pleasant - Constitutional no acute distress - Routine HEENT Exam Head: Present: normocephalic Eye: Present: EOMI Results - Labs CBC & Chem 7: 09/26/18 10:37 09/26/18 10:37 Labs: Laboratory Results - last 24 hr 09/26/18 09/26/18 09/26/18 10:34 10:37 10:37 WBC 4.6 RBC 3.88 L Hgb 13.7 POC Hgb (Calc) Hct 39.4 POC Hct MCV 101.4 H MCH 35.2 H MCHC 34.7 RDW 20.2 H Plt Count 120 L MPV 8.1 Neut % (Auto) 47.9 Lymph % (Auto) 37.1 Mcclain % (Auto) 12.3 H Eos % (Auto) 1.5 Baso % (Auto) 1.2 Neut # (Auto) 2.2 Lymph # (Auto) 1.7 Mcclain # (Auto) 0.6 Eos # (Auto) 0.1 Baso # (Auto) 0.1 WBC Differential . Differential Comment Auto diff final PT 9.5 L INR 0.9 APTT 28.0 POC Sodium Sodium POC Potassium Potassium POC Chloride Chloride Carbon Dioxide Anion Gap POC BUN BUN Creatinine POC Creatinine Estimated GFR POC Glucose 88 Random Glucose Calcium Total Bilirubin AST ALT Alkaline Phosphatase Total Creatine Kinase Troponin I Total Protein Albumin Urine Color Urine Clarity Urine pH Ur Specific Aurora Urine Protein Urine Glucose (UA) Urine Ketones Urine Occult Blood Urine Nitrate Urine Bilirubin Urine Urobilinogen Ur Leukocyte Esterase Ur Squamous Epith Cells Micro UA Comment Ur Microscopic Review Urine Culture Comments Urine Opiates Screen Ur Barbiturates Screen Ur Amphetamines Screen U Benzodiazepines Scrn Urine Cocaine Screen U Cannabinoids Screen Serum Alcohol 09/26/18 09/26/18 09/26/18 10:37 10:37 11:09 WBC RBC Hgb POC Hgb (Calc) 13.9 Hct POC Hct 41.0 MCV MCH MCHC RDW Plt Count MPV Neut % (Auto) Lymph % (Auto) Mcclain % (Auto) Eos % (Auto) Baso % (Auto) Neut # (Auto) Lymph # (Auto) Mcclain # (Auto) Eos # (Auto) Baso # (Auto) WBC Differential Differential Comment PT INR APTT POC Sodium 140 Sodium 140 POC Potassium 4.0 Potassium 4.0 POC Chloride 101 L Chloride 107 Carbon Dioxide 21.6 Anion Gap 11 POC BUN Less than 3 L BUN 4 L Creatinine 0.62 POC Creatinine 0.9 Estimated GFR Greater than 89 POC Glucose 86 Random Glucose 78 Calcium 7.9 L Total Bilirubin 0.8 AST 128 H ALT 74 Alkaline Phosphatase 59 Total Creatine Kinase 92 Troponin I Less than 0.02 L Total Protein 7.1 Albumin 3.6 Urine Color Urine Clarity Urine pH Ur Specific Aurora Urine Protein Urine Glucose (UA) Urine Ketones Urine Occult Blood Urine Nitrate Urine Bilirubin Urine Urobilinogen Ur Leukocyte Esterase Ur Squamous Epith Cells Micro UA Comment Ur Microscopic Review Urine Culture Comments Urine Opiates Screen Neg Ur Barbiturates Screen Neg Ur Amphetamines Screen Neg U Benzodiazepines Scrn Neg Urine Cocaine Screen Neg U Cannabinoids Screen Neg Serum Alcohol 344 H 09/26/18 11:09 WBC RBC Hgb POC Hgb (Calc) Hct POC Hct MCV MCH MCHC RDW Plt Count MPV Neut % (Auto) Lymph % (Auto) Mcclain % (Auto) Eos % (Auto) Baso % (Auto) Neut # (Auto) Lymph # (Auto) Mcclain # (Auto) Eos # (Auto) Baso # (Auto) WBC Differential Differential Comment PT INR APTT POC Sodium Sodium POC Potassium Potassium POC Chloride Chloride Carbon Dioxide Anion Gap POC BUN BUN Creatinine POC Creatinine Estimated GFR POC Glucose Random Glucose Calcium Total Bilirubin AST ALT Alkaline Phosphatase Total Creatine Kinase Troponin I Total Protein Albumin Urine Color Straw Urine Clarity Clear Urine pH 6.0 Ur Specific Aurora 1.006 Urine Protein Negative Urine Glucose (UA) Negative Urine Ketones Negative Urine Occult Blood Negative Urine Nitrate Negative Urine Bilirubin Negative Urine Urobilinogen Less than 2 Ur Leukocyte Esterase Negative Ur Squamous Epith Cells <1 Micro UA Comment Culture not ind Ur Microscopic Review Not Reportable Urine Culture Comments Culture not ind Urine Opiates Screen Ur Barbiturates Screen Ur Amphetamines Screen U Benzodiazepines Scrn Urine Cocaine Screen U Cannabinoids Screen Serum Alcohol - Imaging Impressions Head CT 09/26/18 10:35 CONCLUSION: 1. Stable area of cortical infarct involving the right MCA distribution. This was seen on previous scan of 09/22/2018. 2. No acute intracranial hemorrhage. Report was called by [Dr. Michelet Pope to Dr. Hunter at 10:50 AM ] Head CTA 09/26/18 10:35 CONCLUSION: 1. Negative CTA Head. Report was called by Dr. Rodriguez to at 11:14 AM on 09/26/2018.] Neck CTA 09/26/18 10:35 CONCLUSION: 1. No evidence of carotid or vertebral stenosis or occlusion. 2. Scattered emphysematous changes are noted within the visualized upper lung ramos. Chest X-Ray 09/26/18 10:36 CONCLUSION: COPD changes. Review/Management - Diagnosis (1) Acute ischemic stroke Code(s): I63.9 - Cerebral infarction, unspecified Status: Acute Current Visit: Yes (2) Tobacco use Code(s): Z72.0 - Tobacco use Status: Acute Current Visit: Yes (3) Alcohol abuse with alcohol-induced disorder Code(s): F10.19 - Alcohol abuse with unspecified alcohol-induced disorder Status: Acute Current Visit: No (4) HTN (hypertension) Code(s): I10 - Essential (primary) hypertension Status: Acute Current Visit : Yes - Review/Management Plan: Possible new infarct versus extension versus exacerbation of previous deficit secondary to hypotension and ethanolism Persistent tobacco use despite understanding the risks of recurrent stroke, heart attack, cancer Recommendation Post IV TPA order set Blood pressure less than 180/100 all times No blood thinners times 24 hours Follow-up CT brain 24 hours MRI MRA brain if feasible Echo Lipid panel Therapy SCDs Discussed with MADINA
[2018-09-26 16:56] LABS: Hemoglobin A1c 4.7 % (4.3-6.0)
--- NOTE | 2018-09-26 18:03 | ECG ---
Date Performed: 09/26/2018 Time Performed: 10:34:42 PTAGE: 57 years EKG: Sinus rhythm WITH FIRST DEGREE AV BLOCK ABNORMAL ECG Since PREVIOUS TRACING , no significant change noted PREVIOUS TRACIN09/22/2018 20.16 DOCTOR: Libra Pastrana Interpretating Date/Time 09/26/2018 18:01:50
--- NOTE | 2018-09-26 19:22 | MR ---
EXAM DATE: 09/26/2018 6:19 PM EST AGE/SEX: 57 years / Male INDICATIONS: CVA. Left sided weakness. CLINICAL DATA: This is the patient's subsequent encounter. Patient reports that signs and symptoms h ave been present for 1 day and indicates a pain score of 0/10. MEDICAL/SURGICAL HISTORY: Cerebrovascular disease. Chronic obstructive pulmonary disease. Umbi lical hernia repair. Carpal tunnel syndrome. Repair of hole in heart. COMPARISON: [facility] [place], MRI BRAIN W/O CONTRAST, 10/18/2016. . TECHNIQUE: Multiplanar, multisequence examination of the brain was performed without contrast. FINDINGS: Cerebrum: Atrophy. Encephalomalacia involving the right parietal lobe and left frontal lobe. This is stable. The ventricles are normal for age. No evidence of midline shift, mass lesion, hemorrhage or acute infarction. No extraaxial fluid collections are seen. The pituitary gland and suprasellar cis tern are normal in configuration. White Matter: No significant signal abnormalities are seen in the white matter. Posterior Fossa: The cerebellum and brainstem are intact. The 4th ventricle is midline. The cerebel lopontine angle is unremarkable. The cerebellar tonsils are normal in position. Diffusion Imaging: No focal areas of restricted diffusion are seen. No evidence of acute infarction . Extracranial: The visualized portions of the orbits and paranasal sinuses are unremarkable. CONCLUSION: 1. No acute intracranial abnormality. 2. Prior infarctions involving the right parietal lobe and left frontal lobe. These are long-term st able. Electronically signed by: Leonel Moulton MD 09/26/2018 7:21 PM EST
--- NOTE | 2018-09-26 21:31 | ECHRPT ---
Indication: CVA/TIA CONCLUSIONS Normal left ventricular size. The left ventricular systolic function is normal with an estimated eje ction fraction in the range of 55-60%. No definite regional wall motion abnormalities are present. Wall thickness is normal. There is trace tricuspid valve regurgitation. The estimated pulmonary arterial pressure is 19. mmHg. BP: / HR: Rhythm: MEASUREMENTS (Male / Female) Normal Values Technical Quality:Very technically difficult study 2D ECHO LV Diastolic Diameter PLAX 4.2 cm 4.2 - 5.9 / 3.9 - 5.3 cm LV Systolic Diameter PLAX 3.2 cm IVS Diastolic Thickness 0.9 cm 0.6 - 1.0 / 0.6 - 0.9 cm LVPW Diastolic Thickness 1.0 cm 0.6 - 1.0 / 0.6 - 0.9 cm LV Relative Wall Thickness 0.5 RV Internal Dim ED PLAX 3.1 cm LVOT Diameter 2.4 cm Aortic Root Diameter 2.5 cm LA Systolic Diameter LX 2.5 cm 3.0 - 4.0 / 2.7 - 3.8 cm M-MODE Aortic Root Diameter MM 2.9 cm LA Systolic Diameter MM 3.4 cm LA Ao Ratio MM 1.2 AV Cusp Separation MM 2.5 cm DOPPLER TR Peak Velocity 152.0 cm/s TR Peak Gradient 9.2 mmHg Right Atrial Pressure 10.0 mmHg Pulmonary Artery Systolic Pressu 19.2 mmHg Right Ventricular Systolic Press 19.2 mmHg PV Peak Velocity 80.1 cm/s PV Peak Gradient 2.6 mmHg FINDINGS LEFT VENTRICLE Normal left ventricular size. The left ventricular systolic function is normal with an estimated eje ction fraction in the range of 55-60%. No definite regional wall motion abnormalities are present. Wall thickness is normal. RIGHT VENTRICLE Normal right ventricular size and systolic function. LEFT ATRIUM The left atrial size is normal. RIGHT ATRIUM Echogenic area noted in right atrium. Only in one view. ATRIAL SEPTUM Normal atrial septal thickness without atrial level shunting by limited color doppler interrogation. AORTA The aortic root and proximal ascending aorta are normal in size on limited imaging. MITRAL VALVE Structurally normal mitral valve. No mitral valve stenosis or regurgitation. AORTIC VALVE Trileaflet aortic valve. No aortic valve stenosis or regurgitation. TRICUSPID VALVE There is trace tricuspid valve regurgitation. The estimated pulmonary arterial pressure is 19. mmHg. PULMONARY VALVE No pulmonary valve regurgitation or stenosis. VESSELS The inferior vena cava is normal in size. PERICARDIUM No pericardial effusion. Deangelo H. Roxanne MD (Electronically Signed) Final Date:26 September 2018 21:30
[2018-09-27] MEDS: Sod Chloride 0.9% Inj 1,000 ML IV.CONT SCH ×2 (04:18→18:25)
[2018-09-27 06:59] LABS: Baso % (Auto) 1.2 % (0.0-2.0); Eos # (Auto) 0.1 th/mm3 (0.0-0.4); Eos % (Auto) 1.6 % (0.0-4.0); Hematocrit 43.4 % (39.0-51.0); Hemoglobin 14.5 gm/dL (13.0-17.0); Lymph % (Auto) 26.7 % (9.0-44.0); Mean Corpuscular HGB Conc 33.5 % (32.0-36.0); Mean Corpuscular Hemoglobin 34.4 pg (27.0-34.0); Mean Corpuscular Volume 102.9 fL (80.0-100.0); Mean Platelet Volume 8.3 fL (7.0-11.0); Mono # (Auto) 0.4 th/mm3 (0.0-0.9); Mono % (Auto) 10.9 % (0.0-8.0); Neut # (Auto) 2.2 th/mm3 (1.8-7.7); Neut % (Auto) 59.6 % (16.0-70.0); Platelet Count 106 th/mm3 (150-450); Red Blood Count 4.22 mil/mm3 (4.50-5.90); Red Cell Distribution Width 20.7 % (11.6-17.2); White Blood Count 3.7 th/mm3 (4.0-11.0)
[2018-09-27 07:23] LABS: Anion Gap 5 meq/L (5-15); Blood Urea Nitrogen 7 mg/dL (7-18); Calcium 8.4 mg/dL (8.5-10.1); Carbon Dioxide 27.9 meq/L (21.0-32.0); Chloride 106 meq/L (98-107); Glomerular Filtration Rate Greater Than 89 mL/min (>89); Glucose,Random 93 mg/dL (74-106); Potassium 4.1 meq/L (3.5-5.1); Sodium 139 meq/L (136-145)
[2018-09-27 07:25] LABS: Cholesterol 208 mg/dL (120-200); Triglycerides 45 mg/dL (42-150)
[2018-09-27 07:26] LABS: Chol/HDL Ratio 2.17 Ratio; HDL Cholesterol 95.6 mg/dL (40.0-60.0); LDL Cholesterol,Calculated 103 mg/dL (0-99)
--- NOTE | 2018-09-27 08:06 | P.PNNEU ---
Subjective Subjective Comments: no acute events. no alfonso, no cp/dyspnea Active Medications: Active Medications Acetaminophen (Tylenol) 650 mg PO Q4H PRN PRN Reason: Temp > 100.4 Atorvastatin Calcium (Lipitor) 20 mg PO HS [facility] Last Admin: 09/26/18 20:33 Dose: 20 mg Flumazenil (Romazecon Inj) 0.2 mg IV.PUSH Q1M PRN PRN Reason: OVERSEDATION Haloperidol Lactate (Haldol Inj) 1 mg IV.PUSH Q15M PRN PRN Reason: for severe agitation Sodium Chloride (Ns Inj) 1,000 mls @ 70 mls/hr IV.CONT .[id number] [facility] Last Admin: 09/27/18 04:18 Dose: 100 mls/hr Lorazepam (Ativan) 1 mg PO Q4H PRN PRN Reason: for CIWA 8-10 Lorazepam (Ativan) 2 mg PO Q2H PRN PRN Reason: for CIWA 11-14 Lorazepam (Ativan Inj) 2 mg IV.PUSH Q2H PRN PRN Reason: for CIWA 11-14 Lorazepam (Ativan Inj) 2 mg IV.PUSH Q1H PRN PRN Reason: for CIWA 15-20 Lorazepam (Ativan Inj) 2 mg IV.PUSH Q15M PRN PRN Reason: for CIWA > 20 Lorazepam (Ativan Inj) 1 mg IV.PUSH Q4H PRN PRN Reason: for CIWA 8-10 Ondansetron HCl (Zofran Inj) 4 mg IV.PUSH Q6H PRN PRN Reason: NAUSEA OR VOMITING Pantoprazole Sodium (Protonix) 40 mg PO DAILY [facility] Sennosides (Senokot) 17.2 mg PO Q12H PRN PRN Reason: Moderate Constipation Sodium Chloride (Ns Flush) 2 ml IV.FLUSH PRN PRN PRN Reason: FLUSH AFTER USING IV ACCESS Last Admin: 09/26/18 10:56 Dose: 2 ml Allergies/Adverse Reactions: Allergies Allergy/AdvReac Type Severity Reaction Status Date / Time penicillin G Allergy Severe Hives Verified 09/26/18 10:42 Review of Systems All other systems reviewed negative except as stated in HPI Physical Exam Vital signs: Vital Signs 09/26/18 10:32 09/26/18 10:35 09/26/18 10:49 Temperature 98 F 97.8 F Pulse Rate 74 77 Respiratory Rate 16 17 Blood Pressure 117/85 98/66 L Pulse Oximetry 97 96 97 09/26/18 11:32 09/26/18 12:03 09/26/18 12:45 Temperature 98.1 F 97.8 F 97.8 F Pulse Rate 69 69 78 Respiratory Rate 19 17 16 Blood Pressure 104/65 104/70 103/68 Pulse Oximetry 100 99 99 09/26/18 13:00 09/26/18 13:21 09/26/18 13:30 Temperature 97.8 F Pulse Rate 83 69 65 Respiratory Rate 16 20 18 Blood Pressure 108/77 112/72 Pulse Oximetry 91 L 93 L 09/26/18 13:45 09/26/18 14:00 09/26/18 14:02 Temperature 97.9 F Pulse Rate 64 74 66 Respiratory Rate 18 20 18 Blood Pressure 118/78 118/72 118/72 Pulse Oximetry 99 100 100 09/26/18 14:15 09/26/18 14:30 09/26/18 14:45 Temperature Pulse Rate 76 68 80 Respiratory Rate 19 17 25 H Blood Pressure 132/81 118/76 128/82 Pulse Oximetry 100 100 100 09/26/18 15:00 09/26/18 15:15 09/26/18 15:30 Temperature Pulse Rate 66 70 72 Respiratory Rate 17 15 16 Blood Pressure 114/74 106/70 109/70 Pulse Oximetry 99 99 100 09/26/18 16:00 09/26/18 16:30 09/26/18 17:00 Temperature 97.9 F Pulse Rate 77 72 74 Respiratory Rate 20 18 17 Blood Pressure 105/67 108/66 113/67 Pulse Oximetry 94 L 100 100 09/26/18 17:30 09/26/18 18:18 09/26/18 18:25 Temperature Pulse Rate 79 79 80 Respiratory Rate 19 18 17 Blood Pressure 102/60 135/79 Pulse Oximetry 99 98 99 09/26/18 18:30 09/26/18 18:45 09/26/18 19:00 Temperature Pulse Rate 86 82 78 Respiratory Rate 19 16 18 Blood Pressure 143/85 H 142/73 H 108/71 Pulse Oximetry 100 100 99 09/26/18 19:15 09/26/18 19:17 09/26/18 19:30 Temperature Pulse Rate 78 83 Respiratory Rate 18 17 Blood Pressure 111/66 118/70 Pulse Oximetry 99 98 99 09/26/18 20:00 09/26/18 21:00 09/26/18 22:00 Temperature Pulse Rate 77 77 74 Respiratory Rate 18 18 16 Blood Pressure 107/65 117/65 127/70 Pulse Oximetry 99 98 99 09/26/18 23:00 09/27/18 00:00 09/27/18 00:07 Temperature 98.4 F Pulse Rate 72 71 73 Respiratory Rate 17 15 14 Blood Pressure 111/71 111/71 118/74 Pulse Oximetry 99 99 98 09/27/18 01:00 09/27/18 02:00 09/27/18 03:00 Temperature Pulse Rate 75 68 66 Respiratory Rate 16 14 14 Blood Pressure 127/74 118/76 125/79 Pulse Oximetry 98 100 99 09/27/18 04:00 09/27/18 05:00 09/27/18 06:00 Temperature 98.7 F Pulse Rate 68 67 71 Respiratory Rate 14 14 12 Blood Pressure 127/83 126/78 145/88 H Pulse Oximetry 98 100 100 Intake & Output 09/26/18 09/27/18 09/27/18 18:59 06:59 18:59 Intake Total 1048.6 / 1048.6 1400 / 1400 Output Total 400 / 400 650 / 650 Balance 648.6 / 648.6 750 / 750 Weight 62 kg 62.3 kg Intake: IV 1048.6 / 1048.6 1000 / 1000 NS Inj 1,000 ML @ 70 mls/hr IV. 1000 / 1000 CONT .[id number] [facility] Rx#:[id number] Activase Drip 48.6 MG In Bag/ 48.6 / 48.6 Syringe 1 EACH @ 48.6 mls/hr IV .SIG ONCE ONE Rx#:[id number] NS Inj 1,000 ML @ Wide Open IV. 1000 / 1000 SIG BOLUS ONE Rx#:[id number] Oral 400 / 400 Output: Urine 400 / 400 650 / 650 Other: # Voids 1 Weight On Admission 62 kg Narrative: GENERAL: in NAD, SKIN: Warm and dry. HEAD: Atraumatic. Normocephalic. EYES: Pupils equal and round. No scleral icterus. ENT: No nasal bleeding or discharge. NECK: Trachea midline. No JVD. CARDIOVASCULAR: Regular rate and rhythm. RESPIRATORY: No accessory muscle use. GASTROINTESTINAL: Abdomen soft, non-tender, nondistended. MUSCULOSKELETAL: Extremities without clubbing, cyanosis, or edema. NEUROLOGICAL: Awake alert oriented x3, mildly dysarthric speech, slightly reduced left nasolabial fold, mild dystaxia strength 5- out of 5 PSYCHIATRIC: Calm pleasant - Constitutional no acute distress - Routine HEENT Exam Head: Present: normocephalic Eye: Present: EOMI Objective Laboratory Results - last 24 hr 09/26/18 09/26/18 09/26/18 10:34 10:37 10:37 WBC 4.6 RBC 3.88 L Hgb 13.7 POC Hgb (Calc) Hct 39.4 POC Hct MCV 101.4 H MCH 35.2 H MCHC 34.7 RDW 20.2 H Plt Count 120 L MPV 8.1 Neut % (Auto) 47.9 Lymph % (Auto) 37.1 [facility] [facility] % (Auto) 12.3 H Eos % (Auto) 1.5 Baso % (Auto) 1.2 Neut # (Auto) 2.2 Lymph # (Auto) 1.7 [facility] # (Auto) 0.6 Eos # (Auto) 0.1 Baso # (Auto) 0.1 WBC Differential . Differential Comment Auto diff final PT 9.5 L INR 0.9 APTT 28.0 POC Sodium Sodium POC Potassium Potassium POC Chloride Chloride Carbon Dioxide Anion Gap POC BUN BUN Creatinine POC Creatinine Estimated GFR POC Glucose 88 Random Glucose Hemoglobin A1c Calcium Total Bilirubin AST ALT Alkaline Phosphatase Total Creatine Kinase Troponin I Total Protein Albumin Triglycerides Cholesterol LDL Cholesterol, Calc HDL Cholesterol Cholesterol/HDL Ratio Urine Color Urine Clarity Urine pH Ur Specific [place] Urine Protein Urine Glucose (UA) Urine Ketones Urine Occult Blood Urine Nitrate Urine Bilirubin Urine Urobilinogen Ur Leukocyte Esterase Ur Squamous Epith Cells Micro UA Comment Ur Microscopic Review Urine Culture Comments Urine Opiates Screen Ur Barbiturates Screen Ur Amphetamines Screen U Benzodiazepines Scrn Urine Cocaine Screen U Cannabinoids Screen Serum Alcohol 09/26/18 09/26/18 09/26/18 10:37 10:37 10:37 WBC RBC Hgb POC Hgb (Calc) 13.9 Hct POC Hct 41.0 MCV MCH MCHC RDW Plt Count MPV Neut % (Auto) Lymph % (Auto) [facility] [facility] % (Auto) Eos % (Auto) Baso % (Auto) Neut # (Auto) Lymph # (Auto) [facility] # (Auto) Eos # (Auto) Baso # (Auto) WBC Differential Differential Comment PT INR APTT POC Sodium 140 Sodium 140 POC Potassium 4.0 Potassium 4.0 POC Chloride 101 L Chloride 107 Carbon Dioxide 21.6 Anion Gap 11 POC BUN Less than 3 L BUN 4 L Creatinine 0.62 POC Creatinine 0.9 Estimated GFR Greater than 89 POC Glucose 86 Random Glucose 78 Hemoglobin A1c 4.7 Calcium 7.9 L Total Bilirubin 0.8 AST 128 H ALT 74 Alkaline Phosphatase 59 Total Creatine Kinase 92 Troponin I Less than 0.02 L Total Protein 7.1 Albumin 3.6 Triglycerides Cholesterol LDL Cholesterol, Calc HDL Cholesterol Cholesterol/HDL Ratio Urine Color Urine Clarity Urine pH Ur Specific [place] Urine Protein Urine Glucose (UA) Urine Ketones Urine Occult Blood Urine Nitrate Urine Bilirubin Urine Urobilinogen Ur Leukocyte Esterase Ur Squamous Epith Cells Micro UA Comment Ur Microscopic Review Urine Culture Comments Urine Opiates Screen Ur Barbiturates Screen Ur Amphetamines Screen U Benzodiazepines Scrn Urine Cocaine Screen U Cannabinoids Screen Serum Alcohol 344 H 09/26/18 09/26/18 09/27/18 11:09 11:09 06:00 WBC RBC Hgb POC Hgb (Calc) Hct POC Hct MCV MCH MCHC RDW Plt Count MPV Neut % (Auto) Lymph % (Auto) [facility] % (Auto) Eos % (Auto) Baso % (Auto) Neut # (Auto) Lymph # (Auto) [facility] # (Auto) Eos # (Auto) Baso # (Auto) WBC Differential Differential Comment PT INR APTT POC Sodium Sodium 139 POC Potassium Potassium 4.1 POC Chloride Chloride 106 Carbon Dioxide 27.9 Anion Gap 5 POC BUN BUN 7 Creatinine 0.61 POC Creatinine Estimated GFR Greater than 89 POC Glucose Random Glucose 93 Hemoglobin A1c Calcium 8.4 L Total Bilirubin AST ALT Alkaline Phosphatase Total Creatine Kinase Troponin I Total Protein Albumin Triglycerides 45 Cholesterol 208 H LDL Cholesterol, Calc 103 H HDL Cholesterol 95.6 H Cholesterol/HDL Ratio 2.17 Urine Color Straw Urine Clarity Clear Urine pH 6.0 Ur Specific [place] 1.006 Urine Protein Negative Urine Glucose (UA) Negative Urine Ketones Negative Urine Occult Blood Negative Urine Nitrate Negative Urine Bilirubin Negative Urine Urobilinogen Less than 2 Ur Leukocyte Esterase Negative Ur Squamous Epith Cells <1 Micro UA Comment Culture not ind Ur Microscopic Review Not Reportable Urine Culture Comments Culture not ind Urine Opiates Screen Neg Ur Barbiturates Screen Neg Ur Amphetamines Screen Neg U Benzodiazepines Scrn Neg Urine Cocaine Screen Neg U Cannabinoids Screen Neg Serum Alcohol 09/27/18 06:00 WBC 3.7 L RBC 4.22 L Hgb 14.5 POC Hgb (Calc) Hct 43.4 POC Hct MCV 102.9 H MCH 34.4 H MCHC 33.5 RDW 20.7 H Plt Count 106 L MPV 8.3 Neut % (Auto) 59.6 Lymph % (Auto) 26.7 [facility] % (Auto) 10.9 H Eos % (Auto) 1.6 Baso % (Auto) 1.2 Neut # (Auto) 2.2 Lymph # (Auto) 1.0 [facility] # (Auto) 0.4 Eos # (Auto) 0.1 Baso # (Auto) 0.0 WBC Differential . Differential Comment Auto diff final PT INR APTT POC Sodium Sodium POC Potassium Potassium POC Chloride Chloride Carbon Dioxide Anion Gap POC BUN BUN Creatinine POC Creatinine Estimated GFR POC Glucose Random Glucose Hemoglobin A1c Calcium Total Bilirubin AST ALT Alkaline Phosphatase Total Creatine Kinase Troponin I Total Protein Albumin Triglycerides Cholesterol LDL Cholesterol, Calc HDL Cholesterol Cholesterol/HDL Ratio Urine Color Urine Clarity Urine pH Ur Specific [place] Urine Protein Urine Glucose (UA) Urine Ketones Urine Occult Blood Urine Nitrate Urine Bilirubin Urine Urobilinogen Ur Leukocyte Esterase Ur Squamous Epith Cells Micro UA Comment Ur Microscopic Review Urine Culture Comments Urine Opiates Screen Ur Barbiturates Screen Ur Amphetamines Screen U Benzodiazepines Scrn Urine Cocaine Screen U Cannabinoids Screen Serum Alcohol Review/Management - Diagnosis (1) Acute ischemic stroke Code(s): I63.9 - Cerebral infarction, unspecified Status: Acute Current Visit: Yes (2) Tobacco use Code(s): Z72.0 - Tobacco use Status: Acute Current Visit: Yes (3) Alcohol abuse with alcohol-induced disorder Code(s): F10.19 - Alcohol abuse with unspecified alcohol-induced disorder Status: Chronic Current Visit: No (4) HTN (hypertension) Code(s): I10 - Essential (primary) hypertension Status: Chronic Current Visit: Yes - Review/Management Plan: mri brain negative for infarct; resolved stroke vs exacerbation s/p iv tpa Persistent tobacco use despite understanding the risks of recurrent stroke, heart attack, cancer Recommendation start aspirin if repeat ct brain today negative for ich d./c planning from neuro ok for 5th floor with tele tobacco cessation/lipid/bp control compliance with medical f/u's Discussed with RN
--- NOTE | 2018-09-27 12:25 | P.PNFP ---
Subjective Interval history: No acute events overnight. Patient seen and examined this AM. Remains afebrile, vitals stable. Denies new focal neuro deficit. Denies fevers, CP, dyspnea. Endorses struggling with depressive symptoms, also reports it has almost been one year from when his . Denies suicidal or homicidal thoughts. He otherwise does not express specific complaints or concerns. <Ambrosio Soto - 09/27/18 12:24> Results - Labs Result diagrams: 09/27/18 06:00 09/27/18 06:00 <José Rome - 09/27/18 13:41> Abnormal lab results 09/27/18 09/27/18 Range/Units 06:00 06:00 WBC 3.7 L (4.0-11.0) th/mm3 RBC 4.22 L (4.50-5.90) mil/mm3 MCV 102.9 H (80.0-100.0) fL MCH 34.4 H (27.0-34.0) pg RDW 20.7 H (11.6-17.2) % Plt Count 106 L (150-450) th/mm3 [place] % (Auto) 10.9 H (0.0-8.0) % Calcium 8.4 L (8.5-10.1) mg/dL Cholesterol 208 H (120-200) mg/dL LDL Cholesterol, Calc 103 H (0-99) mg/dL HDL Cholesterol 95.6 H (40.0-60.0) mg/dL Short CBC 09/27/18 Range/Units 06:00 WBC 3.7 L (4.0-11.0) th/mm3 Hgb 14.5 (13.0-17.0) gm/dL Hct 43.4 (39.0-51.0) % Plt Count 106 L (150-450) th/mm3 [facility] 09/27/18 06:00 Sodium 139 Potassium 4.1 Chloride 106 Carbon Dioxide 27.9 BUN 7 Creatinine 0.61 Calcium 8.4 L <José Rome - 09/27/18 13:41> Abnormal lab results 09/26/18 09/27/18 09/27/18 Range/Units 10:37 06:00 06:00 WBC 3.7 L (4.0-11.0) th/mm3 RBC 4.22 L (4.50-5.90) mil/mm3 MCV 102.9 H (80.0-100.0) fL MCH 34.4 H (27.0-34.0) pg RDW 20.7 H (11.6-17.2) % Plt Count 106 L (150-450) th/mm3 [place] % (Auto) 10.9 H (0.0-8.0) % POC Chloride 101 L (102-111) mmol/L POC BUN Less than 3 L (5-21) mg/dL Calcium 8.4 L (8.5-10.1) mg/dL Cholesterol 208 H (120-200) mg/dL LDL Cholesterol, Calc 103 H (0-99) mg/dL HDL Cholesterol 95.6 H (40.0-60.0) mg/dL Serum Alcohol 344 H (0-5) mg/dL Short CBC 09/27/18 Range/Units 06:00 WBC 3.7 L (4.0-11.0) th/mm3 Hgb 14.5 (13.0-17.0) gm/dL Hct 43.4 (39.0-51.0) % Plt Count 106 L (150-450) th/mm3 BMP 09/27/18 06:00 Sodium 139 Potassium 4.1 Chloride 106 Carbon Dioxide 27.9 BUN 7 Creatinine 0.61 Calcium 8.4 L <Ambrosio Soto - 09/27/18 12:24> - Imaging Impressions Head MRI 09/26/18 00:00 CONCLUSION: 1. No acute intracranial abnormality. 2. Prior infarctions involving the right parietal lobe and left frontal lobe. These are long-term stable. Head CT 09/27/18 11:33 CONCLUSION: 1. Stable CT scan of the head with old infarct right sylvian region. 2. No parenchymal hemorrhage. . <José Rome - 09/27/18 13:41> Impressions Head MRI 09/26/18 00:00 CONCLUSION: 1. No acute intracranial abnormality. 2. Prior infarctions involving the right parietal lobe and left frontal lobe. These are long-term stable. <Ambrosio Soto - 09/27/18 12:24> Physical Exam Vital signs: Vital Signs 09/26/18 13:45 09/26/18 14:00 09/26/18 14:02 Temperature 97.9 F Pulse Rate 64 74 66 Respiratory Rate 18 20 18 Blood Pressure 118/78 118/72 118/72 Pulse Oximetry 99 100 100 09/26/18 14:15 09/26/18 14:30 09/26/18 14:45 Temperature Pulse Rate 76 68 80 Respiratory Rate 19 17 25 H Blood Pressure 132/81 118/76 128/82 Pulse Oximetry 100 100 100 09/26/18 15:00 09/26/18 15:15 09/26/18 15:30 Temperature Pulse Rate 66 70 72 Respiratory Rate 17 15 16 Blood Pressure 114/74 106/70 109/70 Pulse Oximetry 99 99 100 09/26/18 16:00 09/26/18 16:30 09/26/18 17:00 Temperature 97.9 F Pulse Rate 77 72 74 Respiratory Rate 20 18 17 Blood Pressure 105/67 108/66 113/67 Pulse Oximetry 94 L 100 100 09/26/18 17:30 09/26/18 18:18 09/26/18 18:25 Temperature Pulse Rate 79 79 80 Respiratory Rate 19 18 17 Blood Pressure 102/60 135/79 Pulse Oximetry 99 98 99 09/26/18 18:30 09/26/18 18:45 09/26/18 19:00 Temperature Pulse Rate 86 82 78 Respiratory Rate 19 16 18 Blood Pressure 143/85 H 142/73 H 108/71 Pulse Oximetry 100 100 99 09/26/18 19:15 09/26/18 19:17 09/26/18 19:30 Temperature Pulse Rate 78 83 Respiratory Rate 18 17 Blood Pressure 111/66 118/70 Pulse Oximetry 99 98 99 09/26/18 20:00 09/26/18 21:00 09/26/18 22:00 Temperature Pulse Rate 77 77 74 Respiratory Rate 18 18 16 Blood Pressure 107/65 117/65 127/70 Pulse Oximetry 99 98 99 09/26/18 23:00 09/27/18 00:00 09/27/18 00:07 Temperature 98.4 F Pulse Rate 72 71 73 Respiratory Rate 17 15 14 Blood Pressure 111/71 111/71 118/74 Pulse Oximetry 99 99 98 09/27/18 01:00 09/27/18 02:00 09/27/18 03:00 Temperature Pulse Rate 75 68 66 Respiratory Rate 16 14 14 Blood Pressure 127/74 118/76 125/79 Pulse Oximetry 98 100 99 09/27/18 04:00 09/27/18 05:00 09/27/18 06:00 Temperature 98.7 F Pulse Rate 68 67 71 Respiratory Rate 14 14 12 Blood Pressure 127/83 126/78 145/88 H Pulse Oximetry 98 100 100 09/27/18 08:00 09/27/18 09:00 Temperature Pulse Rate 75 Respiratory Rate Blood Pressure Pulse Oximetry 98 Intake & Output 09/26/18 09/27/18 09/27/18 18:59 06:59 18:59 Intake Total 1048.6 / 1048.6 1400 / 1400 Output Total 400 / 400 650 / 650 Balance 648.6 / 648.6 750 / 750 Weight 62 kg 62.3 kg Intake: IV 1048.6 / 1048.6 1000 / 1000 NS Inj 1,000 ML @ 70 mls/hr IV. 1000 / 1000 CONT .[id number] [facility] Rx#:[id number] Activase Drip 48.6 MG In Bag/ 48.6 / 48.6 Syringe 1 EACH @ 48.6 mls/hr IV .SIG ONCE ONE Rx#:[id number] NS Inj 1,000 ML @ Wide Open IV. 1000 / 1000 SIG BOLUS ONE Rx#:[id number] Oral 400 / 400 Output: Urine 400 / 400 650 / 650 Other: # Voids 1 Weight On Admission 62 kg <José Rome - 09/27/18 13:41> Vital Signs 09/26/18 12:45 09/26/18 13:00 09/26/18 13:21 Temperature 97.8 F 97.8 F Pulse Rate 78 83 69 Respiratory Rate 16 16 20 Blood Pressure 103/68 108/77 Pulse Oximetry 99 91 L 09/26/18 13:30 09/26/18 13:45 09/26/18 14:00 Temperature 97.9 F Pulse Rate 65 64 74 Respiratory Rate 18 18 20 Blood Pressure 112/72 118/78 118/72 Pulse Oximetry 93 L 99 100 09/26/18 14:02 09/26/18 14:15 09/26/18 14:30 Temperature Pulse Rate 66 76 68 Respiratory Rate 18 19 17 Blood Pressure 118/72 132/81 118/76 Pulse Oximetry 100 100 100 09/26/18 14:45 09/26/18 15:00 09/26/18 15:15 Temperature Pulse Rate 80 66 70 Respiratory Rate 25 H 17 15 Blood Pressure 128/82 114/74 106/70 Pulse Oximetry 100 99 99 09/26/18 15:30 09/26/18 16:00 09/26/18 16:30 Temperature 97.9 F Pulse Rate 72 77 72 Respiratory Rate 16 20 18 Blood Pressure 109/70 105/67 108/66 Pulse Oximetry 100 94 L 100 09/26/18 17:00 09/26/18 17:30 09/26/18 18:18 Temperature Pulse Rate 74 79 79 Respiratory Rate 17 19 18 Blood Pressure 113/67 102/60 Pulse Oximetry 100 99 98 09/26/18 18:25 09/26/18 18:30 09/26/18 18:45 Temperature Pulse Rate 80 86 82 Respiratory Rate 17 19 16 Blood Pressure 135/79 143/85 H 142/73 H Pulse Oximetry 99 100 100 09/26/18 19:00 09/26/18 19:15 09/26/18 19:17 Temperature Pulse Rate 78 78 Respiratory Rate 18 18 Blood Pressure 108/71 111/66 Pulse Oximetry 99 99 98 09/26/18 19:30 09/26/18 20:00 09/26/18 21:00 Temperature Pulse Rate 83 77 77 Respiratory Rate 17 18 18 Blood Pressure 118/70 107/65 117/65 Pulse Oximetry 99 99 98 09/26/18 22:00 09/26/18 23:00 09/27/18 00:00 Temperature 98.4 F Pulse Rate 74 72 71 Respiratory Rate 16 17 15 Blood Pressure 127/70 111/71 111/71 Pulse Oximetry 99 99 99 09/27/18 00:07 09/27/18 01:00 09/27/18 02:00 Temperature Pulse Rate 73 75 68 Respiratory Rate 14 16 14 Blood Pressure 118/74 127/74 118/76 Pulse Oximetry 98 98 100 09/27/18 03:00 09/27/18 04:00 09/27/18 05:00 Temperature 98.7 F Pulse Rate 66 68 67 Respiratory Rate 14 14 14 Blood Pressure 125/79 127/83 126/78 Pulse Oximetry 99 98 100 09/27/18 06:00 09/27/18 08:00 09/27/18 09:00 Temperature Pulse Rate 71 75 Respiratory Rate 12 Blood Pressure 145/88 H Pulse Oximetry 100 98 Intake & Output 09/26/18 09/27/18 09/27/18 18:59 06:59 18:59 Intake Total 1048.6 / 1048.6 1400 / 1400 Output Total 400 / 400 650 / 650 Balance 648.6 / 648.6 750 / 750 Weight 62 kg 62.3 kg Intake: IV 1048.6 / 1048.6 1000 / 1000 NS Inj 1,000 ML @ 70 mls/hr IV. 1000 / 1000 CONT .[id number] [facility] Rx#:[id number] Activase Drip 48.6 MG In Bag/ 48.6 / 48.6 Syringe 1 EACH @ 48.6 mls/hr IV .SIG ONCE ONE Rx#:[id number] NS Inj 1,000 ML @ Wide Open IV. 1000 / 1000 SIG BOLUS ONE Rx#:[id number] Oral 400 / 400 Output: Urine 400 / 400 650 / 650 Other: # Voids 1 Weight On Admission 62 kg <ZackAmbrosio dominique - 09/27/18 12:24> Narrative: GENERAL: Lying comfortably in bed, NAD SKIN: Warm and dry. HEAD: Normocephalic. Atraumatic EYES: No scleral icterus. No injection or drainage. NECK: Supple, trachea midline. No JVD or lymphadenopathy. CARDIOVASCULAR: Regular rate and rhythm without murmurs, gallops, or rubs. RESPIRATORY: Breath sounds equal bilaterally. No accessory muscle use. GASTROINTESTINAL: Abdomen soft, non-tender, nondistended. MUSCULOSKELETAL: No cyanosis, or edema. No complaint of pain. BACK: Nontender without obvious deformity. No CVA tenderness. NEUROLOGICAL: Alert and oriented x3. Left sided facial weakness with minor facial droop but improved since admission; states light touch feels less on LUE and LLE; weakness in LLE on leg raise but again improved since admission. Increased range of motion of LUE. Mild dysarthria. <ZackAmbrosio dominique - 09/27/18 12:24> Assessment and Plan - Assessment (1) Acute ischemic stroke Code(s): I63.9 - Cerebral infarction, unspecified Status: Acute (2) HTN (hypertension) Code(s): I10 - Essential (primary) hypertension Status: Chronic (3) Alcohol abuse with alcohol-induced disorder Code(s): F10.19 - Alcohol abuse with unspecified alcohol-induced disorder Status: Chronic <José Rome - 09/27/18 13:41> (1) Acute ischemic stroke Code(s): I63.9 - Cerebral infarction, unspecified Status: Acute (2) HTN (hypertension) Code(s): I10 - Essential (primary) hypertension Status: Chronic (3) Alcohol abuse with alcohol-induced disorder Code(s): F10.19 - Alcohol abuse with unspecified alcohol-induced disorder Status: Chronic <BrittAmbrosio webster - 09/27/18 12:07> - Assessment and Plan 57 year old homeless male with PMHx alcohol dependence/abuse, hypotension, chronic neck and back pain, prostate problems and Hx of multiple CVAs s/p likely PFO closure by Dr Knight presents with sxs of acute ischemic CVA without neuroimaging showing CVA pathology and was given tPA in the ED. Acute CVA -Neurology consulted -s/p tPA in the ED per protocol -Repeat CT brain today [address] -Start aspirin if head CT is negative -Continue high intensity statin -2D echo showing normal LV systolic function with eEF of 55-60%, no regional wall motion abnormalities -Continue neuro checks -A1C 4.7 -Lipid profile showing hyperlipidemia, continue statin as above -PT/OT/ST; ST recommending mechanical soft and thin liquids -NS at 70 cc/hr -Will likely need PT at rehab, CM assisting with placement HTN -Allow to be permissively hypertensive to 180/100 for first 24-48 hours -Pt has no home antihypertensives -Consider starting Lisinopril on 09/28 if required -Continue to monitor vitals q4h Alcohol dependence/abuse with Hx of withdrawal sxs before -EtOH level 344 on admission -CIWA Depression -Started patient on sertraline 50 mg po daily -Discussed with patient the option to speak with a police matron while hospitalized here, or if needed a consultation with psychiatry however patient declined at this time -Will continue discussion with patient on the benefits of therapy as an outpatient -No SI or HI FEN/GI/PPx: -Fluids: IVF as above -Electrolytes: continue to monitor -Nutrition: Regular diet -GI: Protonix 40 mg daily -PPx: tPA as above; consider anticoagulation in 24-48 hours; b/l SCDs now <BrittAmbrosio webster - 09/27/18 12:24> - Attending Attestation The exam, history, and the medical decision-making described in the above note were completed with the assistance of the resident physician. I reviewed and agree with the findings presented. I attest that I had a [id number] encounter with the patient on the same day, and personally performed and documented my assessment and findings in the medical record. Agree with above, today LUE and LLE strength increased from 3/5 to 4/5 on my exam, facial droop improved. MRI showing only old infarct, nothing acute. he is depressed but not suicidal today. Stroke averted agree with above with the exception of will increase to high intensity statin today start asa81 if CThead neg 24hrs post tpa and transfer to floor after that. [facility] possible d/c tomorrow <José Rome - 09/27/18 13:41>
--- NOTE | 2018-09-27 12:35 | CT ---
EXAM DATE: 09/27/2018 12:32 PM EST AGE/SEX: 57 years / Male INDICATIONS: Post activase CLINICAL DATA: This is the patient's initial encounter. Patient reports that signs and symptoms have been present for 1 day and indicates a pain score of 0/10. MEDICAL/SURGICAL HISTORY: Cerebrovascular disease. Chronic obstructive pulmonary disease. . hernia repair RADIATION DOSE: 66.34 CTDI (mGy) COMPARISON: [facility] – [place], CT HEAD W/O CONTRAST, 09/26/2018. . TECHNIQUE: CT of the head without contrast. Using automated exposure control and adjustment of the mA and/or kV according to patient size, radiation dose was kept as low as reasonably achievable to ob tain optimal diagnostic quality images. DICOM format image data is available electronically for revi ew and comparison. FINDINGS: Cerebrum: Again seen is the old infarct in the right sylvian region. Left hemisphere is unremarkable . There is no parenchymal hemorrhage. There are no extra-axial fluid collections appreciated. Posterior Fossa: The cerebellum and brainstem are intact. The 4th ventricle is midline. The cerebe llopontine angle is unremarkable. Extracranial: The visualized portion of the orbits is intact. Skull: The calvaria is intact. No evidence of skull fracture. CONCLUSION: 1. Stable CT scan of the head with old infarct right sylvian region. 2. No parenchymal hemorrhage. . Electronically signed by: Greg Pope MD 09/27/2018 12:34 PM EST
[2018-09-27] MEDS: Sertraline 50 MG Tablet PO SCH (14:56)
[2018-09-28 05:39] LABS: Baso % (Auto) 1.1 % (0.0-2.0); Eos # (Auto) 0.1 th/mm3 (0.0-0.4); Eos % (Auto) 2.7 % (0.0-4.0); Hematocrit 40.1 % (39.0-51.0); Hemoglobin 13.3 gm/dL (13.0-17.0); Lymph # (Auto) 1.2 th/mm3 (1.0-4.8); Lymph % (Auto) 33.3 % (9.0-44.0); Mean Corpuscular HGB Conc 33.2 % (32.0-36.0); Mean Corpuscular Hemoglobin 34.1 pg (27.0-34.0); Mean Corpuscular Volume 102.8 fL (80.0-100.0); Mean Platelet Volume 8.3 fL (7.0-11.0); Mono # (Auto) 0.5 th/mm3 (0.0-0.9); Mono % (Auto) 13.3 % (0.0-8.0); Neut # (Auto) 1.7 th/mm3 (1.8-7.7); Neut % (Auto) 49.6 % (16.0-70.0); Platelet Count 94 th/mm3 (150-450); Red Cell Distribution Width 19.4 % (11.6-17.2); White Blood Count 3.5 th/mm3 (4.0-11.0)
[2018-09-28 06:05] LABS: Anion Gap 6 meq/L (5-15); Blood Urea Nitrogen 8 mg/dL (7-18); Calcium 8.4 mg/dL (8.5-10.1); Carbon Dioxide 29.2 meq/L (21.0-32.0); Chloride 103 meq/L (98-107); Glomerular Filtration Rate Greater Than 89 mL/min (>89); Glucose,Random 92 mg/dL (74-106); Sodium 138 meq/L (136-145)
[2018-09-28 08:34] LABS: Platelet Morphology Normal (Normal)
--- NOTE | 2018-09-28 09:16 | P.PNFP ---
Subjective Interval history: No acute events overnight. Remains afebrile, vitals stable. Patient seen and examined this AM. Denies specific complaints or concerns this morning. Denies any new focal neuro deficits. Denies fevers, CP, dyspnea. <BrittjeevanvickyAmbrosio - 09/28/18 10:52> Results - Labs Result diagrams: 09/28/18 05:11 09/28/18 05:11 <José Rome - 09/28/18 11:36> Abnormal lab results 09/28/18 09/28/18 Range/Units 05:11 05:11 WBC 3.5 L (4.0-11.0) th/mm3 RBC 3.90 L (4.50-5.90) mil/mm3 MCV 102.8 H (80.0-100.0) fL MCH 34.1 H (27.0-34.0) pg RDW 19.4 H (11.6-17.2) % Plt Count 94 L (150-450) th/mm3 [place] % (Auto) 13.3 H (0.0-8.0) % Neut # (Auto) 1.7 L (1.8-7.7) th/mm3 Platelet Estimate Low L (Normal) Creatinine 0.53 L (0.60-1.30) mg/dL Calcium 8.4 L (8.5-10.1) mg/dL Short CBC 09/28/18 Range/Units 05:11 WBC 3.5 L (4.0-11.0) th/mm3 Hgb 13.3 (13.0-17.0) gm/dL Hct 40.1 (39.0-51.0) % Plt Count 94 L (150-450) th/mm3 [facility] 09/28/18 05:11 Sodium 138 Potassium 4.0 Chloride 103 Carbon Dioxide 29.2 BUN 8 Creatinine 0.53 L Calcium 8.4 L <José Rome - 09/28/18 11:36> Abnormal lab results 09/28/18 09/28/18 Range/Units 05:11 05:11 WBC 3.5 L (4.0-11.0) th/mm3 RBC 3.90 L (4.50-5.90) mil/mm3 MCV 102.8 H (80.0-100.0) fL MCH 34.1 H (27.0-34.0) pg RDW 19.4 H (11.6-17.2) % Plt Count 94 L (150-450) th/mm3 [place] % (Auto) 13.3 H (0.0-8.0) % Neut # (Auto) 1.7 L (1.8-7.7) th/mm3 Platelet Estimate Low L (Normal) Creatinine 0.53 L (0.60-1.30) mg/dL Calcium 8.4 L (8.5-10.1) mg/dL Short CBC 09/28/18 Range/Units 05:11 WBC 3.5 L (4.0-11.0) th/mm3 Hgb 13.3 (13.0-17.0) gm/dL Hct 40.1 (39.0-51.0) % Plt Count 94 L (150-450) th/mm3 BMP 09/28/18 05:11 Sodium 138 Potassium 4.0 Chloride 103 Carbon Dioxide 29.2 BUN 8 Creatinine 0.53 L Calcium 8.4 L <Ambrosio Soto - 09/28/18 09:16> - Imaging Impressions Head CT 09/27/18 11:33 CONCLUSION: 1. Stable CT scan of the head with old infarct right sylvian region. 2. No parenchymal hemorrhage. . <José Rome - 09/28/18 11:36> Impressions Head CT 09/27/18 11:33 CONCLUSION: 1. Stable CT scan of the head with old infarct right sylvian region. 2. No parenchymal hemorrhage. . <Ambrosio Soto - 09/28/18 10:52> Physical Exam Vital signs: Vital Signs 09/27/18 12:00 09/27/18 13:00 09/27/18 14:00 Temperature 98.2 F Pulse Rate 75 72 72 Respiratory Rate 15 14 19 Blood Pressure 113/71 114/75 134/78 Pulse Oximetry 98 97 99 09/27/18 15:00 09/27/18 16:00 09/27/18 17:00 Temperature 98.2 F Pulse Rate 75 74 68 Respiratory Rate 19 17 17 Blood Pressure 122/77 115/74 123/76 Pulse Oximetry 99 96 97 09/27/18 20:00 09/28/18 00:00 09/28/18 04:00 Temperature 98.5 F 98.3 F 98.1 F Pulse Rate 73 76 78 Respiratory Rate 18 20 20 Blood Pressure 121/71 124/76 120/72 Pulse Oximetry 98 100 100 09/28/18 08:00 09/28/18 09:00 Temperature 99.1 F Pulse Rate 75 Respiratory Rate 18 Blood Pressure 126/85 Pulse Oximetry 95 95 Intake & Output 09/27/18 09/28/18 09/28/18 18:59 06:59 18:59 Intake Total 660 / 660 Output Total 880 / 880 700 / 700 Balance -220 / -220 -700 / -700 Weight 63.7 kg Intake: Oral 660 / 660 Output: Urine 880 / 880 700 / 700 Other: Date of Last Bowel Movement 09/27/18 09/27/18 # Bowel Movements 1 <José Rome - 09/28/18 11:36> Vital Signs 09/27/18 09:59 09/27/18 10:00 09/27/18 11:00 Temperature Pulse Rate 79 77 75 Respiratory Rate 21 15 13 Blood Pressure 132/84 136/74 123/81 Pulse Oximetry 98 98 81 L 09/27/18 12:00 09/27/18 13:00 09/27/18 14:00 Temperature 98.2 F Pulse Rate 75 72 72 Respiratory Rate 15 14 19 Blood Pressure 113/71 114/75 134/78 Pulse Oximetry 98 97 99 09/27/18 15:00 09/27/18 16:00 09/27/18 17:00 Temperature 98.2 F Pulse Rate 75 74 68 Respiratory Rate 19 17 17 Blood Pressure 122/77 115/74 123/76 Pulse Oximetry 99 96 97 09/27/18 20:00 09/28/18 00:00 09/28/18 04:00 Temperature 98.5 F 98.3 F 98.1 F Pulse Rate 73 76 78 Respiratory Rate 18 20 20 Blood Pressure 121/71 124/76 120/72 Pulse Oximetry 98 100 100 09/28/18 08:00 09/28/18 09:00 Temperature 99.1 F Pulse Rate 75 Respiratory Rate 18 Blood Pressure 126/85 Pulse Oximetry 95 95 Intake & Output 09/27/18 09/28/18 09/28/18 18:59 06:59 18:59 Intake Total 660 / 660 Output Total 880 / 880 700 / 700 Balance -220 / -220 -700 / -700 Weight 63.7 kg Intake: Oral 660 / 660 Output: Urine 880 / 880 700 / 700 Other: Date of Last Bowel Movement 09/27/18 09/27/18 # Bowel Movements 1 <Ambrosio Soto - 09/28/18 09:16> Narrative: GENERAL: Lying comfortably in bed, NAD SKIN: Warm and dry. HEAD: Normocephalic. Atraumatic EYES: No scleral icterus. No injection or drainage. NECK: Supple, trachea midline. No JVD or lymphadenopathy. CARDIOVASCULAR: Regular rate and rhythm without murmurs, gallops, or rubs. RESPIRATORY: Breath sounds equal bilaterally. No accessory muscle use. GASTROINTESTINAL: Abdomen soft, non-tender, nondistended. MUSCULOSKELETAL: No cyanosis, or edema. No complaint of pain. BACK: Nontender without obvious deformity. No CVA tenderness. NEUROLOGICAL: Alert and oriented x3. EOMI. Mild dysarthria, speech seems improved from yesterday. Left sided facial weakness with minor facial droop. States light touch feels less on LUE and LLE compared to right side; 4/5 strength LUE, weakness in LLE also with 4/5 strength on leg raise but improved from admission. <Ambrosio Soto - 09/28/18 10:52> Assessment and Plan - Assessment (1) Acute ischemic stroke Code(s): I63.9 - Cerebral infarction, unspecified Status: Acute (2) HTN (hypertension) Code(s): I10 - Essential (primary) hypertension Status: Chronic (3) Alcohol abuse with alcohol-induced disorder Code(s): F10.19 - Alcohol abuse with unspecified alcohol-induced disorder Status: Chronic <José Rome - 09/28/18 11:36> (1) Acute ischemic stroke Code(s): I63.9 - Cerebral infarction, unspecified Status: Acute (2) HTN (hypertension) Code(s): I10 - Essential (primary) hypertension Status: Chronic (3) Alcohol abuse with alcohol-induced disorder Code(s): F10.19 - Alcohol abuse with unspecified alcohol-induced disorder Status: Chronic <Ambrosio Soto - 09/28/18 10:38> - Assessment and Plan 57 year old homeless male with PMHx alcohol dependence/abuse, hypotension, chronic neck and back pain, prostate problems and Hx of multiple CVAs s/p likely PFO closure by Dr Knight presented with sxs of acute ischemic CVA without neuroimaging showing CVA pathology. Acute CVA -Neurology consulted -s/p tPA in the ED per protocol -Repeat CT brain 09/27 [address] remained without acute changes as noted above -Continue aspirin -Continue high intensity statin -2D echo showing normal LV systolic function with eEF of 55-60%, no regional wall motion abnormalities -Continue neuro checks -A1C 4.7 -Lipid profile showing hyperlipidemia, continue statin as above -PT/OT/ST -NS at 70 cc/hr -Will likely need PT at rehab, CM assisting with placement HTN -Allow to be permissively hypertensive to 180/100 for first 24-48 hours -BPs ranging 120s-140s/70s-80s past 24 hours -Pt has no home antihypertensives -Consider starting Lisinopril if required -Continue to monitor vitals q4h Alcohol dependence/abuse with Hx of withdrawal sxs before -EtOH level 344 on admission -CIWA protocol Depression -Started patient on sertraline 50 mg po daily -Discussed with patient again this morning the option to speak with a traffic supervisor while hospitalized here, patient declined at this time -DWPT the benefits of therapy as an outpatient -No SI or HI FEN/GI/PPx: -Fluids: IVF as above -Electrolytes: continue to monitor -Nutrition: Regular diet -GI: Protonix 40 mg daily -PPx: b/l SCDs, continue daily aspirin <Ambrosio Soto - 09/28/18 10:52> - Attending Attestation The exam, history, and the medical decision-making described in the above note were completed with the assistance of the resident physician. I reviewed and agree with the findings presented. I attest that I had a [id number] encounter with the patient on the same day, and personally performed and documented my assessment and findings in the medical record. Agree with above except not on IVF anymore. He was able to use his left hand to hold his plate while eating his breakfast with his right hand this AM. He has some decreased function but his weakness is definitely improved but definitely worse than his baseline after prior stroke. Diagnosis: Stroke averted Talked to him about making sure that he can get connected with the [facility]. on asa, atorvastatin, sertraline. may give b12 and folate as well Made referral for inpatient rehab [facility] if he can go there that is first choice, otherwise needs follow up with [facility] and outpatient therapies. <José Rome - 09/28/18 11:36>
[2018-09-28] MEDS: Sertraline 50 MG Tablet PO SCH (10:09)
[2018-09-28] MEDS: Folic Acid 1 MG Tablet PO SCH (14:45)
[2018-09-29 04:36] LABS: Eos # (Auto) 0.1 th/mm3 (0.0-0.4); Eos % (Auto) 2.5 % (0.0-4.0); Hematocrit 38.5 % (39.0-51.0); Hemoglobin 13.1 gm/dL (13.0-17.0); Lymph # (Auto) 1.3 th/mm3 (1.0-4.8); Lymph % (Auto) 34.2 % (9.0-44.0); Mean Corpuscular Hemoglobin 34.8 pg (27.0-34.0); Mean Corpuscular Volume 102.1 fL (80.0-100.0); Mean Platelet Volume 8.2 fL (7.0-11.0); Mono # (Auto) 0.5 th/mm3 (0.0-0.9); Neut # (Auto) 1.9 th/mm3 (1.8-7.7); Neut % (Auto) 49.3 % (16.0-70.0); Platelet Count 98 th/mm3 (150-450); Red Blood Count 3.77 mil/mm3 (4.50-5.90); Red Cell Distribution Width 19.7 % (11.6-17.2); White Blood Count 3.8 th/mm3 (4.0-11.0)
[2018-09-29 05:14] LABS: Anion Gap 7 meq/L (5-15); Blood Urea Nitrogen 10 mg/dL (7-18); Calcium 8.2 mg/dL (8.5-10.1); Carbon Dioxide 27.8 meq/L (21.0-32.0); Chloride 102 meq/L (98-107); Glomerular Filtration Rate Greater Than 89 mL/min (>89); Glucose,Random 98 mg/dL (74-106); Potassium 3.8 meq/L (3.5-5.1); Sodium 137 meq/L (136-145)
[2018-09-29] MEDS ORDERED: Folic Acid Inj 1 MG/0.2 ML VIAL IM ONE (07:58)
[2018-09-29 08:07] LABS: Platelet Morphology Normal (Normal)
[2018-09-29] MEDS: Folic Acid 1 MG Tablet PO SCH (08:30)
[2018-09-29] MEDS: Sertraline 50 MG Tablet PO SCH (08:30)
--- NOTE | 2018-09-29 09:56 | P.PNFP ---
Subjective Interval history: Patient seen and examined at bedside today. He was eating his breakfast during the examination. He reports that he is doing much better. He can transfer from the bed to his chair by himself. He uses a walker to ambulate to the bathroom with assistance. He has been working with physical therapy and occupational therapy. There are no [facility] beds at [facility], so the patient will not be able to go to rehab. He is however improving day by day. We will continue to monitor his improvement. I called physical therapy and asked them for a more specific recommendation in their documentation regarding the patient's safety to return to his [facility] community in the [facility]. He reports a cough but has started using incentive spirometer. He denies chest pain, shortness of breath, abdominal pain, diarrhea, nausea, vomiting. <Sandi Chandra - 09/29/18 10:50> Results - Labs Result diagrams: 09/29/18 04:10 09/29/18 04:10 <José Rome - 09/29/18 14:16> Abnormal lab results 09/29/18 09/29/18 Range/Units 04:10 04:10 WBC 3.8 L (4.0-11.0) th/mm3 RBC 3.77 L (4.50-5.90) mil/mm3 Hct 38.5 L (39.0-51.0) % MCV 102.1 H (80.0-100.0) fL MCH 34.8 H (27.0-34.0) pg RDW 19.7 H (11.6-17.2) % Plt Count 98 L (150-450) th/mm3 [place] % (Auto) 13.0 H (0.0-8.0) % Platelet Estimate Low L (Normal) Creatinine 0.53 L (0.60-1.30) mg/dL Calcium 8.2 L (8.5-10.1) mg/dL Short CBC 09/29/18 Range/Units 04:10 WBC 3.8 L (4.0-11.0) th/mm3 Hgb 13.1 (13.0-17.0) gm/dL Hct 38.5 L (39.0-51.0) % Plt Count 98 L (150-450) th/mm3 BMP 09/29/18 04:10 Sodium 137 Potassium 3.8 Chloride 102 Carbon Dioxide 27.8 BUN 10 Creatinine 0.53 L Calcium 8.2 L <José Rome - 09/29/18 14:16> Abnormal lab results 09/29/18 09/29/18 Range/Units 04:10 04:10 WBC 3.8 L (4.0-11.0) th/mm3 RBC 3.77 L (4.50-5.90) mil/mm3 Hct 38.5 L (39.0-51.0) % MCV 102.1 H (80.0-100.0) fL MCH 34.8 H (27.0-34.0) pg RDW 19.7 H (11.6-17.2) % Plt Count 98 L (150-450) th/mm3 [place] % (Auto) 13.0 H (0.0-8.0) % Platelet Estimate Low L (Normal) Creatinine 0.53 L (0.60-1.30) mg/dL Calcium 8.2 L (8.5-10.1) mg/dL Short CBC 09/29/18 Range/Units 04:10 WBC 3.8 L (4.0-11.0) th/mm3 Hgb 13.1 (13.0-17.0) gm/dL Hct 38.5 L (39.0-51.0) % Plt Count 98 L (150-450) th/mm3 BMP 09/29/18 04:10 Sodium 137 Potassium 3.8 Chloride 102 Carbon Dioxide 27.8 BUN 10 Creatinine 0.53 L Calcium 8.2 L <Sandi Chandra - 09/29/18 09:56> Physical Exam Vital signs: Vital Signs 09/28/18 16:00 09/28/18 20:00 09/29/18 00:00 Temperature 98.9 F 97.6 F 98.3 F Pulse Rate 70 84 69 Respiratory Rate 16 18 19 Blood Pressure 118/74 112/78 126/75 Pulse Oximetry 97 98 96 09/29/18 04:00 09/29/18 08:00 09/29/18 08:57 Temperature 97.8 F 97.4 F L Pulse Rate 67 65 Respiratory Rate 18 20 Blood Pressure 128/81 131/83 Pulse Oximetry 96 98 98 09/29/18 12:00 Temperature 98.5 F Pulse Rate 72 Respiratory Rate 20 Blood Pressure 117/70 Pulse Oximetry 98 Intake & Output 09/28/18 09/29/18 09/29/18 18:59 06:59 18:59 Output Total 1999 Balance -1999 Output: Urine 1999 Other: Date of Last Bowel Movement 09/27/18 09/28/18 09/28/18 <José Rome Benji - 09/29/18 14:16> Vital Signs 09/28/18 12:00 09/28/18 16:00 09/28/18 20:00 Temperature 98.6 F 98.9 F 97.6 F Pulse Rate 70 70 84 Respiratory Rate 16 16 18 Blood Pressure 108/67 118/74 112/78 Pulse Oximetry 100 97 98 09/29/18 00:00 09/29/18 04:00 09/29/18 08:00 Temperature 98.3 F 97.8 F 97.4 F L Pulse Rate 69 67 65 Respiratory Rate 19 18 20 Blood Pressure 126/75 128/81 131/83 Pulse Oximetry 96 96 98 09/29/18 08:57 Temperature Pulse Rate Respiratory Rate Blood Pressure Pulse Oximetry 98 Intake & Output 09/28/18 09/29/18 09/29/18 18:59 06:59 18:59 Output Total 1999 -1999 Output: Urine 1999 Other: Date of Last Bowel Movement 09/27/18 09/28/18 <Sandi Chandra - 09/29/18 09:56> Narrative: GENERAL: Sitting up in chair, eating breakfast,, NAD SKIN: Warm and dry. HEAD: Normocephalic. Atraumatic EYES: No scleral icterus. No injection or drainage. NECK: Supple, trachea midline. No JVD or lymphadenopathy. CARDIOVASCULAR: Regular rate and rhythm without murmurs, gallops, or rubs. RESPIRATORY: Breath sounds equal bilaterally. No accessory muscle use. MUSCULOSKELETAL: No cyanosis, or edema. No complaint of pain. NEUROLOGICAL: Alert and oriented x3. Still has some mild dysarthria but much improved even since yesterday. Moves all extremities. <Sandi Chandra - 09/29/18 10:50> Assessment and Plan - Assessment (1) Acute ischemic stroke Code(s): I63.9 - Cerebral infarction, unspecified Status: Acute (2) HTN (hypertension) Code(s): I10 - Essential (primary) hypertension Status: Chronic (3) Alcohol abuse with alcohol-induced disorder Code(s): F10.19 - Alcohol abuse with unspecified alcohol-induced disorder Status: Chronic <José Rome - 09/29/18 14:16> (1) Acute ischemic stroke Code(s): I63.9 - Cerebral infarction, unspecified Status: Acute (2) HTN (hypertension) Code(s): I10 - Essential (primary) hypertension Status: Chronic (3) Alcohol abuse with alcohol-induced disorder Code(s): F10.19 - Alcohol abuse with unspecified alcohol-induced disorder Status: Chronic <ChrisabundioSandi A - 09/29/18 10:50> - Assessment and Plan 57 year old homeless male with PMHx alcohol dependence/abuse, hypotension, chronic neck and back pain, prostate problems and Hx of multiple CVAs s/p likely PFO closure by Dr Knight presented with sxs of acute ischemic CVA without neuroimaging showing CVA pathology. Acute CVA Averted -Neurology consulted -s/p tPA in the ED per protocol -Repeat CT brain 09/[address] remained without acute changes as noted above -Continue aspirin -Continue high intensity statin -2D echo showing normal LV systolic function with eEF of 55-60%, no regional wall motion abnormalities -Continue neuro checks -A1C 4.7 -Lipid profile showing hyperlipidemia, continue statin as above -PT/OT/ST continued as an inpatient until safe to discharge. He is homeless and lives in the [facility] which complicates discharge. HTN -Allow to be permissively hypertensive to 180/100 for first 24-48 hours -BPs ranging 120s-140s/70s-80s past 24 hours -Pt has no home antihypertensives -Consider starting Lisinopril if required -Continue to monitor vitals q4h Alcohol dependence/abuse with Hx of withdrawal sxs before -EtOH level 344 on admission -CIWA protocol- last CIWA score 0 -Platelets stable at 98 Depression -Started patient on sertraline 50 mg po daily Hypocalcemia -Calcium 8.2 (Albumin 3.6 on admission) -Corrected calcium 8.5 -Calcium carbonate chew 500 mg ONCE FEN/GI/PPx: -Fluids: PO intake -Electrolytes: continue to monitor -Nutrition: Regular diet -GI: Protonix 40 mg daily -PPx: b/l SCDs, continue daily aspirin <Sandi Chandra - 09/29/18 10:50> - Attending Attestation The exam, history, and the medical decision-making described in the above note were completed with the assistance of the resident physician. I reviewed and agree with the findings presented. I attest that I had a [id number] encounter with the patient on the same day, and personally performed and documented my assessment and findings in the medical record. Seems to be doing a little better daily, he is using walker to get to bathroom without help under observation and he is eating using both arms. he is still unsteady on his feet without a walker. PT to continue to reassess. If no bonny beds for inpatient rehab will discharge to community with walker/ wheelchair as appropriate when deemed reasonably safe. Will look for PT recommendations today. <José Rome - 09/29/18 14:16>
[2018-09-30] MEDS: Sertraline 50 MG Tablet PO SCH (08:29)
[2018-09-30 08:30] LABS: Baso % (Auto) 0.8 % (0.0-2.0); Eos # (Auto) 0.1 th/mm3 (0.0-0.4); Hematocrit 40.4 % (39.0-51.0); Hemoglobin 13.3 gm/dL (13.0-17.0); Lymph # (Auto) 1.2 th/mm3 (1.0-4.8); Lymph % (Auto) 29.5 % (9.0-44.0); Mean Corpuscular Hemoglobin 34.3 pg (27.0-34.0); Mean Corpuscular Volume 104.1 fL (80.0-100.0); Mean Platelet Volume 8.6 fL (7.0-11.0); Mono # (Auto) 0.6 th/mm3 (0.0-0.9); Mono % (Auto) 15.8 % (0.0-8.0); Neut # (Auto) 2.1 th/mm3 (1.8-7.7); Neut % (Auto) 50.9 % (16.0-70.0); Platelet Count 123 th/mm3 (150-450); Red Blood Count 3.88 mil/mm3 (4.50-5.90); Red Cell Distribution Width 19.2 % (11.6-17.2); White Blood Count 4.1 th/mm3 (4.0-11.0)
[2018-09-30] MEDS: Folic Acid 1 MG Tablet PO SCH (08:30)
[2018-09-30 08:52] LABS: Anion Gap 8 meq/L (5-15); Blood Urea Nitrogen 10 mg/dL (7-18); Calcium 8.6 mg/dL (8.5-10.1); Chloride 102 meq/L (98-107); Glomerular Filtration Rate Greater Than 89 mL/min (>89); Glucose,Random 81 mg/dL (74-106); Potassium 3.8 meq/L (3.5-5.1); Sodium 140 meq/L (136-145)
--- NOTE | 2018-09-30 09:21 | P.PNFP ---
Subjective Interval history: Mr. Felder had no acute events overnight. This morning he is comfortable lying in bed, he has had a good appetite and is awaiting his breakfast this morning. He ambulated 200 feet with PT yesterday although he list to one side. We discussed medication compliance and patient states he will take medication on discharge. He knows we are trying to get Medicaid approved which may take 30 days so we will try and give him enough medications to bridge until that occurs. He is also working on disability right now, but has no means of income. He believes history he is regaining most of his left upper and lower limb function but still with some weakness. Denies chest pain, shortness of breath, nausea, vomiting, diarrhea, abdominal pain, or leg pain. <Javier Olivo III H - 09/30/18 09:21> Results - Labs Result diagrams: 09/30/18 06:45 09/30/18 06:45 <José Rome - 09/30/18 11:15> Abnormal lab results 09/30/18 Range/Units 06:45 RBC 3.88 L (4.50-5.90) mil/mm3 MCV 104.1 H (80.0-100.0) fL MCH 34.3 H (27.0-34.0) pg RDW 19.2 H (11.6-17.2) % Plt Count 123 L (150-450) th/mm3 [place] % (Auto) 15.8 H (0.0-8.0) % Short CBC 09/30/18 Range/Units 06:45 WBC 4.1 (4.0-11.0) th/mm3 Hgb 13.3 (13.0-17.0) gm/dL Hct 40.4 (39.0-51.0) % Plt Count 123 L (150-450) th/mm3 [facility] 09/30/18 06:45 Sodium 140 Potassium 3.8 Chloride 102 Carbon Dioxide 30.0 BUN 10 Creatinine 0.62 Calcium 8.6 <José Rome - 09/30/18 11:15> Abnormal lab results 09/30/18 Range/Units 06:45 RBC 3.88 L (4.50-5.90) mil/mm3 MCV 104.1 H (80.0-100.0) fL MCH 34.3 H (27.0-34.0) pg RDW 19.2 H (11.6-17.2) % Plt Count 123 L (150-450) th/mm3 [place] % (Auto) 15.8 H (0.0-8.0) % Short CBC 09/30/18 Range/Units 06:45 WBC 4.1 (4.0-11.0) th/mm3 Hgb 13.3 (13.0-17.0) gm/dL Hct 40.4 (39.0-51.0) % Plt Count 123 L (150-450) th/mm3 [facility] 09/30/18 06:45 Sodium 140 Potassium 3.8 Chloride 102 Carbon Dioxide 30.0 BUN 10 Creatinine 0.62 Calcium 8.6 <Javier Olivo III H - 09/30/18 09:21> Physical Exam Vital signs: Vital Signs 09/29/18 12:00 09/29/18 20:00 09/30/18 00:00 Temperature 98.5 F 98.4 F 97.3 F L Pulse Rate 72 67 73 Respiratory Rate 20 18 20 Blood Pressure 117/70 116/63 116/69 Pulse Oximetry 98 99 98 09/30/18 04:00 09/30/18 08:00 Temperature 98.0 F 97.5 F L Pulse Rate 67 68 Respiratory Rate 18 16 Blood Pressure 129/71 118/71 Pulse Oximetry 98 98 Intake & Output 09/29/18 09/30/18 09/30/18 18:59 06:59 18:59 Intake Total 1800 / 1800 476 / 476 Output Total 1400 / 1400 900 / 900 Balance 400 / 400 -424 / -424 Weight 60 kg Intake: Oral 1800 / 1800 476 / 476 Output: Urine 1400 / 1400 900 / 900 Other: Date of Last Bowel Movement 09/28/18 # Bowel Movements 1 <José Rome K - 09/30/18 11:15> Vital Signs 09/29/18 12:00 09/29/18 20:00 09/30/18 00:00 Temperature 98.5 F 98.4 F 97.3 F L Pulse Rate 72 67 73 Respiratory Rate 20 18 20 Blood Pressure 117/70 116/63 116/69 Pulse Oximetry 98 99 98 09/30/18 04:00 09/30/18 08:00 Temperature 98.0 F 97.5 F L Pulse Rate 67 68 Respiratory Rate 18 16 Blood Pressure 129/71 118/71 Pulse Oximetry 98 98 Intake & Output 09/29/18 09/30/18 09/30/18 18:59 06:59 18:59 Intake Total 1800 / 1800 476 / 476 Output Total 1400 / 1400 900 / 900 Balance 400 / 400 -424 / -424 Weight 60 kg Intake: Oral 1800 / 1800 476 / 476 Output: Urine 1400 / 1400 900 / 900 Other: Date of Last Bowel Movement 09/28/18 # Bowel Movements 1 <Javier Olivo III - 09/30/18 09:21> Narrative: GENERAL: Lying in bed in NAD. SKIN: Warm and dry. No rash or lesions. HEAD: Normocephalic. Atraumatic. MMM. EYES: No scleral icterus. No injection or drainage. NECK: Supple, trachea midline. No JVD or lymphadenopathy. CARDIOVASCULAR: Regular rate and rhythm without murmurs, gallops, or rubs. RESPIRATORY: Breath sounds equal bilaterally. No accessory muscle use. No wheeze, rales or rhonchi. MUSCULOSKELETAL: No cyanosis, or edema. No complaint of pain. NEUROLOGICAL: Alert and oriented x3. Dysarthria pretty much resolved. Moves all extremities. LUE 4/5 and LLE 3+/5. <Javier Olivo III - 09/30/18 09:21> Assessment and Plan - Assessment (1) Acute ischemic stroke Code(s): I63.9 - Cerebral infarction, unspecified Status: Acute (2) HTN (hypertension) Code(s): I10 - Essential (primary) hypertension Status: Chronic (3) Alcohol abuse with alcohol-induced disorder Code(s): F10.19 - Alcohol abuse with unspecified alcohol-induced disorder Status: Chronic (4) Macrocytosis without anemia Code(s): D75.89 - Other specified diseases of blood and blood-forming organs Status: Chronic <José Rome - 09/30/18 11:15> (1) Acute ischemic stroke Code(s): I63.9 - Cerebral infarction, unspecified Status: Acute (2) HTN (hypertension) Code(s): I10 - Essential (primary) hypertension Status: Chronic (3) Alcohol abuse with alcohol-induced disorder Code(s): F10.19 - Alcohol abuse with unspecified alcohol-induced disorder Status: Chronic (4) Macrocytosis without anemia Code(s): D75.89 - Other specified diseases of blood and blood-forming organs Status: Chronic <Pallavi REINAJavier H - 09/30/18 09:06> - Assessment and Plan 57 year old homeless male with PMHx alcohol dependence/abuse, hypotension, chronic neck and back pain, prostate problems and Hx of multiple CVAs s/p likely PFO closure by Dr Knight presented with sxs of acute ischemic CVA without neuroimaging showing CVA pathology. Acute CVA Averted -Neurology consulted -s/p tPA in the ED per protocol -Repeat CT brain 09/27 [address] remained without acute changes as noted above -Continue aspirin -Continue high intensity statin -2D echo showing normal LV systolic function with eEF of 55-60%, no regional wall motion abnormalities -Continue neuro checks -A1C 4.7 -Lipid profile showing hyperlipidemia, continue statin as above -PT/OT/ST continued as an inpatient until safe to discharge. He is homeless and lives in the [facility] which complicates discharge. HTN - stable / well controlled -BPs ranging 110s-120s/60s-70s past 24 hours -Pt has no home antihypertensives -Pt has longstanding low BP; will treat if he becomes symptomatic -Monitor VS Alcohol dependence/abuse with Hx of withdrawal sxs before - resolved -EtOH level 344 on admission -CIWA discontinued; pt has not shown withdrawal sxs -Platelets stable and improving at 123 Depression - stable -Started patient on sertraline 50 mg po daily Hypocalcemia - stable and resolved at 8.6 this morning -Calcium 8.2 (Albumin 3.6 on admission) -Corrected calcium 8.5 -Calcium carbonate chew 500 mg ONCE Macrocytosis w/o anemia, likely chronic and 2/2 EtOH abuse -MCV >101 since admission; H/H stable 13.3/40.4 -B12/Folate and thiamine daily -Follow CBC FEN/GI/PPx: -Fluids: PO intake -Electrolytes: continue to monitor -Nutrition: Regular diet -GI: Protonix 40 mg daily -PPx: b/l SCDs, continue daily aspirin Dispo: in 2-3 days when mobility improves and stable per PT/OT Pt SDW Dr Chandra <Javier Olivo III - 09/30/18 09:21> - Attending Attestation The exam, history, and the medical decision-making described in the above note were completed with the assistance of the resident physician. I reviewed and agree with the findings presented. I attest that I had a [id number] encounter with the patient on the same day, and personally performed and documented my assessment and findings in the medical record. Patient states today that he is probably about the same or maybe a little better. still somewhat unsteady but walking with cane. He worked with PT/Ot yesterday who are noting improvement. He has no complaints other than the unsteadiness. He is shaking less today and does not appear to be withdrawing. Will continue to work with therapies but he appears to have good rehab potential. will work towards safe discharge to his community. <José Rome - 09/30/18 11:15>
[2018-10-01] MEDS: Sertraline 50 MG Tablet PO SCH (08:23)
[2018-10-01] MEDS: Folic Acid 1 MG Tablet PO SCH (08:23)
[2018-10-01 09:41] LABS: Eos # (Auto) 0.1 th/mm3 (0.0-0.4); Eos % (Auto) 2.6 % (0.0-4.0); Hematocrit 41.5 % (39.0-51.0); Hemoglobin 14.1 gm/dL (13.0-17.0); Lymph # (Auto) 1.2 th/mm3 (1.0-4.8); Lymph % (Auto) 31.6 % (9.0-44.0); Mean Corpuscular Hemoglobin 34.8 pg (27.0-34.0); Mean Corpuscular Volume 102.5 fL (80.0-100.0); Mean Platelet Volume 8.4 fL (7.0-11.0); Mono # (Auto) 0.7 th/mm3 (0.0-0.9); Mono % (Auto) 19.6 % (0.0-8.0); Neut # (Auto) 1.7 th/mm3 (1.8-7.7); Neut % (Auto) 45.2 % (16.0-70.0); Platelet Count 144 th/mm3 (150-450); Red Blood Count 4.05 mil/mm3 (4.50-5.90); Red Cell Distribution Width 18.9 % (11.6-17.2); White Blood Count 3.7 th/mm3 (4.0-11.0)
[2018-10-01 10:03] LABS: Anion Gap 8 meq/L (5-15); Blood Urea Nitrogen 13 mg/dL (7-18); Calcium 8.9 mg/dL (8.5-10.1); Carbon Dioxide 27.3 meq/L (21.0-32.0); Chloride 101 meq/L (98-107); Glomerular Filtration Rate Greater Than 89 mL/min (>89); Glucose,Random 88 mg/dL (74-106); Potassium 4.1 meq/L (3.5-5.1); Sodium 136 meq/L (136-145)
--- NOTE | 2018-10-01 11:44 | P.PNFP ---
Subjective Interval history: Patient seen and examined at bedside this morning. Patient reports that he is doing better and feels like he is regaining strength in his left side. Physical therapy did not work with him yesterday. He did take a shower which made him feel better as well. He reports a cough. He denies chest pain, shortness of breath, abdominal pain, diarrhea, nausea or vomiting. <Sandi Chandra - 10/01/18 12:24> Results - Labs Result diagrams: 10/01/18 09:09 10/01/18 09:09 <José Rome - 10/01/18 13:30> Abnormal lab results 10/01/18 Range/Units 09:09 WBC 3.7 L (4.0-11.0) th/mm3 RBC 4.05 L (4.50-5.90) mil/mm3 MCV 102.5 H (80.0-100.0) fL MCH 34.8 H (27.0-34.0) pg RDW 18.9 H (11.6-17.2) % Plt Count 144 L (150-450) th/mm3 [place] % (Auto) 19.6 H (0.0-8.0) % Neut # (Auto) 1.7 L (1.8-7.7) th/mm3 Short CBC 10/01/18 Range/Units 09:09 WBC 3.7 L (4.0-11.0) th/mm3 Hgb 14.1 (13.0-17.0) gm/dL Hct 41.5 (39.0-51.0) % Plt Count 144 L (150-450) th/mm3 [facility] 10/01/18 09:09 Sodium 136 Potassium 4.1 Chloride 101 Carbon Dioxide 27.3 BUN 13 Creatinine 0.69 Calcium 8.9 <José Rome - 10/01/18 13:30> Abnormal lab results 10/01/18 Range/Units 09:09 WBC 3.7 L (4.0-11.0) th/mm3 RBC 4.05 L (4.50-5.90) mil/mm3 MCV 102.5 H (80.0-100.0) fL MCH 34.8 H (27.0-34.0) pg RDW 18.9 H (11.6-17.2) % Plt Count 144 L (150-450) th/mm3 [place] % (Auto) 19.6 H (0.0-8.0) % Neut # (Auto) 1.7 L (1.8-7.7) th/mm3 Short CBC 10/01/18 Range/Units 09:09 WBC 3.7 L (4.0-11.0) th/mm3 Hgb 14.1 (13.0-17.0) gm/dL Hct 41.5 (39.0-51.0) % Plt Count 144 L (150-450) th/mm3 [facility] 10/01/18 09:09 Sodium 136 Potassium 4.1 Chloride 101 Carbon Dioxide 27.3 BUN 13 Creatinine 0.69 Calcium 8.9 <Sandi Chandra - 10/01/18 11:43> Physical Exam Vital signs: Vital Signs 09/30/18 16:00 09/30/18 20:00 10/01/18 00:00 Temperature 97.9 F 98 F 97.8 F Pulse Rate 106 H 70 64 Respiratory Rate 16 18 18 Blood Pressure 132/65 108/70 120/69 Pulse Oximetry 100 98 98 10/01/18 04:00 10/01/18 08:00 10/01/18 12:00 Temperature 98.2 F 98.0 F 97.6 F Pulse Rate 61 65 76 Respiratory Rate 18 14 18 Blood Pressure 116/69 130/81 107/65 Pulse Oximetry 97 98 97 Intake & Output 09/30/18 10/01/18 10/01/18 18:59 06:59 18:59 Intake Total 480 / 480 Output Total 1700 / 1700 1600 / 1600 Balance -1700 / -1700 -1120 / -1120 Weight 60 kg Intake: Oral 480 / 480 Output: Urine 1700 / 1700 1600 / 1600 Other: Date of Last Bowel Movement 09/30/18 # Bowel Movements 1 <José Rome - 10/01/18 13:30> Vital Signs 09/30/18 12:00 09/30/18 16:00 09/30/18 20:00 Temperature 97.3 F L 97.9 F 98 F Pulse Rate 74 106 H 70 Respiratory Rate 14 16 18 Blood Pressure 106/71 132/65 108/70 Pulse Oximetry 97 100 98 10/01/18 00:00 10/01/18 04:00 10/01/18 08:00 Temperature 97.8 F 98.2 F 98.0 F Pulse Rate 64 61 65 Respiratory Rate 18 18 14 Blood Pressure 120/69 116/69 130/81 Pulse Oximetry 98 97 98 Intake & Output 09/30/18 10/01/18 10/01/18 18:59 06:59 18:59 Intake Total 480 / 480 Output Total 1700 / 1700 1600 / 1600 Balance -1700 / -1700 -1120 / -1120 Weight 60 kg Intake: Oral 480 / 480 Output: Urine 1700 / 1700 1600 / 1600 Other: Date of Last Bowel Movement 09/30/18 # Bowel Movements 1 <Sandi Chandra - 10/01/18 11:43> Narrative: GENERAL: Lying in bed in NAD. SKIN: Warm and dry. No rash or lesions. HEAD: Normocephalic. Atraumatic. MMM. EYES: No scleral icterus. No injection or drainage. CARDIOVASCULAR: Regular rate and rhythm without murmurs, gallops, or rubs. RESPIRATORY: Breath sounds equal bilaterally. No accessory muscle use. No wheeze, rales or rhonchi. MUSCULOSKELETAL: No cyanosis, or edema. No complaint of pain. NEUROLOGICAL: Alert and oriented x3. Moves all extremities. LUE 4/5 and LLE 4/ 5. <Sandi Chandra - 10/01/18 12:24> Assessment and Plan - Assessment (1) Acute ischemic stroke Code(s): I63.9 - Cerebral infarction, unspecified Status: Acute (2) HTN (hypertension) Code(s): I10 - Essential (primary) hypertension Status: Chronic (3) Alcohol abuse with alcohol-induced disorder Code(s): F10.19 - Alcohol abuse with unspecified alcohol-induced disorder Status: Chronic (4) Macrocytosis without anemia Code(s): D75.89 - Other specified diseases of blood and blood-forming organs Status: Chronic <José Rome - 10/01/18 13:30> (1) Acute ischemic stroke Code(s): I63.9 - Cerebral infarction, unspecified Status: Acute (2) HTN (hypertension) Code(s): I10 - Essential (primary) hypertension Status: Chronic (3) Alcohol abuse with alcohol-induced disorder Code(s): F10.19 - Alcohol abuse with unspecified alcohol-induced disorder Status: Chronic (4) Macrocytosis without anemia Code(s): D75.89 - Other specified diseases of blood and blood-forming organs Status: Chronic <Sandi Chandra - 10/01/18 12:16> - Assessment and Plan 57 year old homeless male with PMHx alcohol dependence/abuse, hypotension, chronic neck and back pain, prostate problems and Hx of multiple CVAs s/p likely PFO closure by Dr Knight presented with sxs of acute ischemic CVA without neuroimaging showing CVA pathology. Acute CVA Averted -Neurology consulted -s/p tPA in the ED per protocol -Repeat CT brain 09/[address] remained without acute changes as noted above -Continue aspirin -Continue high intensity statin -2D echo showing normal LV systolic function with eEF of 55-60%, no regional wall motion abnormalities -Continue neuro checks -A1C 4.7 -Lipid profile showing hyperlipidemia, continue statin as above -PT/OT/ST continued as an inpatient until safe to discharge. He is homeless and lives in the [facility] which complicates discharge. HTN - stable / well controlled -BPs ranging 110s-120s/60s-70s past 24 hours -Pt has no home antihypertensives -Pt has longstanding low BP; will treat if he becomes symptomatic -Monitor VS Alcohol dependence/abuse with Hx of withdrawal sxs before - resolved -EtOH level 344 on admission -CIWA discontinued; pt has not shown withdrawal sxs -Platelets stable and improving at 144 Depression - stable -Patient was started on sertraline 50 mg po daily during hospitalization. Will continue Hypocalcemia - stable and resolved at 8.9 this morning -Calcium 8.2 (Albumin 3.6 on admission) -Corrected calcium 8.5 -Calcium carbonate chew 500 mg ONCE Macrocytosis w/o anemia, likely chronic and 2/2 EtOH abuse -MCV >101 since admission; H/H stable 14.1/41.5 -B12/Folate and thiamine daily -Follow CBC FEN/GI/PPx: -Fluids: PO intake -Electrolytes: continue to monitor -Nutrition: Regular diet -GI: Protonix 40 mg daily -PPx: b/l SCDs, continue daily aspirin Dispo: in 1-2 days when mobility improves and stable per PT/OT Pt SDW Dr Rome and Dr. Soto <Sandi Chandra - 10/01/18 12:24> - Attending Attestation The exam, history, and the medical decision-making described in the above note were completed with the assistance of the resident physician. I reviewed and agree with the findings presented. I attest that I had a [id number] encounter with the patient on the same day, and personally performed and documented my assessment and findings in the medical record. Still about the same today. Therapies did not see him yesterday so he needs to stay until they work with him again. Hoping he has progressed enough for discharge tomorrow after seen then. <José Rome - 10/01/18 13:30>
[2018-10-01 13:16] VITALS: RESP 18
[2018-10-02 06:48] VITALS: TEMP 97.7
[2018-10-02] MEDS: Folic Acid 1 MG Tablet PO SCH (09:41)
[2018-10-02] MEDS: Sertraline 50 MG Tablet PO SCH (09:41)
--- NOTE | 2018-10-02 12:43 | P.PNFP ---
Subjective Interval history: Mr. Felder had no acute events overnight. Today he is sitting bedside in a chair with his legs crossed watching TV and waiting for the OT therapist to return with coffee she was going to get him. He has his rachael-correction by his side. OT therapist states he can get to the commode and able to walk with him a crutch just fine. She will get the physical therapist to work with him today to make sure he is stable for discharge. He states he is improving but still has some residual left-sided weakness in his arm and leg. Otherwise, he denies chest pain, shortness of breath, nausea, vomiting, diarrhea, abdominal or leg pain. <Javier Olivo III H - 10/02/18 12:43> Results - Labs Result diagrams: 10/01/18 09:09 10/01/18 09:09 <José Rome - 10/02/18 15:35> Physical Exam Vital signs: Vital Signs 10/01/18 16:00 10/01/18 20:00 10/02/18 00:00 Temperature 97.9 F 97.9 F 97.6 F Pulse Rate 65 64 63 Respiratory Rate 18 18 18 Blood Pressure 108/69 116/74 114/72 Pulse Oximetry 98 98 98 10/02/18 04:00 10/02/18 08:00 10/02/18 12:00 Temperature 97.7 F Pulse Rate 72 94 H 79 Respiratory Rate 18 18 18 Blood Pressure 125/84 124/79 100/67 Pulse Oximetry 99 99 96 Intake & Output 10/01/18 10/02/18 10/02/18 18:59 06:59 18:59 Output Total 1650 / 1650 Balance -1650 / -1650 Weight 60 kg Output: Urine 1650 / 1650 Other: Date of Last Bowel Movement 10/01/18 10/01/18 # Bowel Movements 1 <José Rome - 10/02/18 15:35> Vital Signs 10/01/18 16:00 10/01/18 20:00 10/02/18 00:00 Temperature 97.9 F 97.9 F 97.6 F Pulse Rate 65 64 63 Respiratory Rate 18 18 18 Blood Pressure 108/69 116/74 114/72 Pulse Oximetry 98 98 98 10/02/18 04:00 10/02/18 08:00 Temperature 97.7 F Pulse Rate 72 94 H Respiratory Rate 18 18 Blood Pressure 125/84 124/79 Pulse Oximetry 99 99 Intake & Output 10/01/18 10/02/18 10/02/18 18:59 06:59 18:59 Output Total 1650 / 1650 Balance -1650 / -1650 Weight 60 kg Output: Urine 1650 / 1650 Other: Date of Last Bowel Movement 10/01/18 # Bowel Movements 1 <Javier Olivo III - 10/02/18 12:43> Narrative: GENERAL: Comfortable and sitting in bedside chair watching TV in NAD. SKIN: Warm and dry. No rash or lesions. HEAD: Normocephalic. Atraumatic. MMM. EYES: No scleral icterus. No injection or drainage. CARDIOVASCULAR: Regular rate and rhythm without murmurs, gallops, or rubs. RESPIRATORY: Breath sounds equal bilaterally. No accessory muscle use. No wheeze, rales or rhonchi. MUSCULOSKELETAL: No cyanosis, or edema. No complaint of pain. NEUROLOGICAL: Alert and oriented x3. Moves all extremities. LUE 4+/5 and LLE 4+ /5. 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 Otherwise sensation intact on left side. <Javier Olivo III - 10/02/18 12:43> Assessment and Plan - Assessment (1) Acute ischemic stroke Code(s): I63.9 - Cerebral infarction, unspecified Status: Acute (2) HTN (hypertension) Code(s): I10 - Essential (primary) hypertension Status: Chronic (3) Alcohol abuse with alcohol-induced disorder Code(s): F10.19 - Alcohol abuse with unspecified alcohol-induced disorder Status: Chronic (4) Macrocytosis without anemia Code(s): D75.89 - Other specified diseases of blood and blood-forming organs Status: Chronic <José Rome - 10/02/18 15:35> (1) Acute ischemic stroke Code(s): I63.9 - Cerebral infarction, unspecified Status: Acute (2) HTN (hypertension) Code(s): I10 - Essential (primary) hypertension Status: Chronic (3) Alcohol abuse with alcohol-induced disorder Code(s): F10.19 - Alcohol abuse with unspecified alcohol-induced disorder Status: Chronic (4) Macrocytosis without anemia Code(s): D75.89 - Other specified diseases of blood and blood-forming organs Status: Chronic <Javier Olivo III H - 10/02/18 12:38> - Assessment and Plan 57 year old homeless male with PMHx alcohol dependence/abuse, hypotension, chronic neck and back pain, prostate problems and Hx of multiple CVAs s/p likely PFO closure by Dr Knight presented with sxs of acute ischemic CVA without neuroimaging showing CVA pathology. Acute CVA Averted -Neurology consulted -s/p tPA in the ED per protocol -Repeat CT brain 09/27 [address] remained without acute changes as noted above -Continue aspirin -Continue high intensity statin -2D echo showing normal LV systolic function with eEF of 55-60%, no regional wall motion abnormalities -Continue neuro checks -A1C 4.7 -Lipid profile showing hyperlipidemia, continue statin as above -PT/OT/ST continued as an inpatient until safe to discharge. He is homeless and lives in the [facility] which complicates discharge. -He will discharge with left arm rachael-crutch as per PT/OT HTN - stable / well controlled -BPs wnl past 24 hours -Pt has no home antihypertensives -Pt has longstanding low BP; will treat if he becomes symptomatic -Monitor VS Alcohol dependence/abuse with Hx of withdrawal sxs before - resolved -EtOH level 344 on admission -CIWA discontinued; pt has not shown withdrawal sxs -Platelets stable and improving at 144 Depression - stable -Patient was started on sertraline 50 mg po daily during hospitalization. Will continue on DC Hypocalcemia - stable and resolved at 8.9 this morning -Calcium 8.2 (Albumin 3.6 on admission) -Corrected calcium 8.5 -Calcium carbonate chew 500 mg ONCE Macrocytosis w/o anemia, likely chronic and 2/2 EtOH abuse -MCV >101 since admission; H/H stable 14.1/41.5 -B12/Folate and thiamine daily -Follow CBC FEN/GI/PPx: -Fluids: PO intake -Electrolytes: continue to monitor -Nutrition: Regular diet -GI: Protonix 40 mg daily -PPx: b/l SCDs, continue daily aspirin Dispo: discharge today if cleared/deemed safe by PT/OT Pt SDW Dr Rome <Gulshan Olivo IIItonya Sarmiento - 10/02/18 12:43> - Attending Attestation The exam, history, and the medical decision-making described in the above note were completed with the assistance of the resident physician. I reviewed and agree with the findings presented. I attest that I had a [id number] encounter with the patient on the same day, and personally performed and documented my assessment and findings in the medical record. PT reassessed today and he is doing well with cane, safe from their standpoint for discharge. still functioning well in room today Talked about how it would be important for him to establish with [facility] so he can continue with the medications that we have started here in the hospital for stroke prevention and depression. <José Rome - 10/02/18 15:35>
[2018-10-02 13:49] VITALS: BP 100/67; PULSE 79; O2SAT 96
--- NOTE | 2018-10-03 11:16 | P.DS ---
Date of admission: 09/26/18 12:01 Primary care physician: UNKNOWN Brief History from admission: 57 yo with a PMHx homelessness, alcohol abuse/dependence, orthostatic hypotension, chronic neck and back pain, prostate problems and multiple strokes in 2008, 2015, 2016 who presents with report of slurred speech yesterday and left sided weakness at around 8:30 this morning. He reports Dr. Preciado treated his first stroke. He states that his camp mate noticed he was slurring his words yesterday. Today he sat down to eat and felt "funny" and could not move his left side, so he decided to come to the hospital. In the ED Dr Hunter spoke with Dr Wyman, neurology, and tPA was started. ASA was held due to PLTs at 120. Neurochecks initiated at q15 minutes showed improvement in left sided weakness. Pt states he hates doctors because they stick him with needles and he is allergic to being stuck by needles. PMH: hypotension prostate problems chronic neck and back pain multiple CVAs PSH: Dr. Vann "plugged a hole in heart. He stuck a plug in it" (possible PFO?) Family Hx: mother: congestive heart failure father: still living at age 84 Medications: none Allergies: Penicillin Social: alcohol: drinks 4-8 beers daily tobacco: 2 packs per day illicit drugs: denies DS: Diagnosis - Discharge Diagnosis (1) Acute ischemic stroke Status: Acute (2) HTN (hypertension) Status: Chronic (3) Alcohol abuse with alcohol-induced disorder Status: Chronic (4) Macrocytosis without anemia Status: Chronic DS: Medications - Discharge Medications Prescriptions: aspirin 81 mg PO DAILY #90 tab atorvastatin 40 mg PO HS #90 tab sertraline [Zoloft] 50 mg PO DAILY #90 tab DS: Summary Hospital Course: Patient was diagnosed with a acute averted stroke status post TPA administration. He did have left sided weakness that improved during the hospitalization. He worked with physical therapy and occupational therapy daily. On the day of discharge, he was ambulating well with a cane and was found to be safe to discharge to his community. Patient was also found to be depressed during hospitalization. He was started on sertraline 50 mg daily. He lives in the [facility], so this complicated his discharge and extended his stay. Upon discharge he was given 90-day supply of aspirin, atorvastatin, and sertraline. He was instructed to follow-up at [facility]. - Time Spent with Patient Total time spent providing and/or coordinating discharge services: Greater than 30 minutes - Quality: Stroke Last date observed well: 09/26/18 Last time observed well: 09:50 - Quality: VTE Deep Vein Thrombosis/Pulmonary Embolism Present on Admission: No Exam Vital signs: Vital Signs 10/02/18 12:00 Pulse Rate 79 Respiratory Rate 18 Blood Pressure 100/67 Pulse Oximetry 96 Intake & Output 10/02/18 10/03/18 10/03/18 18:59 06:59 18:59 Other: Date of Last Bowel Movement 10/01/18 Results Procedures completed during hospitalization: none - Impressions ITS Impressions Head MRI 09/26/18 00:00 CONCLUSION: 1. No acute intracranial abnormality. 2. Prior infarctions involving the right parietal lobe and left frontal lobe. These are long-term stable. Head CTA 09/26/18 10:35 CONCLUSION: 1. Negative CTA Head. Report was called by Dr. Rodriguez to at 11:14 AM on 09/26/2018.] Neck CTA 09/26/18 10:35 CONCLUSION: 1. No evidence of carotid or vertebral stenosis or occlusion. 2. Scattered emphysematous changes are noted within the visualized upper lung ramos. Chest X-Ray 09/26/18 10:36 CONCLUSION: COPD changes. Head CT 09/27/18 11:33 CONCLUSION: 1. Stable CT scan of the head with old infarct right sylvian region. 2. No parenchymal hemorrhage. . Discharge Plan - Discharge Disposition Patient Disposition: 01 Discharge Home - Discharge Condition Condition: Stable - Discharge Order Discharge Orders: Discharge Order (Routine); Ordered 10/02/18 Ordered By: Javier Olivo III - Discharge Details Anticipated Discharge Date: 10/02/18 Discharge Comment: Can discharge home when cleared by PT/OT - Physicians Team Primary Care Provider: UNKNOWN, Attending Provider: José Rome Other Providers: Madi Wyman MD
== END 2018-10-02 14:40 | disposition home or self-care (01) ==
LOC: NEPE 10:31 → NEDA 12:01 → N03 13:00 → N05 09-27 18:25
PROVIDERS: ADMIT Family Medicine; ATTEND Family Medicine